=== PATIENT | female | born 1990 | race Caucasian/White ===

== ENCOUNTER 2018-01-29 16:20 | Emergency (ER) | payer BC, SELFPAY ==
[2018-01-29 16:44] VITALS: BP 113/65; PULSE 77; RESP 18; TEMP 37; O2SAT 99; BMI 27.4
[2018-01-29 17:02] LABS: UTC Influenza A Antigen Negative (Negative); UTC Influenza B Antigen Negative (Negative); UTC Strep Screen (Rapid) Negative (Negative)
[2018-01-29 17:26] VITALS: BP 113/65; PULSE 77; RESP 18; TEMP 37
--- NOTE | 2018-01-29 17:29 | HMH.EDUTC ---
[facility] [place] Clinical Impression: URI (upper respiratory infection) Qualifiers: URI type: unspecified URI Qualified Code(s): J06.9 - Acute upper respiratory infection, unspecified Disposition: Home, Self-Care Condition on Discharge: Good Instructions: Sore Throat Additional Instructions: * Monitor Temp. Tylenol and/or Ibuprofen as needed. ER if fever is no less than 101 despite alternating Tylenol and Ibuprofen * Encourage fluids, water, Gatorade, powerade, pedialyte if /toddler/or child * Warm salt water gargles for throat irritation *Warm fluids *Sore throat lozenges *Sleep elevated *humidifier or vaporizer Lots of rest Increase fluids, water, Gatorade, powerade *Your throat swab was sent to lab for culture. Those results area typically sent to your primary care physician. Be sure to follow up in 2-3 days if no improvement so they can review those results and treat if necessary If you dont have primary care I recommend you get one, but in the mean time you will have to return to a walk in clinic Follow up IMMEDIATELY for new or worsening of symptoms OR no noticeable improvement over the next 48-72 hours. 911 immediately for any life threatening symptoms such as chest pain or difficulty breathing Prescriptions: Azithromycin [Z-Sergo 250mg Tab] 250 mg PO UD DOSE PK #6 tab predniSONE [Prednisone 20mg Tab] 20 mg PO BID #10 tab Referrals: Manish Hilton MD [Primary Care Provider] - Forms: Work/School Release Time of Disposition: 17:34 Medical Decision Making - Medical Records Medical records reviewed: Yes: I reviewed the patient's medical records. - Gregorio Inquiry Pt receiving controlled substance: No Gregorio was queried for this patient: No Vital Signs: 01/29/18 16:44 01/29/18 17:26 Temperature 98.6 F 98.6 F Temperature Source Temporal Artery Scan Pulse Rate 77 Pulse Rate [Right] 77 Respiratory Rate 18 18 Blood Pressure 113/65 Blood Pressure [Right Arm] 113/65 Blood Pressure Mean [Right Arm] 81 Blood Pressure Source [Right Arm] Automatic Cuff Blood Pressure Position [Right Arm] Sitting 02 Sat by Pulse Oximetry 99 Oxygen Delivery Method Room Air - Lab Data Lab results reviewed: Yes: I reviewed the patient's lab results. Lab Results 01/29/18 17:00: Influenza Type A Ag Negative, Influenza Type B Ag Negative, Strep Scn Rapid Clinic Negative Orders (Tests/Meds): ORDERS Category Date Time Status Strep Screen Confirmation Stat Micro 01/29/18 17:00 Received [facility] – [place] HPI - General Stated complaint: sore throat Time Seen by Provider: 01/29/18 17:00 Mode of Arrival: Ambulatory Source of Information: Patient Limitations: No Limitations Description of Symptoms (Recalled from Triage Doc. by RN): SORE THROAT, FEVER HEENT Symptoms (Recalled from RN notes): Yes Resp Symptoms (Recalled from RN notes): No Skin Symptoms (Recalled from RN notes): No MS Symptoms (Recalled from RN notes): No Functional Status (Recalled from RN notes): N - History of Present Illness Provider Complaint: Patient state that she has had sore throat for several days now that has continued to get worse State that she use to have strep alot when she was a child and this feels like it did then State that throat feels raw and irritated and has continued to get worse Last night she ran a low grade fever and today she has continued to run the fever on and off so her brought her in to get her checked out - Related Data Previous Rx's Medication Instructions Recorded Azithromycin [Z-Sergo 250mg Tab] 250 mg PO UD DOSE PK #6 tab 01/29/18 predniSONE [Prednisone 20mg 20 mg PO BID #10 tab 01/29/18 Tab] Allergies Allergy/AdvReac Type Severity Reaction Status Date / Time Sulfa (Sulfonamide Allergy Unknown R/T Verified 01/29/18 16:47 Antibiotics) AUTOIMMUNE [SULFA (SULFONAMIDE DISEASE ANTIBIOTICS)] - Worker's Comp Is this a Worker's Comp case?: No [facility] History
--- NOTE | 2018-01-29 17:32 | ED_ITS ---
[facility] – [place] Disposition Clinical Impression: URI (upper respiratory infection) Qualifiers: URI type: unspecified URI Qualified Code(s): J06.9 - Acute upper respiratory infection, unspecified Disposition: Home, Self-Care Condition on Discharge: Good Instructions: Sore Throat Additional Instructions: * Monitor Temp. Tylenol and/or Ibuprofen as needed. ER if fever is no less than 101 despite alternating Tylenol and Ibuprofen * Encourage fluids, water, Gatorade, powerade, pedialyte if /toddler/or child * Warm salt water gargles for throat irritation *Warm fluids *Sore throat lozenges *Sleep elevated *humidifier or vaporizer Lots of rest Increase fluids, water, Gatorade, powerade *Your throat swab was sent to lab for culture. Those results area typically sent to your primary care physician. Be sure to follow up in 2-3 days if no improvement so they can review those results and treat if necessary If you don? t have primary care I recommend you get one, but in the mean time you will have to return to a walk in clinic Follow up IMMEDIATELY for new or worsening of symptoms OR no noticeable improvement over the next 48-72 hours. 911 immediately for any life threatening symptoms such as chest pain or difficulty breathing Prescriptions: Azithromycin [Z-Sergo 250mg Tab] 250 mg PO UD DOSE PK #6 tab predniSONE [Prednisone 20mg Tab] 20 mg PO BID #10 tab Referrals: Manish Hilton MD [Primary Care Provider] - Forms: Work/School Release Time of Disposition: 17:34 Medical Decision Making - Medical Records Medical records reviewed: Yes: I reviewed the patient's medical records. - Gregorio Inquiry Pt receiving controlled substance: No Gregorio was queried for this patient: No Vital Signs: 01/29/18 16:44 01/29/18 17:26 Temperature 98.6 F 98.6 F Temperature Source Temporal Artery Scan Pulse Rate 77 Pulse Rate [Right] 77 Respiratory Rate 18 18 Blood Pressure 113/65 Blood Pressure [Right Arm] 113/65 Blood Pressure Mean [Right Arm] 81 Blood Pressure Source [Right Arm] Automatic Cuff Blood Pressure Position [Right Arm] Sitting 02 Sat by Pulse Oximetry 99 Oxygen Delivery Method Room Air - Lab Data Lab results reviewed: Yes: I reviewed the patient's lab results. Lab Results 01/29/18 17:00: Influenza Type A Ag Negative, Influenza Type B Ag Negative, Strep Scn Rapid Clinic Negative Orders (Tests/Meds): ORDERS Category Date Time Status Strep Screen Confirmation Stat Micro 01/29/18 17:00 Received [facility] [place] HPI - General Stated complaint: sore throat Time Seen by Provider: 01/29/18 17:00 Mode of Arrival: Ambulatory Source of Information: Patient Limitations: No Limitations Description of Symptoms (Recalled from Triage Doc. by RN): SORE THROAT, FEVER HEENT Symptoms (Recalled from RN notes): Yes Resp Symptoms (Recalled from RN notes): No Skin Symptoms (Recalled from RN notes): No MS Symptoms (Recalled from RN notes): No Functional Status (Recalled from RN notes): N - History of Present Illness Provider Complaint: Patient state that she has had sore throat for several days now that has continued to get worse State that she use to have strep alot when she was a child and this feels like it did then State that throat feels raw and irritated and has continued to get worse Last night she ran a low grade fever and today she has continued to run the fever on and
== END 2018-01-29 17:40 | disposition home or self-care (01) ==
PROVIDERS: Emergency Provider Nurse Practitioner; Family Provider Emergency Medicine; PCP Emergency Medicine
DX: J06.9 Acute upper respiratory infection, unspecified (principal); Z88.2 Allergy status to sulfonamides
CPT/HCPCS: 87804; 87880; 99202

== ENCOUNTER → 2018-03-07 14:28 | Outpatient (CLI) | payer BC, SELFPAY ==
[2018-03-07 18:15] LABS: Basophils % 0.4 % (0.1-2.0); Eosinophils # 0.1 K/mm3 (0.0-0.4); Eosinophils % 1.6 % (0.1-12.0); Hematocrit 36.3 % (37.0-47.0); Hemoglobin 12.1 g/dL (12.2-16.2); Lymphocytes # 1.8 K/mm3 (0.7-4.5); Lymphocytes % 22.9 K/mm3 (10-50); Mean Corpuscular HGB Conc 33.3 g/dL (31.8-35.4); Mean Corpuscular Hemoglobin 29.6 pg (27.0-31.2); Mean Platelet Volume 8.7 fl (7.4-10.4); Monocytes # 0.6 K/mm3 (0.1-1.0); Monocytes % 7.8 % (1.7-9.3); Neutrophils # 5.4 K/mm3 (1.8-7.8); Neutrophils % 67.3 % (37.0-80.0); Platelet Count 337 K/mm3 (142-424); Red Blood Count 4.07 M/mm3 (4.20-5.40); Red Cell Distribution Width 13.2 % (11.5-17.5)
[2018-03-07 18:41] LABS: Alanine Aminotransferase 22 U/L (12-78); Albumin Level 3.6 gm/dL (3.4-5.0); Albumin/Globulin Ratio 1.1 (1.1-1.8); Alkaline Phosphatase 69 U/L (46-116); Aspartate Amino Transferase 15 U/L (15-37); Bilirubin,Total 0.3 mg/dL (0.2-1.0); Blood Urea Nitrogen 10 mg/dL (7-18); Carbon Dioxide 27 mmol/L (21.0-32.0); Chloride 106 mmol/L (98-107); Chol/HDL Ratio 2.4 (1-3.5); Cholesterol 169 mg/dL (140-200); Creatinine,Serum 0.69 mg/dL (0.55-1.02); Estimated Glomerular Filt Rate 103 ml/min (>60); GFR (African American) 124 ML/MIN (>60); Globulin 3.3 gm/dl (1.3-3.2); Glucose 87 mg/dL (74-106); HDL Cholesterol 71 mg/dL (29-89); LDL Cholesterol 91 mg/dL (0-130); Sodium 142 mmol/L (136-145); Total Protein,Serum 6.9 gm/dL (6.4-8.2); Triglycerides 34 mg/dL (30-200); VLDL Cholesterol 7 mg/dL (0-40)
== END ==
PROVIDERS: Visit Provider Nurse Practitioner Family
DX: R53.83 Other fatigue (principal); R10.9 Unspecified abdominal pain
CPT/HCPCS: 80053; 80061; 83013; 85025

== ENCOUNTER → 2018-03-13 14:44 | Outpatient (CLI) | payer BC, SELFPAY ==
--- NOTE | 2018-03-13 14:47 | US_ITS ---
US breast LT complete INDICATION: Pain the left breast, breast pain ORDERING PHYSICIAN: Aristeo Kapoor MD PATIENT AGE: 28 years TECHNIQUE: Standard ultrasound of the breast and axilla FINDINGS: No discrete solid or cystic mass evident. Small nodes are present in the axilla. IMPRESSION: Unremarkable left breast ultrasound BI-RADS Category: 1 Negative RECOMMENDED FOLLOW-UP: 1YR - 1 YEAR FOLLOW-UP Follow-up recommended As clinically warranted. Negative ultrasound does not exclude the possibility of malignancy. Any palpable abnormality should be managed on a clinical basis (A letter has been sent to the patient regarding results of the study.)
--- NOTE | 2018-03-13 14:47 | US_ITS ---
US breast RT complete COMPARISON: INDICATION: ORDERING PHYSICIAN: Aristeo Kapoor MD PATIENT AGE: 28 years TECHNIQUE: Standard ultrasound of the breast and axilla FINDINGS: No discrete solid mass evident. 3 mm cyst is present at 12:00 near the nipple Small nodes are present in the axilla. IMPRESSION: Small cyst near the nipple otherwise negative right breast ultrasound BI-RADS Category: 2 Benign Finding(s) Follow-up recommended As clinically warranted. Negative ultrasound does not exclude the possibility of malignancy. Any palpable abnormality should be managed on a clinical basis (A letter has been sent to the patient regarding results of the study.)
== END ==
PROVIDERS: Family Provider Emergency Medicine; PCP Emergency Medicine; Visit Provider Nurse Practitioner Obstetrics & Gynecology
DX: N60.12 Diffuse cystic mastopathy of left breast (principal); N60.11 Diffuse cystic mastopathy of right breast
CPT/HCPCS: 76641

== ENCOUNTER → 2018-03-18 07:50 | Outpatient (CLI) | payer BC, SELFPAY ==
--- NOTE | 2018-03-18 07:52 | US_ITS ---
US gallbladder HISTORY: Mid abdominal pain ITS.REASON: pain ORDERING PHYSICIAN: VIDA Lucas PATIENT AGE: 28 years COMPARISON: FINDINGS: PANCREAS: Unremarkable. No obvious mass or abnormal fluid collection. No ductal dilatation LIVER: No focal liver lesions demonstrated. Homogeneous echogenicity. No intrahepatic biliary ductal dilatation evident RIGHT KIDNEY: Unremarkable. Normal size and echogenicity. No hydronephrosis GALLBLADDER: No gallstones, gallbladder wall thickening, pericholecystic fluid, or biliary dilatation. Small amount sludge is present. IMPRESSION: Small amount sludge versus concentrated bile questionable clinical significance otherwise negative right upper quadrant ultrasound.
[2018-03-21 13:02] LABS: H. pylori Breath Test Negative (Negative)
== END ==
PROVIDERS: Nurse Practitioner Family; Family Provider Emergency Medicine; PCP Emergency Medicine; Visit Provider Physician Assistant
DX: R10.11 Right upper quadrant pain (principal); R10.9 Unspecified abdominal pain
CPT/HCPCS: 76705; 83013

== ENCOUNTER → 2018-04-10 10:53 | Outpatient (CLI) | payer BC, SELFPAY ==
--- NOTE | 2018-04-10 10:55 | NM_ITS ---
NM hepatobiliary w pharm HISTORY: Abdominal pain, ITS.REASON: gallbladder sludge ORDERING PHYSICIAN: Manish Hilton MD PATIENT AGE: 28 years COMPARISON: None DOSE: 7.97 mCi tc choletec 1,4 mcg inj into LT ant FINDINGS: Homogeneous activity is present within the hepatic parenchyma. Activity is present in the gallbladder by 10 minutes. Activity is present in the small bowel by 10 minutes. The gallbladder ejection fraction is calculated to be 89% The patient did not report pain or other symptoms during CCK infusion. IMPRESSION: Unremarkable hepatobiliary scan and gallbladder ejection fraction. No evidence of common or cystic duct obstruction with normal gallbladder ejection fraction
== END ==
PROVIDERS: Family Provider Emergency Medicine; PCP Emergency Medicine; Visit Provider Emergency Medicine
DX: R10.11 Right upper quadrant pain (principal)
CPT/HCPCS: 78227; A9537; J2805

== ENCOUNTER → 2018-04-30 15:19 | Outpatient (CLI) | payer BC, SELFPAY ==
[2018-04-30 15:40] LABS: Basophils # 0.1 K/mm3 (0-0.2); Basophils % 0.6 % (0.1-2.0); Eosinophils # 0.2 K/mm3 (0.0-0.4); Eosinophils % 2.8 % (0.1-12.0); Hematocrit 42.1 % (37.0-47.0); Hemoglobin 13.6 g/dL (12.2-16.2); Lymphocytes # 2.2 K/mm3 (0.7-4.5); Lymphocytes % 26.7 K/mm3 (10-50); Mean Corpuscular HGB Conc 32.4 g/dL (31.8-35.4); Mean Corpuscular Hemoglobin 28.8 pg (27.0-31.2); Mean Corpuscular Volume 88.9 fl (81-99); Mean Platelet Volume 7.7 fl (7.4-10.4); Monocytes # 0.5 K/mm3 (0.1-1.0); Monocytes % 6.2 % (1.7-9.3); Neutrophils # 5.3 K/mm3 (1.8-7.8); Neutrophils % 63.7 % (37.0-80.0); Platelet Count 352 K/mm3 (142-424); Red Blood Count 4.73 M/mm3 (4.20-5.40); Red Cell Distribution Width 12.9 % (11.5-17.5); White Blood Count 8.3 K/mm3 (4.8-10.8)
[2018-04-30 17:19] LABS: HCG,Quantitative 0 mIU/mL
== END ==
PROVIDERS: Visit Provider Otolaryngology
DX: Z01.818 Encounter for other preprocedural examination (principal); D22.30 Melanocytic nevi of unspecified part of face; L98.9 Disorder of the skin and subcutaneous tissue, unspecified
CPT/HCPCS: 36415; 84702; 85025; 93005

== ENCOUNTER → 2018-11-25 15:39 | Outpatient (CLI) | payer BC, SELFPAY ==
[2018-11-25 16:32] LABS: Basophils % 0.4 % (0.1-2.0); Eosinophils # 0.2 K/mm3 (0.0-0.4); Hematocrit 42.1 % (37.0-47.0); Hemoglobin 13.8 g/dL (12.2-16.2); Lymphocytes # 2.7 K/mm3 (0.7-4.5); Lymphocytes % 29.1 % (10-50); Mean Corpuscular HGB Conc 32.8 g/dL (31.8-35.4); Mean Corpuscular Hemoglobin 28.7 pg (27.0-31.2); Mean Corpuscular Volume 87.3 fl (81-99); Mean Platelet Volume 7.9 fl (7.4-10.4); Monocytes # 0.4 K/mm3 (0.1-1.0); Monocytes % 3.9 % (1.7-9.3); Neutrophils # 6.1 K/mm3 (1.8-7.8); Neutrophils % 64.5 % (37.0-80.0); Platelet Count 422 K/mm3 (142-424); Red Blood Count 4.82 M/mm3 (4.20-5.40); Red Cell Distribution Width 13.2 % (11.5-17.5); White Blood Count 9.4 K/mm3 (4.8-10.8)
[2018-11-25 19:20] LABS: Thyroid Stimulating Hormone 0.86 uIU/ml (0.358-3.740)
[2018-11-27 13:40] LABS: RA Latex Turbid. <10.0 IU/mL (0.0-13.9); Vitamin B12 650 pg/mL (232-1245); Vitamin D 25 Hydroxy 32.3 ng/mL (30.0-100.0)
[2018-11-27 15:15] LABS: Anti-Centromere B Antibodies <0.2 AI (0.0-0.9); Anti-Jo-1 <0.2 AI (0.0-0.9); Anti-Smith Antibody <0.2 AI (0.0-0.9); Antichromatin Antibodies <0.2 AI (0.0-0.9); Antiscleroderma-70 Antibodies <0.2 AI (0.0-0.9); RNP Antibodies <0.2 AI (0.0-0.9); Sjogren's Anti-SS-A <0.2 AI (0.0-0.9); Sjogren's Anti-SS-B <0.2 AI (0.0-0.9)
[2018-11-28 03:37] LABS: PTT-LA 35.9 sec (0.0-51.9); dRVVT 45.4 sec (0.0-47.0)
[2018-11-28 06:15] LABS: Anti-DNA (DS) Ab Qn 1 IU/mL (0-9)
[2018-11-28 06:16] LABS: Lupus Reflex Interpretation Comment: (.)
[2018-11-28 22:56] LABS: Anti-Cyclic Citrullinated Pept 7 units (0-19)
== END ==
PROVIDERS: Visit Provider Nurse Practitioner Family
DX: R53.83 Other fatigue (principal)
CPT/HCPCS: 36415; 82607; 82652; 84443; 85025; 85613; 86200; 86225; 86235; 86431

== ENCOUNTER → 2019-04-20 18:22 | Outpatient (CLI) | payer BC, SELFPAY | PROVIDERS: Visit Provider Nurse Practitioner Family | DX: N39.0 Urinary tract infection, site not specified (principal) | CPT/HCPCS: 87086 ==

== ENCOUNTER → 2019-05-06 14:28 | Outpatient (CLI) | payer BC, SELFPAY ==
--- NOTE | 2019-05-06 14:29 | US_ITS ---
US transvaginal HISTORY: Pelvic pain ITS.REASON: US T/V- Pelvic pain ORDERING PHYSICIAN: Aristeo Kapoor MD PATIENT AGE: 29 years Comparison: FINDINGS: Uterus measures 8.3 x 4 x 5 cm with a combined endometrial thickness of 6 mm. No mass. The ovaries have an unremarkable appearance. Blood flow is present within both ovaries. No cul-de-sac fluid. IMPRESSION: Unremarkable pelvic ultrasound
== END ==
PROVIDERS: PCP Emergency Medicine; Visit Provider Nurse Practitioner Obstetrics & Gynecology
DX: R10.2 Pelvic and perineal pain (principal)
CPT/HCPCS: 76830

== ENCOUNTER → 2019-07-02 12:20 | Outpatient (CLI) | payer BC, SELFPAY ==
[2019-07-04 08:31] LABS: Immunoglobulin A, Qn 183 mg/dL (87-352); Immunoglobulin G, Qn 915 mg/dL (700-1600)
[2019-07-04 22:27] LABS: Immunoglobulin M, Qn 72 mg/dL (26-217)
[2019-07-06 18:53] LABS: Tetanus Antitoxoid IgG Ab 0.94 IU/mL (<0.10)
[2019-07-07 17:10] LABS: Antibody Screen Negative (.)
[2019-07-08 07:25] LABS: Complement, Total (CH50) >60 U/mL (42-999999)
[2019-07-14 10:13] LABS: Pneumo Ab Type 14* 1.6 ug/mL (>1.3); Pneumo Ab Type 19 (19F)* 1.3 ug/mL (>1.3); Pneumo Ab Type 23 (23F)* <0.1 ug/mL (>1.3); Pneumo Ab Type 26 (6B)* 0.2 ug/mL (>1.3); Pneumo Ab Type 4* 0.2 ug/mL (>1.3); Pneumo Ab Type 56 (18C)* <0.1 ug/mL (>1.3)
[2019-07-14 10:32] LABS: Pneumo Ab Type 68 (9V)* 0.8 ug/mL (>1.3)
== END ==
PROVIDERS: Visit Provider Allergy & Immunology Allergy
DX: D84.9 Immunodeficiency, unspecified (principal)
CPT/HCPCS: 36415; 82784; 86003; 86161; 86162; 86280; 86609; 86648; 86774

== ENCOUNTER → 2019-12-01 15:27 | Outpatient (CLI) | payer BC, SELFPAY ==
[2019-12-01 17:05] LABS: Thyroid Stimulating Hormone 0.66 uIU/ml (0.358-3.740)
[2019-12-03 05:49] LABS: Iron 106 ug/dL (27-159); UIBC 223 ug/dL (131-425)
[2019-12-03 17:02] LABS: Iron Saturation 32 % (15-55); Vitamin B12 959 pg/mL (232-1245); Vitamin D 25 Hydroxy 33.4 ng/mL (30.0-100.0)
== END ==
PROVIDERS: Visit Provider Nurse Practitioner Psychiatric/Mental Health
DX: Z00.00 Encounter for general adult medical examination without abnormal findings (principal)
CPT/HCPCS: 36415; 82607; 82652; 83540; 83550; 84443

== ENCOUNTER 2020-05-17 20:25 | Emergency (ER) | payer BC, SELFPAY ==
[2020-05-17 20:43] VITALS: BP 110/65; PULSE 76; RESP 20; TEMP 36.9; O2SAT 98; BMI 30.4
[2020-05-17 20:56] VITALS: BP 124/70; PULSE 85; RESP 16; TEMP 37.2; O2SAT 99; BMI 30.3
--- NOTE | 2020-05-17 21:00 | PC.NURSE ---
PATIENT SENT TO ER PER ANNIE MACKENZIE APRN FOR FURTHER EVALUATION OF ABDOMINAL PAIN
--- NOTE | 2020-05-17 21:02 | HMH.EDABDPAI ---
ED Disposition Clinical Impression: Abdominal cramping Disposition: Home, Self-Care Condition on Discharge: Fair Instructions: DI for Acute Abdomen Additional Instructions: Reviewed labs and note mild renal failure; You received IV fluids for this; otherwise urine analysis,. CBC and CMP are essentially within normal limits. Will dc home With a prescription for Bentyl. Please follow up as needed Prescriptions: Dicyclomine HCl [Bentyl 10mg capsule] 10 mg PO TID PRN #10 cap PRN Reason: Cramping Transmission Status: Pending to [id number] Referrals: Manish Hilton MD [Primary Care Provider] - Time of Disposition: 22:01 - Critical Care Critical Care Time: No Attestation: On 05/17/20, the high probability of a clinically significant, sudden or life threatening deterioration of the following system(s) required my full and direct attention, intervention and personal management. The time I documented below is in addition to time spent performing reported procedures but includes the following listed in this critical care notation. Medical Decision Making - Medical Records Medical records reviewed: Yes: I reviewed the patient's medical records. MR Comment: 30-year-old female with a complaint of nonspecific diffuse abdominal pain, started this morning, no focal areas of pain, denies , history of IBS and takes Linzess for this. Reviewed labs and note mild renal failure; patient is getting IV fluids for this otherwise urine analysis CBC and CMP are essentially within normal limits. Will dc home With a prescription for Bentyl and advising follow up as needed - Gregorio Inquiry Pt receiving controlled substance: No Vital Signs: 05/17/20 20:43 05/17/20 20:56 Temperature 98.4 F 98.9 F Temperature Source Oral Oral Pulse Rate [Right Brachial] 76 85 Respiratory Rate 20 16 Blood Pressure [Right Arm] 110/65 124/70 Blood Pressure Mean [Right Arm] 80 88 Blood Pressure Source [Right Arm] Automatic Cuff Automatic Cuff Blood Pressure Position [Right Arm] Sitting Supine 02 Sat by Pulse Oximetry 98 99 Oxygen Delivery Method Room Air Room Air - Lab Data Lab Results 05/17/20 20:35: Urine Color Yellow, Urine Appearance Clear, Urine pH 5.5, Ur Specific [place] >= 1.030, Urine Protein Negative, Urine Glucose (UA) Negative, Urine Ketones Negative, Urine Blood Negative, Urine Nitrate Negative, Urine Bilirubin Negative, Urine Urobilinogen 0.2, Ur Leukocyte Esterase Negative 05/17/20 20:35: Urine HCG, Qual Negative 05/17/20 21:10: WBC 9.6, RBC 4.74, Hgb 14.3, Hct 41.6, MCV 87.7, MCH 30.1, MCHC 34.4, RDW 13.1, Plt Count 311, MPV 7.7, Neut % (Auto) 61.6, Lymph % (Auto) 29.9, [place] % (Auto) 5.6, Eos % (Auto) 2.2, Baso % (Auto) 0.7, Neut # (Auto) 5.9, Lymph # (Auto) 2.9, [place] # (Auto) 0.5, Eos # (Auto) 0.2, Baso # (Auto) 0.1 05/17/20 21:10: Sodium 141, Potassium 3.5, Chloride 103, Carbon Dioxide 26, Anion Gap 15.5 H, BUN 16, Creatinine 1.20 H, Estimated Creat Clear 82, Estimated GFR 53 L, Est GFR ( Amer) 64, Glucose 87, Calcium 9.7, Total Bilirubin 0.3, AST 23, ALT 17, Alkaline Phosphatase 62, Total Protein 8.1, Albumin 4.8, Globulin 3.3 H, Albumin/Globulin Ratio 1.5, Amylase 66, Lipase 89 05/17/20 21:30: Urine Color Yellow, Urine Appearance Clear, Urine pH 5.5, Ur Specific [place] >= 1.030, Urine Protein Negative, Urine Glucose (UA) Negative, Urine Ketones Negative, Urine Blood Negative, Urine Nitrate Negative, Urine Bilirubin Negative, Urine Urobilinogen 0.2, Ur Leukocyte Esterase Negative Result diagrams: 05/17/20 21:10 05/17/20 21:10 Orders (Tests/Meds): ED MEDICATIONS Generic Name Dose Route Start Last Admin Trade Name Freq PRN Reason Stop Dose Admin Sodium Chloride 1,000 mls @ 999 mls/hr 05/17/20 21:45 05/17/20 21:46 Sod Chlor 0.9% 1000ml Bag IV 05/17/20 22:45 999 mls/hr .[id number] SOLOMON Administration Discontinued Medications Generic Name Dose Route Start Last Admin Trade Name Freq
[2020-05-17 21:07] LABS: Microscopic, Urine URINE MICROSCOPIC (MICROSCOPIC)
[2020-05-17 21:10] LABS: Appearance,Urine CLEAR (Clear); Bilirubin,Urine Negative (Negative); Blood, Urine Negative (Negative); Color,Urine YELLOW (Yellow); Glucose,Urine (UA) Negative (Negative); Ketones,Urine Negative (Negative); Leukocyte Esterase,Urine Negative (Negative); Nitrate,Urine Negative (Negative); PH,Urine 5.5 (5.0-8.5); Protein,Urine Negative (Negative); Specific Gravity, Urine >= 1.030 (1.005-1.030); Urobilinogen,Urine 0.2 EU/dl (0.2)
[2020-05-17 21:13] LABS: Urine Pregnancy, HCG Qual. Negative (Negative)
[2020-05-17 21:16] LABS: Basophils # 0.1 K/mm3 (0-0.2); Basophils % 0.7 % (0.1-2.0); Eosinophils # 0.2 K/mm3 (0.0-0.4); Eosinophils % 2.2 % (0.1-12.0); Hematocrit 41.6 % (37.0-47.0); Hemoglobin 14.3 g/dL (12.2-16.2); Lymphocytes # 2.9 K/mm3 (0.7-4.5); Lymphocytes % 29.9 % (10-50); Mean Corpuscular HGB Conc 34.4 g/dL (31.8-35.4); Mean Corpuscular Hemoglobin 30.1 pg (27.0-31.2); Mean Corpuscular Volume 87.7 fl (81-99); Mean Platelet Volume 7.7 fl (7.4-10.4); Monocytes # 0.5 K/mm3 (0.1-1.0); Monocytes % 5.6 % (1.7-9.3); Neutrophils # 5.9 K/mm3 (1.8-7.8); Neutrophils % 61.6 % (37.0-80.0); Platelet Count 311 K/mm3 (142-424); Red Blood Count 4.74 M/mm3 (4.20-5.40); Red Cell Distribution Width 13.1 % (11.5-17.5); White Blood Count 9.6 K/mm3 (4.8-10.8)
[2020-05-17 21:24] LABS: Chloride 103 mmol/L (98-107); Potassium 3.5 mmoL/L (3.5-5.1); Sodium 141 mmol/L (136-145)
[2020-05-17 21:26] LABS: Amylase 66 U/L (30-110)
[2020-05-17 21:27] LABS: Alanine Aminotransferase 17 U/L (12-78); Albumin Level 4.8 g/dl (3.5-5.0); Albumin/Globulin Ratio 1.5 (1.1-1.8); Alkaline Phosphatase 62 U/L (38-126); Anion Gap 15.5 mEq/L (5-15); Aspartate Amino Transferase 23 U/L (14-36); Bilirubin,Total 0.3 mg/dl (0.2-1.3); Blood Urea Nitrogen 16 mg/dl (7-17); Calcium 9.7 mg/dl (8.4-10.2); Carbon Dioxide 26 mmol/L (22.0-30.0); Creatinine Clearance Estimated 82 mL/min (50-200); Estimated Glomerular Filt Rate 53 ml/min (>60); GFR (African American) 64 ML/MIN (>60); Globulin 3.3 g/dL (1.3-3.2); Glucose 87 mg/dl (74-100); Lipase 89 U/L (23-300); Total Protein,Serum 8.1 g/dl (6.3-8.2)
[2020-05-17 21:31] LABS: Apearance,Urine Clear (Clear); Color,Urine Yellow (Yellow); PH,Urine 5.5 (5.0-8.5)
[2020-05-17 21:32] LABS: Bilirubin,Urine Negative (Negative); Blood, Urine Negative (Negative); Glucose,Urine (UA) Negative (Negative); Ketones,Urine Negative (Negative); Protein,Urine Negative (Negative); Specific Gravity, Urine >= 1.030 (1.005-1.030); UTC Leukocyte Esterase,Urine Negative (Negative); UTC Nitrate,Urine Negative (Negative); Urobilinogen,Urine 0.2 EU/dl (0.2)
[2020-05-17 21:59] LABS: Bacteria,Urine 1+ /lpf
[2020-05-17 22:17] VITALS: BP 161/84; PULSE 99; RESP 14; TEMP 37.1; O2SAT 99
== END 2020-05-17 22:23 | disposition home or self-care (01) ==
LOC: UTC 20:38 → ER 20:50
PROVIDERS: Nurse Practitioner Family; Emergency Provider Emergency Medicine; PCP Emergency Medicine
DX: R10.10 Upper abdominal pain, unspecified (principal); I10 Essential (primary) hypertension; K58.9 Irritable bowel syndrome, unspecified; Z79.899 Other long term (current) drug therapy; Z88.2 Allergy status to sulfonamides
CPT/HCPCS: 80053; 81001; 81003; 81025; 82150; 83690; 85025; 96365; 96375; 99283; J2405

== ENCOUNTER → 2020-06-06 17:17 | Outpatient (CLI) | payer BC, SELFPAY ==
[2020-06-06 17:37] LABS: Chloride 104 mmol/L (98-107); Potassium 4.8 mmoL/L (3.5-5.1); Sodium 140 mmol/L (136-145)
[2020-06-06 17:40] LABS: Anion Gap 14.8 mEq/L (5-15); Blood Urea Nitrogen 11 mg/dl (7-17); Carbon Dioxide 26 mmol/L (22.0-30.0); Estimated Glomerular Filt Rate 74 ml/min (>60); GFR (African American) 90 ML/MIN (>60); Glucose 80 mg/dl (74-100)
== END ==
PROVIDERS: Visit Provider Emergency Medicine
DX: R79.89 Other specified abnormal findings of blood chemistry (principal)
CPT/HCPCS: 80048

== ENCOUNTER 2020-08-22 08:05 | Emergency (ER) | payer BC, SELFPAY ==
[2020-08-22 08:07] VITALS: BP 113/73; PULSE 95; RESP 16; TEMP 37; O2SAT 100; BMI 29.2
--- NOTE | 2020-08-22 08:11 | HMH.EDGENADL ---
ED Disposition Clinical Impression: Bruised toe Disposition: Home, Self-Care Condition on Discharge: Good Instructions: Toe Sprain Additional Instructions: Take Tylenol/ibuprofen as needed for pain. Use ice packs to help with swelling. May also take toes together/cristela taping to help alleviate pressure. Avoid strenuous exercise or running until swelling improves. Referrals: Manish Hilton MD [Primary Care Provider] - - Critical Care Critical Care Time: No Attestation: On , the high probability of a clinically significant, sudden or life threatening deterioration of the following system(s) required my full and direct attention, intervention and personal management. The time I documented below is in addition to time spent performing reported procedures but includes the following listed in this critical care notation. Medical Decision Making - Medical Records Medical records reviewed: Yes: I reviewed the patient's medical records. - Gregorio Inquiry Pt receiving controlled substance: No Vital Signs: 08/22/20 08:07 Temperature 98.6 F Temperature Source Oral Pulse Rate [Right Radial] 95 H Respiratory Rate 16 Blood Pressure [Right Arm] 113/73 Blood Pressure Mean [Right Arm] 86 Blood Pressure Source [Right Arm] Automatic Cuff Blood Pressure Position [Right Arm] Sitting 02 Sat by Pulse Oximetry 100 Oxygen Delivery Method Room Air Orders (Tests/Meds): ED MEDICATIONS Discontinued Medications Generic Name Dose Route Start Last Admin Trade Name Steve PRN Reason Stop Dose Admin Acetaminophen 1,000 mg 08/22/20 08:18 08/22/20 08:20 Acetaminophen 500mg Tab PO 08/22/20 08:19 1,000 mg ONCE ONE Administration ORDERS Category Date Time Status XR foot RT min 3V Stat Exams 08/22/20 08:14 Taken Medical Decision Narrative: 30-year-old female seen and evaluated for right second toe pain after trauma. Physical exam significant for swelling and tenderness to palpation of right second toe with no lacerations or visible bony deformities. Differential diagnosis includes but is not limited to sprain/stubbed toe, fractured toe, and dislocated toe/metatarsal. Obtained x-rays which showed no acute fractures or dislocations. Provided patient with Tylenol and advised on return precautions/proper care for stubbed toe. Patient ambulatory in emergency department. Safe to discharge at this time. General Adult HPI - General Stated complaint: rt foot middle toe pain Time Seen by Provider: 08/22/20 08:10 Mode of Arrival: Ambulatory Source of Information: Patient Limitations: No Limitations - History of Present Illness HPI narrative: 30-year-old female with no significant past medical problems who presents to the emergency department for evaluation of right toe pain. Patient states that last night she stubbed it on a dresser. Initially cristela taped toes together, but then this morning hit toe again and had throbbing pain so came to emergency department. Took ibuprofen prior to arrival but no other pain medications. Denies any other injuries. Denies any fevers, chills, cough, or any other symptoms at this time. - Related Data Home Medications Medication Instructions Recorded Confirmed Linaclotide [Linzess] 145 mcg PO DAILY 06/22/19 06/22/20 medroxyprogesterone 150 mg/mL 150 mg IM DIRECTED 12/15/19 06/22/20 intramuscular suspension levocetirizine 5 mg tablet mg PO 03/03/20 06/22/20 omeprazole 20 mg capsule,delayed 20 mg PO DAILY 03/03/20 06/22/20 release Previous Rx's Medication Instructions Recorded estradiol 2 mg tablet 2 mg PO DAILY #30 tab 03/14/20 epinephrine 0.3 mg/0.3 mL See Rx Instructions .ROUTE 04/13/20 injection, auto-injector .COMPLEX #2 each Dicyclomine HCl [Bentyl 10mg 10 mg PO TID PRN #10 cap 05/17/20 capsule] montelukast 10 mg tablet 10 mg PO DAILY #90 tab 06/13/20 phentermine 37.5 mg tablet 37.5 mg PO DAILY #30 tab 06/22/20 bupropion HCl 150 mg 24 hr t
--- NOTE | 2020-08-22 08:14 | XR_ITS ---
PROCEDURE: XR FOOT RT MIN 3V CLINICAL INDICATION: right 2nd toe swelling after trauma COMPARISON: No exams were available for comparison FINDINGS: No fracture or dislocation. No lytic or blastic change. There is normal mineralization. The joint spaces are well-preserved. There is mild soft tissue swelling about the distal phalanx of the 2nd toe. There is mild hallux valgus noted and there is a small subchondral cyst 1st metatarsal head. The plantar arch is normal. Other findings:None. IMPRESSION: Negative for acute fracture Dictated by: Dr. Oswald Colon MD 08/22/2020 09:04 Dr. Oswald Colon MD in [place] 08/22/2020 09:04
--- NOTE | 2020-08-22 08:17 | PC.NURSE ---
sarah notified of xray order, spoke with rosalinda
[2020-08-22 08:50] VITALS: BP 113/73; PULSE 95; RESP 16; TEMP 37; O2SAT 100
== END 2020-08-22 08:50 | disposition home or self-care (01) ==
PROVIDERS: Emergency Provider Emergency Medicine; PCP Emergency Medicine
DX: S90.121A Contusion of right lesser toe(s) without damage to nail, initial encounter (principal); W22.8XXA Striking against or struck by other objects, initial encounter; Y92.019 Unspecified place in single-family (private) house as the place of occurrence of the external cause; I10 Essential (primary) hypertension; Z88.2 Allergy status to sulfonamides
CPT/HCPCS: 73630; 99282

== ENCOUNTER → 2020-09-06 14:58 | Outpatient (CLI) | payer BC, SELFPAY ==
--- NOTE | 2020-09-06 15:06 | XR_ITS ---
PROCEDURE: XR FOOT WT BEARING LT 3V CLINICAL INDICATION: bunions COMPARISON: CR XR FOOT RT MIN 3V from 08/22/2020 FINDINGS: No fracture or dislocation. No lytic or blastic change. There is normal mineralization. The joint spaces are well-preserved. No significant degenerative/arthritic changes. No erosive changes evident. Other findings:Minimal hypertrophy at the neck of the talus anteriorly. Good alignment IMPRESSION: No acute findings. Dictated by: Lonnie Palm MD 09/07/2020 06:41 Lonnie Palm MD in [place] 09/07/2020 06:41
--- NOTE | 2020-09-06 15:06 | XR_ITS ---
PROCEDURE: XR FOOT WT BEARING RT 3V CLINICAL INDICATION: bunions Pain COMPARISON: CR XR FOOT RT MIN 3V from 08/22/2020 CR XR FOOT WT BEARING LT 3V from 09/06/2020 FINDINGS: Hallux valgus with bunion formation at the distal aspect of the 1st metatarsal. A lucency is present at the head of the 1st metatarsal and could be due to a developing subchondral cyst. There is good alignment. The joint spaces are well-preserved. No significant degenerative/arthritic changes. No erosive changes evident. Other findings:None. IMPRESSION: Hallux valgus with bunion formation at the distal aspect of the 1st metatarsal. This is slightly worse than when compared to the previous exam Dictated by: Lonnie Palm MD 09/07/2020 06:40 Lonnie Palm MD in [place] 09/07/2020 06:40
== END ==
PROVIDERS: PCP Emergency Medicine; Visit Provider Podiatrist
DX: M21.612 Bunion of left foot (principal); M21.611 Bunion of right foot
CPT/HCPCS: 73630

== ENCOUNTER 2020-09-19 08:08 | Emergency (ER) | payer BC, SELFPAY ==
[2020-09-19] VITALS (7 sets, daily range): BP systolic 102–136; BP diastolic 64–75; PULSE 60–102; RESP 16; TEMP 36.6–36.7; O2SAT 97–100; BMI 29.2
--- NOTE | 2020-09-19 09:04 | HMH.EDGENADL ---
ED Disposition Clinical Impression: Gastroenteritis Disposition: Home, Self-Care Condition on Discharge: Fair Instructions: DI for Nausea -- Adult, DI for Viral Gastroenteritis -- Adult Additional Instructions: We have checked your labs and show no acute findings; we have also checked for the flu a and B and these are both negative; coronavirus testing has been done; the results are not back yet but as you are feeling reasonably well there is no reason to wait for it and hence you are being discharged home we will be giving you a prescription for Zofran for nausea please make sure that you quarantine until the results of the coronavirus are back Referrals: Manish Hilton MD [Primary Care Provider] - - Critical Care Critical Care Time: No Attestation: On 09/19/20, the high probability of a clinically significant, sudden or life threatening deterioration of the following system(s) required my full and direct attention, intervention and personal management. The time I documented below is in addition to time spent performing reported procedures but includes the following listed in this critical care notation. Medical Decision Making - Medical Records Medical records reviewed: Yes: I reviewed the patient's medical records. - Gregorio Inquiry Pt receiving controlled substance: No Vital Signs: 09/19/20 08:12 09/19/20 08:26 09/19/20 08:39 Temperature 98.1 F Temperature Source Oral Pulse Rate [Right Radial] 102 H 87 87 Respiratory Rate 16 Blood Pressure [Right Arm] 136/72 120/75 120/75 Blood Pressure Mean [Right Arm] 93 90 90 Blood Pressure Source [Right Arm] Automatic Cuff Automatic Cuff Automatic Cuff Blood Pressure Position [Right Arm] Sitting Sitting Sitting 02 Sat by Pulse Oximetry 100 Oxygen Delivery Method Room Air 09/19/20 09:09 09/19/20 09:30 09/19/20 10:00 Temperature Temperature Source Pulse Rate [Right Radial] 90 84 60 Respiratory Rate Blood Pressure [Right Arm] 114/71 102/68 L 110/70 Blood Pressure Mean [Right Arm] 85 79 83 Blood Pressure Source [Right Arm] Automatic Cuff Automatic Cuff Automatic Cuff Blood Pressure Position [Right Arm] Sitting Sitting Sitting 02 Sat by Pulse Oximetry 100 99 99 Oxygen Delivery Method Room Air Room Air Room Air - Lab Data Lab results reviewed: Yes: I reviewed the patient's lab results. Lab Results 09/19/20 09:25: Influenza Type A Ag Negative, Influenza Type B Ag Negative 09/19/20 09:27: WBC 13.6 H, RBC 5.15, Hgb 15.3, Hct 45.6, MCV 88.5, MCH 29.6, MCHC 33.5, RDW 13.5, Plt Count 367, MPV 8.1, Neut % (Auto) 77.8, Lymph % (Auto) 13.3, [place] % (Auto) 5.3, Eos % (Auto) 3.4, Baso % (Auto) 0.3, Neut # (Auto) 10.6 H, Lymph # (Auto) 1.8, [place] # (Auto) 0.7, Eos # (Auto) 0.5 H, Baso # (Auto) 0.0 09/19/20 09:27: Sodium 141, Potassium 4.5, Chloride 106, Carbon Dioxide 25, Anion Gap 14.5, BUN 16, Creatinine 1.00, Estimated Creat Clear 95, Estimated GFR 66, Est GFR ( Amer) 79, Glucose 99, Calcium 10.0, Total Bilirubin 0.4, AST 24, ALT 23, Alkaline Phosphatase 70, Total Protein 8.4 H, Albumin 5.0, Globulin 3.4 H, Albumin/Globulin Ratio 1.5, Amylase 60 Result diagrams: 09/19/20 09:27 09/19/20 09:27 Orders (Tests/Meds): ORDERS Category Date Time Status Covid-19 Nasal PCR ([facility]) Routine Lab 09/19/20 09:25 Received Lipase Stat Lab 09/19/20 09:27 Received General Adult HPI - General Chief complaint: Nausea/Vomiting/Diarrhea Stated complaint: stomach pain, diarrhea, congestion Time Seen by Provider: 09/19/20 08:35 Mode of Arrival: Ambulatory Source of Information: Patient Limitations: No Limitations Description of Symptoms (Recalled from ER Triage Doc. by RN): Pt reports runny nose, congestion, cough x2 days. Pt reports woke up this morning with cramping in lower abd and 6 episodes of diarrhea today. Pt reports exposure to a covid positive individual approx 2-3 days ago for approx 15 minutes. - History of Present Illness HPI narrative:
[2020-09-19 09:34] LABS: Basophils % 0.3 % (0.1-2.0); Eosinophils # 0.5 K/mm3 (0.0-0.4); Eosinophils % 3.4 % (0.1-12.0); Hematocrit 45.6 % (37.0-47.0); Hemoglobin 15.3 g/dL (12.2-16.2); Lymphocytes # 1.8 K/mm3 (0.7-4.5); Lymphocytes % 13.3 % (10-50); Mean Corpuscular HGB Conc 33.5 g/dL (31.8-35.4); Mean Corpuscular Hemoglobin 29.6 pg (27.0-31.2); Mean Corpuscular Volume 88.5 fl (81-99); Mean Platelet Volume 8.1 fl (7.4-10.4); Monocytes # 0.7 K/mm3 (0.1-1.0); Monocytes % 5.3 % (1.7-9.3); Neutrophils # 10.6 K/mm3 (1.8-7.8); Neutrophils % 77.8 % (37.0-80.0); Platelet Count 367 K/mm3 (142-424); Red Blood Count 5.15 M/mm3 (4.20-5.40); Red Cell Distribution Width 13.5 % (11.5-17.5); White Blood Count 13.6 K/mm3 (4.8-10.8)
[2020-09-19 09:39] LABS: Chloride 106 mmol/L (98-107); Potassium 4.5 mmoL/L (3.5-5.1); Sodium 141 mmol/L (136-145)
[2020-09-19 09:41] LABS: Amylase 60 U/L (30-110)
[2020-09-19 09:42] LABS: Alanine Aminotransferase 23 U/L (12-78); Albumin/Globulin Ratio 1.5 (1.1-1.8); Alkaline Phosphatase 70 U/L (38-126); Anion Gap 14.5 mEq/L (5-15); Aspartate Amino Transferase 24 U/L (14-36); Bilirubin,Total 0.4 mg/dl (0.2-1.3); Blood Urea Nitrogen 16 mg/dl (7-17); Carbon Dioxide 25 mmol/L (22.0-30.0); Creatinine Clearance Estimated 95 mL/min (50-200); Estimated Glomerular Filt Rate 66 ml/min (>60); GFR (African American) 79 ML/MIN (>60); Globulin 3.4 g/dL (1.3-3.2); Glucose 99 mg/dl (74-100); Total Protein,Serum 8.4 g/dl (6.3-8.2)
[2020-09-19 11:53] LABS: Lipase 70 U/L (23-300)
== END 2020-09-19 10:26 | disposition home or self-care (01) ==
PROVIDERS: Emergency Provider Emergency Medicine; PCP Emergency Medicine
DX: Z20.828 Contact with and (suspected) exposure to other viral communicable diseases (principal); K52.9 Noninfective gastroenteritis and colitis, unspecified; I10 Essential (primary) hypertension; Z79.899 Other long term (current) drug therapy
CPT/HCPCS: 80053; 82150; 83690; 85025; 87275; 87276; 99283; U0003

== ENCOUNTER 2021-03-14 16:06 | Emergency (ER) | payer BC, SELFPAY ==
[2021-03-14 16:15] VITALS: BP 132/81; PULSE 86; RESP 19; TEMP 37; O2SAT 100; BMI 30.9
--- NOTE | 2021-03-14 16:34 | HMH.EDUTC ---
[facility] [place] Impression: Strep throat Upper respiratory infection Qualifiers: URI type: unspecified URI Qualified Code(s): J06.9 - Acute upper respiratory infection, unspecified Disposition: Home, Self-Care Condition on Discharge: Good Instructions: DI for Strep Throat Additional Instructions: Drink plenty of fluids. Take tylenol or ibuprofen for pain or fever. Take the medications as directed. Throw your tooth brush away and get a new one. Follow up with your regular doctor. GO TO THE ER FOR ANY WORSENING SYMPTOMS Prescriptions: Azithromycin [Z-Sergo 250mg Tab*] 250 mg PO UD DOSE PK #6 tab Transmission Status: Received by [id number] Referrals: Manish Hilton MD [Primary Care Provider] - Forms: Work/School Release Time of Disposition: 17:03 Medical Decision Making - Medical Records Medical records reviewed: No: I reviewed the patient's medical records. - Gregorio Inquiry Pt receiving controlled substance: No Vital Signs: 03/14/21 16:15 03/14/21 17:06 Temperature 98.6 F 98.6 F Temperature Source Oral Pulse Rate 86 Pulse Rate [Right Brachial] 86 Respiratory Rate 19 19 Blood Pressure 132/81 Blood Pressure [Right Arm] 132/81 Blood Pressure Mean [Right Arm] 98 Blood Pressure Source [Right Arm] Automatic Cuff Blood Pressure Position [Right Arm] Sitting 02 Sat by Pulse Oximetry 100 Oxygen Delivery Method Room Air - Lab Data Lab results reviewed: Yes: I reviewed the patient's lab results. Lab Results 03/14/21 16:09: Strep Scn Rapid Clinic Positive A [facility] [place] - General Stated complaint: cough,BONILLA sore throat Time Seen by Provider: 03/14/21 16:34 Mode of Arrival: Ambulatory Source of Information: Patient Limitations: No Limitations Description of Symptoms (Recalled from Triage Doc. by RN): PATIENT C/O HEADACHE, SORE THROAT, AND DRAINAGE SINCE YESTERDAY HEENT Symptoms (Recalled from RN notes): Yes Resp Symptoms (Recalled from RN notes): No Skin Symptoms (Recalled from RN notes): No MS Symptoms (Recalled from RN notes): No Functional Status (Recalled from RN notes): WNL - History of Present Illness Provider Complaint: She c/o sore throat for the past 1 days. She has had sinus drainge and ear pain also. - Related Data Home Medications Medication Instructions Recorded Confirmed levocetirizine 5 mg tablet 10 mg PO DAILY 03/03/20 03/14/21 ARIPiprazole [Aripiprazole] 5 mg PO QHS 03/14/21 03/14/21 buPROPion HCL [Wellbutrin XL] 300 mg PO DAILY 03/14/21 03/14/21 estradioL [Estradiol] 2 mg PO DAILY 03/14/21 03/14/21 Previous Rx's Medication Instructions Recorded montelukast 10 mg tablet 10 mg PO DAILY #90 tab 12/05/20 linaclotide 145 mcg capsule 145 mcg PO DAILY #30 cap 12/13/20 Azithromycin [Z-Sergo 250mg Tab*] 250 mg PO UD DOSE PK #6 tab 03/14/21 Allergies Allergy/AdvReac Type Severity Reaction Status Date / Time Sulfa (Sulfonamide Allergy Unknown R/T Verified 12/07/20 16:00 Antibiotics) AUTOIMMUNE [SULFA (SULFONAMIDE DISEASE ANTIBIOTICS)] guaifenesin [From Mucinex] Allergy Verified 12/07/20 16:00 - Worker's Comp Is this a Worker's Comp case?: No [facility] History - Hepatitis A Screen Drug use history?: No High risk sexual behaviors?: No History of sexually transmitted infection?: No Currently employed?: No Childcare worker?: No Do you have indoor plumbing?: Yes Do you have electricity?: Yes Attestation statement:: This patient has been screened for Hepatitis A risk factors. I have reviewed the patient's past medical history: Yes Medical History: Reports:: Hypertension Denies:: Anxiety, Cancer, Depression, Diabetes Mellitus Type 1, Diabetes Mellitus Type 2, Hyperlipidemia, Internal Pacemaker, Migraine, MRSA, Seizures Other Medical History: Denies: Blood Transfusion Reaction Laterality Cases: Bilateral: Other Other Surgeries: Yes: No Previous Surgery. No: Pacemaker Amputation: No Fractures: No Comm
[2021-03-14 16:38] LABS: UTC Strep Screen (Rapid) Positive (Negative)
[2021-03-14 17:06] VITALS: BP 132/81; PULSE 86; RESP 19; TEMP 37; O2SAT 100
== END 2021-03-14 17:13 | disposition home or self-care (01) ==
PROVIDERS: Emergency Provider Nurse Practitioner Family; PCP Emergency Medicine
DX: J02.0 Streptococcal pharyngitis (principal); I10 Essential (primary) hypertension; Z88.2 Allergy status to sulfonamides; Z79.899 Other long term (current) drug therapy
CPT/HCPCS: 87880; 99202; G0463

== ENCOUNTER 2021-04-30 16:34 | Emergency (ER) | payer BC, SELFPAY ==
[2021-04-30 17:10] VITALS: BP 116/74; PULSE 86; RESP 16; TEMP 36.8; O2SAT 99; BMI 32.5
--- NOTE | 2021-04-30 17:56 | HMH.EDUTC ---
[facility] [place]ression: Allergic rhinitis Qualifiers: Allergic rhinitis trigger: unspecified Allergic rhinitis seasonality: unspecified Qualified Code(s): J30.9 - Allergic rhinitis, unspecified Disposition: Home, Self-Care Condition on Discharge: Good Instructions: DI for Allergic Rhinitis, Allergic Rhinitis Additional Instructions: *Monitor Temp, Over the counter Motrin or Tylenol as directed/as needed Tylenol every 4 hours and Motrin every 6 hours (as long as your family doctor has told you that you can take it) for fever or pain. and straight to ER if unable to lower temp less than 101.0 after medication given *Warm fluids like tea with honey may help to soothe the throat and open up sinus congestion *Sleep elevated *Humidifier/Vaporizer *Flonase 2 sprays in each nostril daily but be aware that it may take 2-3 days before you notice improvement Follow up IMMEDIATELY for new or worsening symptoms or no Noticeable improvement over the next 48-72 hours. 911 for difficulty breathing or swallowing Prescriptions: methylPREDNISolone [Medrol 4mg tab] 4 mg PO DIRECTED #21 tab Transmission Status: Pending to [id number] Referrals: Manish Hilton MD [Primary Care Provider] - As needed Time of Disposition: 18:03 Medical Decision Making - Gregorio Inquiry Pt receiving controlled substance: No Gregorio was queried for this patient: No Vital Signs: 04/30/21 17:10 Temperature 98.2 F Temperature Source Oral Pulse Rate [Right Brachial] 86 Respiratory Rate 16 Blood Pressure [Right Arm] 116/74 Blood Pressure Mean [Right Arm] 88 Blood Pressure Source [Right Arm] Automatic Cuff Blood Pressure Position [Right Arm] Sitting 02 Sat by Pulse Oximetry 99 Oxygen Delivery Method Room Air [facility] [place] - General Stated complaint: congested Time Seen by Provider: 04/30/21 17:56 Mode of Arrival: Ambulatory Source of Information: Patient Limitations: No Limitations Description of Symptoms (Recalled from Triage Doc. by RN): PATIENT C/O SNEEZING, WATERY EYES, NASAL CONGESTION, AND COUGHING SINCE THIS MORNING HEENT Symptoms (Recalled from RN notes): Yes Resp Symptoms (Recalled from RN notes): Yes Skin Symptoms (Recalled from RN notes): No MS Symptoms (Recalled from RN notes): No Functional Status (Recalled from RN notes): WNL - History of Present Illness Provider Complaint: Patient states that she has been having cough, runny nose, watery eyes and sneezing that started this morning States that she is feeling stuffy under her eyes States that she feels like it may be allergies but wanted to get it checked - Related Data Home Medications Medication Instructions Recorded Confirmed ARIPiprazole [Aripiprazole] 5 mg PO QHS 03/14/21 04/30/21 buPROPion HCL [Wellbutrin XL] 300 mg PO DAILY 03/14/21 04/30/21 Levocetirizine Dihydrochloride 5 mg PO DAILY 04/30/21 04/30/21 [Xyzal] Montelukast Sodium [Singulair 10mg 10 mg PO HS 04/30/21 04/30/21 tablet] Previous Rx's Medication Instructions Recorded linaclotide 145 mcg capsule 145 mcg PO DAILY #30 cap 12/13/20 methylPREDNISolone [Medrol 4mg 4 mg PO DIRECTED #21 tab 04/30/21 tab] Allergies Allergy/AdvReac Type Severity Reaction Status Date / Time Sulfa (Sulfonamide Allergy Unknown R/T Verified 12/07/20 16:00 Antibiotics) AUTOIMMUNE [SULFA (SULFONAMIDE DISEASE ANTIBIOTICS)] guaifenesin [From Mucinex] Allergy Verified 12/07/20 16:00 - Worker's Comp Is this a Worker's Comp case?: No [facility] History - Hepatitis A Screen Drug use history?: No High risk sexual behaviors?: No History of sexually transmitted infection?: No Currently employed?: No Childcare worker?: No Do you have indoor plumbing?: Yes Do you have electricity?: Yes Attestation statement:: This patient has been screened for Hepatitis A risk factors. I have reviewed the patient's past medical history: Yes Medical History: Reports:: Hypertension
[2021-04-30 18:06] VITALS: BP 116/74; PULSE 86; RESP 16; TEMP 36.8; O2SAT 99
== END 2021-04-30 18:11 | disposition home or self-care (01) ==
PROVIDERS: Emergency Provider Nurse Practitioner; PCP Emergency Medicine
DX: J30.9 Allergic rhinitis, unspecified (principal); I10 Essential (primary) hypertension; Z88.2 Allergy status to sulfonamides
CPT/HCPCS: 99202; G0463

== ENCOUNTER 2021-05-17 12:54 | Emergency (ER) | payer BC, SELFPAY ==
[2021-05-17 13:00] VITALS: BP 122/78; PULSE 85; RESP 14; TEMP 36.5; O2SAT 100; BMI 31.4
--- NOTE | 2021-05-17 13:30 | HMH.EDUTC ---
[facility] [place] Clinical Impression: Strep throat Disposition: Home, Self-Care Condition on Discharge: Good Instructions: DI for Strep Throat, Strep Throat, Amoxicillin Additional Instructions: *Monitor Temp, Over the counter Motrin or Tylenol as directed/as needed Tylenol every 4 hours and Motrin every 6 hours (as long as your family doctor has told you that you can take it) for fever or pain. and straight to ER if unable to lower temp less than 101.0 after medication given *Warm salt water gargles may help to soothe the throat *Throat Lozenges *Warm fluids like tea with honey may help to soothe the throat *Sleep elevated *Humidifier/Vaporizer If you did not take Penicillin shot or was unable to, start taking antibiotic immediately and make sure that you take it for the FULL length of time although you should start to feel better in 24-48 hours *change toothbrush and toothpaste 24-48 hours after starting to take antibiotics so you do not reinfect yourself Monitor Temp. Tylenol and/or Ibuprofen as needed. ER if fever is no less than 101 despite alternating Tylenol and Ibuprofen * Encourage fluids, water, Gatorade, powerade, pedialyte if /toddler/or child *Cold fluids, popsicles and ice cream may feel good on his throat Follow up IMMEDIATELY for new or worsening symptoms or no Noticeable improvement over the next 48-72 hours. 911 for difficulty breathing or swallowing Prescriptions: Amoxicillin [Amoxicillin 500mg Cap] 500 mg PO TID #30 cap Transmission Status: Pending to [id number] Referrals: Manish Hilton MD [Primary Care Provider] - As needed Time of Disposition: 13:35 Medical Decision Making - Gregorio Inquiry Pt receiving controlled substance: No Gregorio was queried for this patient: No Vital Signs: 05/17/21 13:00 Temperature 97.7 F Temperature Source Oral Pulse Rate [Left] 85 Respiratory Rate 14 Blood Pressure [Right Arm] 122/78 Blood Pressure Mean [Right Arm] 92 Blood Pressure Source [Right Arm] Automatic Cuff 02 Sat by Pulse Oximetry 100 Oxygen Delivery Method Room Air - Lab Data Lab results reviewed: Yes: I reviewed the patient's lab results. [facility] [place] HPI - General Stated complaint: sore throat Time Seen by Provider: 05/17/21 13:30 Mode of Arrival: Ambulatory Source of Information: Patient Limitations: No Limitations Description of Symptoms (Recalled from Triage Doc. by RN): pt c/o sore throat. she was exposed to strep positive cousin. HEENT Symptoms (Recalled from RN notes): Yes (sore throat) Resp Symptoms (Recalled from RN notes): No Skin Symptoms (Recalled from RN notes): No MS Symptoms (Recalled from RN notes): No Functional Status (Recalled from RN notes): na - History of Present Illness Provider Complaint: Patient states that she was recently around someone that tested positive for strep throat States that she has been having sore throat and feeling scratchy in her throat and hurts when she swallows States that today it was feeling worse and daughter was having similar symptoms so she brought her in - Related Data Home Medications Medication Instructions Recorded Confirmed ARIPiprazole [Aripiprazole] 5 mg PO QHS 03/14/21 04/30/21 buPROPion HCL [Wellbutrin XL] 300 mg PO DAILY 03/14/21 04/30/21 Levocetirizine Dihydrochloride 5 mg PO DAILY 04/30/21 04/30/21 [Xyzal] Montelukast Sodium [Singulair 10mg 10 mg PO HS 04/30/21 04/30/21 tablet] Previous Rx's Medication Instructions Recorded linaclotide 145 mcg capsule 145 mcg PO DAILY #30 cap 12/13/20 methylPREDNISolone [Medrol 4mg 4 mg PO DIRECTED #21 tab 04/30/21 tab] Amoxicillin [Amoxicillin 500mg 500 mg PO TID #30 cap 05/17/21 Cap] Allergies Allergy/AdvReac Type Severity Reaction Status Date / Time Sulfa (Sulfonamide Allergy Unknown R/T Verified 05/17/21 13:13 Antibiotics) AUTOIMMUNE [SULFA (SULFONAMIDE DISEASE ANTIBIOTICS)] guaifenesin [From Mucinex] Gaurang
[2021-05-17 13:33] VITALS: BP 119/82; PULSE 78; RESP 16; TEMP 36.6
[2021-05-17 13:41] LABS: UTC Strep Screen (Rapid) Positive (Negative)
== END 2021-05-17 13:45 | disposition home or self-care (01) ==
PROVIDERS: Emergency Provider Nurse Practitioner; PCP Emergency Medicine
DX: J02.0 Streptococcal pharyngitis (principal); I10 Essential (primary) hypertension; Z88.2 Allergy status to sulfonamides
CPT/HCPCS: 87880; 99202; G0463

== ENCOUNTER 2021-06-07 20:05 | Emergency (ER) | payer BC, SELFPAY ==
[2021-06-07 20:06] VITALS: BP 133/77; PULSE 102; RESP 19; TEMP 36.6; O2SAT 98; BMI 30.7
--- NOTE | 2021-06-07 21:17 | HMH.EDUTC ---
[facility] [place] Clinical Impression: Viral syndrome Pharyngitis Qualifiers: Pharyngitis/tonsillitis etiology: unspecified etiology Qualified Code(s): J02.9 - Acute pharyngitis, unspecified Disposition: Home, Self-Care Condition on Discharge: Good Instructions: DI for Viral Syndrome Additional Instructions: Drink plenty of fluids. Take tylenol or ibuprofen for pain or fever. Take the medications as directed. Follow up with your regular doctor. GO TO THE ER FOR ANY WORSENING SYMPTOMS Prescriptions: Brompheniramine/Pseudoephed/Dm [Bromfed Dm Cough Syrup] 5 ml PO Q6HP PRN #240 syrup PRN Reason: Cough Transmission Status: Received by [facility] Ondansetron [Zofran 4mg ODT] 4 mg PO Q8HP PRN #12 tab.rapdis PRN Reason: Nausea Transmission Status: Received by [id number] Referrals: Manish Hilton MD [Primary Care Provider] - Forms: Work/School Release Time of Disposition: 21:24 Medical Decision Making - Medical Records Medical records reviewed: No: I reviewed the patient's medical records. - Gregorio Inquiry Pt receiving controlled substance: No Vital Signs: 06/07/21 20:06 06/07/21 21:30 Temperature 97.9 F 97.9 F Temperature Source Oral Pulse Rate 102 H Pulse Rate [Left Radial] 102 H Respiratory Rate 19 19 Blood Pressure 133/77 Blood Pressure [Right Arm] 133/77 Blood Pressure Mean [Right Arm] 95 Blood Pressure Source Automatic Cuff Blood Pressure Source [Right Arm] Automatic Cuff Blood Pressure Position Sitting Blood Pressure Position [Right Arm] Sitting 02 Sat by Pulse Oximetry 98 Oxygen Delivery Method Room Air Room Air - Lab Data Lab Results 06/07/21 21:04: Strep Scn Rapid Clinic Negative 06/07/21 21:30: SARS-CoV-2 (PCR) Not detected, Influenza A Untype (PCR) Not detected, Influenza Type B (PCR) Not detected 06/07/21 21:30: Chlamy pneumoniae PCR Not detected, Adenovirus (PCR) Not detected, B. pertussis DNA (PCR) Not detected, Coronavirus OC43 (PCR) Not detected, Coronavirus HKU1 (PCR) Not detected, Coronavirus 229E (PCR) Not detected, Coronavirus NL63 (PCR) Not detected, Human Metapneumovir PCR Not detected, Influenza A (H1) PCR Not detected, Influ A (H1N1/09) PCR Not detected, Influenza A (H3) PCR Not detected, Influenza Type A (PCR) Not detected, Influenza Type B (PCR) Not detected, M. pneumoniae (PCR) Not detected, Parainfluenza 1 (PCR) Not detected, Parainfluenza 2 (PCR) Not detected, Parainfluenza 3 (PCR) Not detected, Parainfluenza 4 (PCR) Not detected, RSV (PCR) Not detected, Entero/Rhino (PCR) Detected A Orders (Tests/Meds): ORDERS Category Date Time Status Strep Screen Confirmation Stat Micro 06/07/21 21:04 Received [facility] [place]PI - General Stated complaint: sore throat,drainage, abd pain Time Seen by Provider: 06/07/21 21:17 Mode of Arrival: Ambulatory Source of Information: Patient Limitations: No Limitations Description of Symptoms (Recalled from Triage Doc. by RN): drainage in throat, stomach cramps and dry throat HEENT Symptoms (Recalled from RN notes): Yes Resp Symptoms (Recalled from RN notes): No Skin Symptoms (Recalled from RN notes): No MS Symptoms (Recalled from RN notes): No Functional Status (Recalled from RN notes): wnl - History of Present Illness Provider Complaint: She states that since last night she has been having a sore throat, nasal drainage, sneezing and she has felt bad. She has been vaccinated against covid. Her son currently has rhinovirus. - Related Data Home Medications Medication Instructions Recorded Confirmed Levocetirizine Dihydrochloride 5 mg PO DAILY 04/30/21 04/30/21 [Xyzal] Montelukast Sodium [Singulair 10mg 10 mg PO HS 04/30/21 04/30/21 tablet] Previous Rx's Medication Instructions Recorded linaclotide 145 mcg capsule 145 mcg PO DAILY #30 cap 12/13/20 methylPREDNISolone [Medrol 4mg 4 mg PO DIRECTED #21 tab 04/30/21 tab] Amoxicillin [Amoxicillin 500mg 50
[2021-06-07 21:24] LABS: UTC Strep Screen (Rapid) Negative (Negative)
[2021-06-07 21:30] VITALS: BP 133/77; PULSE 102; RESP 19; TEMP 36.6; O2SAT 98
[2021-06-07 21:42] LABS: Adenovirus,PCR Not Detected (NotDetected); Bordetella Pertussis Not Detected (NotDetected); Chlamydophila Pneumoniae, PCR Not Detected (NotDetected); Coronavirus 19, PCR Not Detected (NotDetected); Coronavirus 229E Not Detected (NotDetected); Coronavirus NL63 Not Detected (NotDetected); Coronavirus OC43 Not Detected (NotDetected); Coronovirus HKU1,PCR Not Detected (NotDetected); Human Metapneumovirus Not Detected (NotDetected); Influenza A, PCR Not Detected (NotDetected); Influenza AH1, 2009 Not Detected (NotDetected); Influenza AH1, PCR Not Detected (NotDetected); Influenza AH3,PCR Not Detected (NotDetected); Influenza B, PCR Not Detected (NotDetected); Mycoplasma Pneumoniae, PCR Not Detected (NotDetected); Parainfluenza 1, PCR Not Detected (NotDetected); Parainfluenza 2, PCR Not Detected (NotDetected); Parainfluenza 3, PCR Not Detected (NotDetected); Parainfluenza 4, PCR Not Detected (NotDetected); Respiratory Syncytial Virus Not Detected (NotDetected)
[2021-06-08 04:48] LABS: Rhinovirus/Enterovirus Detected (NotDetected)
== END 2021-06-07 21:31 | disposition home or self-care (01) ==
PROVIDERS: Emergency Provider Nurse Practitioner Family; PCP Emergency Medicine
DX: J02.9 Acute pharyngitis, unspecified (principal); B34.8 Other viral infections of unspecified site; I10 Essential (primary) hypertension; F41.8 Other specified anxiety disorders
CPT/HCPCS: 87486; 87581; 87633; 87798; 87880; 99202; G0463; U0003

== ENCOUNTER 2021-08-11 16:22 | Emergency (ER) | payer BC, SELFPAY ==
[2021-08-11 16:30] VITALS: BP 112/67; PULSE 78; RESP 18; TEMP 37; O2SAT 98; BMI 32.3
[2021-08-11 17:04] LABS: Adenovirus,PCR Not Detected (NotDetected); Bordetella Pertussis Not Detected (NotDetected); Chlamydophila Pneumoniae, PCR Not Detected (NotDetected); Coronavirus 229E Not Detected (NotDetected); Coronavirus NL63 Not Detected (NotDetected); Coronavirus OC43 Not Detected (NotDetected); Coronovirus HKU1,PCR Not Detected (NotDetected); Human Metapneumovirus Not Detected (NotDetected); Influenza A, PCR Not Detected (NotDetected); Influenza AH1, 2009 Not Detected (NotDetected); Influenza AH1, PCR Not Detected (NotDetected); Influenza AH3,PCR Not Detected (NotDetected); Influenza B, PCR Not Detected (NotDetected); Mycoplasma Pneumoniae, PCR Not Detected (NotDetected); Parainfluenza 1, PCR Not Detected (NotDetected); Parainfluenza 2, PCR Not Detected (NotDetected); Parainfluenza 3, PCR Not Detected (NotDetected); Parainfluenza 4, PCR Not Detected (NotDetected); Respiratory Syncytial Virus Not Detected (NotDetected); Rhinovirus/Enterovirus Not Detected (NotDetected)
--- NOTE | 2021-08-11 17:30 | HMH.EDUTC ---
[facility] [place] Impression: Bronchitis Upper respiratory infection Qualifiers: URI type: unspecified URI Qualified Code(s): J06.9 - Acute upper respiratory infection, unspecified Allergic rhinitis Qualifiers: Allergic rhinitis trigger: unspecified Allergic rhinitis seasonality: unspecified Qualified Code(s): J30.9 - Allergic rhinitis, unspecified Disposition: Home, Self-Care Condition on Discharge: Good Instructions: DI for Acute Bronchitis, DI for COVID-19 (Suspected or Confirmed ), Preventing the Spread of Coronavirus Discharge Instructions Additional Instructions: Drink plenty of fluids. Take tylenol or ibuprofen for pain or fever. Take the medications as directed. Follow up with your regular doctor. GO TO THE ER FOR ANY WORSENING SYMPTOMS Quarantine until you know the results of your covid-19 test. If it is positive, the health department should call you and give you further instructions about your length of Quarantine and other things. Notify your school or workplace of your results and follow their instructions regarding return to work/school. Prescriptions: Brompheniramine/Pseudoephed/Dm [Bromfed Dm Cough Syrup] 5 ml PO Q6HP PRN #240 ml PRN Reason: Cough Transmission Status: Received by [facility] methylPREDNISolone [Medrol] 4 mg PO DIRECTED 6 Days #21 packet Transmission Status: Received by [facility] Azithromycin [Z-Sergo 250mg Tab*] 250 mg PO UD DOSE PK #6 tab Transmission Status: Received by [facility] Referrals: Manish Hilton MD [Primary Care Provider] - Time of Disposition: 17:38 Medical Decision Making - Medical Records Medical records reviewed: No: I reviewed the patient's medical records. - Gregorio Inquiry Pt receiving controlled substance: No Vital Signs: 08/11/21 16:30 08/11/21 17:39 Temperature 98.6 F 98.6 F Temperature Source Oral Pulse Rate 78 Pulse Rate [Right Brachial] 78 Respiratory Rate 18 18 Blood Pressure 112/67 Blood Pressure [Right Arm] 112/67 Blood Pressure Mean [Right Arm] 82 Blood Pressure Source [Right Arm] Automatic Cuff Blood Pressure Position [Right Arm] Sitting 02 Sat by Pulse Oximetry 98 Oxygen Delivery Method Room Air - Lab Data Lab results reviewed: Yes: I reviewed the patient's lab results. Lab Results 08/11/21 16:46: Chlamy pneumoniae PCR Not detected, Adenovirus (PCR) Not detected, B. pertussis DNA (PCR) Not detected, Coronavirus OC43 (PCR) Not detected, Coronavirus HKU1 (PCR) Not detected, Coronavirus 229E (PCR) Not detected, SARS-CoV-2 (PCR) Detected A, Coronavirus NL63 (PCR) Not detected, Human Metapneumovir PCR Not detected, Influenza A (H1) PCR Not detected, Influ A (H1N1/09) PCR Not detected, Influenza A (H3) PCR Not detected, Influenza Type A (PCR) Not detected, Influenza Type B (PCR) Not detected, M. pneumoniae (PCR) Not detected, Parainfluenza 1 (PCR) Not detected, Parainfluenza 2 (PCR) Not detected, Parainfluenza 3 (PCR) Not detected, Parainfluenza 4 (PCR) Not detected, RSV (PCR) Not detected, Entero/Rhino (PCR) Not detected [facility] [place] - General Stated complaint: cough,congestion Time Seen by Provider: 08/11/21 17:30 Mode of Arrival: Ambulatory Source of Information: Patient Limitations: No Limitations Description of Symptoms (Recalled from Triage Doc. by RN): PATIENT C/O SNEEZING, COUGH, CONGESTION, AND WATERY EYES THAT STARTED YESTERDAY. HEENT Symptoms (Recalled from RN notes): Yes Resp Symptoms (Recalled from RN notes): Yes Skin Symptoms (Recalled from RN notes): No MS Symptoms (Recalled from RN notes): No Functional Status (Recalled from RN notes): WNL - History of Present Illness Provider Complaint: She states that for the past 2 days she has had worsening sinus and chest congestion. She has been sneezing a lot. And, she has a productive cough. She has been vaccinated against covid-19. She denies any fever/chills/body aches. She states that she normally
[2021-08-11 17:39] VITALS: BP 112/67; PULSE 78; RESP 18; TEMP 37; O2SAT 98
[2021-08-11 18:28] LABS: Coronavirus 19, PCR Detected (NotDetected)
== END 2021-08-11 17:43 | disposition home or self-care (01) ==
PROVIDERS: Emergency Provider Nurse Practitioner Family; PCP Emergency Medicine
DX: J06.9 Acute upper respiratory infection, unspecified (principal); J30.9 Allergic rhinitis, unspecified; U07.1 COVID-19
CPT/HCPCS: 87581; 87632; 87798; 99202; C9803; G0463; U0003; U0005

== ENCOUNTER 2021-11-19 09:32 | Emergency (ER) | payer BC, SELFPAY ==
[2021-11-19 11:11] VITALS: BP 0/0; PULSE 0; RESP 0; TEMP -17.7; TEMP 0
== END 2021-11-19 11:12 | disposition left against medical advice (07) ==
LOC: UTC 09:50
PROVIDERS: Emergency Provider Nurse Practitioner Family; PCP Emergency Medicine
DX: Z53.21 Procedure and treatment not carried out due to patient leaving prior to being seen by health care provider (principal)

== ENCOUNTER → 2021-11-22 20:24 | Outpatient (CLI) | payer BC, SELFPAY | PROVIDERS: Visit Provider Nurse Practitioner Family | DX: Z20.822 Contact with and (suspected) exposure to COVID-19 (principal) | CPT/HCPCS: C9803; U0003; U0005 ==

== ENCOUNTER 2022-01-22 09:31 | Emergency (ER) | payer BC, SELFPAY ==
[2022-01-22 10:28] VITALS: BP 111/62; PULSE 82; RESP 17; TEMP 36.6; O2SAT 96; BMI 30.3
[2022-01-22 10:40] LABS: UTC Strep Screen (Rapid) Negative (Negative)
--- NOTE | 2022-01-22 10:40 | HMH.EDUTC ---
[facility] [place] Disposition Clinical Impression: Conjunctivitis Qualifiers: Conjunctivitis type: acute Acute conjunctivitis type: unspecified Laterality: bilateral Qualified Code(s): H10.33 - Unspecified acute conjunctivitis, bilateral Disposition: Home, Self-Care Condition on Discharge: Good Instructions: How to Instill Eye Drops, DI for Conjunctivitis Additional Instructions: Use the eye drops as directed. Strict hand washing in the house hold, because conjunctivitis is very contagious. Follow up with your regular doctor. GO TO THE ER FOR ANY WORSENING SYMPTOMS OR CONCERNS Prescriptions: Moxifloxacin HCl [Vigamox] 1 drp EYE-BOTH TID 7 Days #3 ml Transmission Status: Received by [id number] Referrals: Manish Hilton MD [Primary Care Provider] - Time of Disposition: 11:03 Medical Decision Making - Medical Records Medical records reviewed: No: I reviewed the patient's medical records. - Gregorio Inquiry Pt receiving controlled substance: No Vital Signs: 01/22/22 10:28 01/22/22 11:11 Temperature 97.9 F 97.9 F Temperature Source Oral Oral Pulse Rate 80 Pulse Rate [Left Radial] 82 Respiratory Rate 17 17 Blood Pressure 112/67 Blood Pressure [Right Arm] 111/62 Blood Pressure Mean [Right Arm] 78 02 Sat by Pulse Oximetry 96 Oxygen Delivery Method Room Air Room Air - Lab Data Lab Results 01/22/22 10:28: Strep [facility] Negative Orders (Tests/Meds): ORDERS Category Date Time Status Strep Screen Confirmation Stat Micro 01/22/22 10:28 Received [facility] [place] HPI - General Stated complaint: eye crusted over Time Seen by Provider: 01/22/22 10:40 Mode of Arrival: Ambulatory Source of Information: Patient Limitations: No Limitations Description of Symptoms (Recalled from Triage Doc. by RN): pt to [facility] c/o left eye redness, irritation and drainage sice this morning HEENT Symptoms (Recalled from RN notes): Yes Resp Symptoms (Recalled from RN notes): No Skin Symptoms (Recalled from RN notes): No MS Symptoms (Recalled from RN notes): No Functional Status (Recalled from RN notes): na - History of Present Illness Provider Complaint: She states that she woke up with morning with her eye almost crusted together. Her son had pink eye last week and her daughter has it now. She denies any actual eye pain or vision changes. She denies any injury or foreign body. - Related Data Previous Rx's Medication Instructions Recorded linaclotide 145 mcg capsule 145 mcg PO DAILY #90 cap 09/18/21 famotidine 40 mg tablet 40 mg PO DAILY #90 tab 10/25/21 aripiprazole 5 mg tablet 5 mg PO QHS #30 tab 11/14/21 bupropion HCl 300 mg 24 hr tablet, 300 mg PO DAILY #30 tab 11/14/21 extended release levocetirizine 5 mg tablet 5 mg PO DAILY #30 tab 12/08/21 montelukast 10 mg tablet 10 mg PO HS #30 tab 12/08/21 nitrofurantoin 100 mg PO BID #20 cap 01/10/22 monohydrate/macrocrystals 100 mg capsule azithromycin 250 mg tablet 250 mg PO QDAY 5 Days #6 tab 01/21/22 Moxifloxacin HCl [Vigamox] 1 drp EYE-BOTH TID 7 Days #3 ml 01/22/22 Allergies Allergy/AdvReac Type Severity Reaction Status Date / Time Sulfa (Sulfonamide Allergy Unknown R/T Verified 11/22/21 13:18 Antibiotics) AUTOIMMUNE [SULFA (SULFONAMIDE DISEASE ANTIBIOTICS)] guaifenesin [From Mucinex] Allergy Verified 11/22/21 13:18 - Worker's Comp Is this a Worker's Comp case?: No [facility] History - Hepatitis A Screen Drug use history?: No High risk sexual behaviors?: No History of sexually transmitted infection?: No Currently employed?: No Childcare worker?: No Do you have indoor plumbing?: Yes Do you have electricity?: Yes Attestation statement:: This patient has been screened for Hepatitis A risk factors. I have reviewed the patient's past medical history: Yes Medical History: Reports:: Hypertension Denies:: Anxiety, Cancer, Depression, Diabetes Mellitus Type 1, Diabetes Mellitus Type 2, Hyperlipidemia, Internal Pace
[2022-01-22 11:11] VITALS: BP 112/67; PULSE 80; RESP 17; TEMP 36.6; O2SAT 97
== END 2022-01-22 11:12 | disposition home or self-care (01) ==
PROVIDERS: Emergency Provider Nurse Practitioner Family; PCP Emergency Medicine
DX: H10.33 Unspecified acute conjunctivitis, bilateral (principal)
CPT/HCPCS: 87880; 99212; G0463

== ENCOUNTER → 2022-04-25 09:16 | Outpatient (CLI) | payer BC, SELFPAY ==
[2022-04-24 20:27] LABS: Alanine Aminotransferase 19 U/L (12-78); Albumin Level 4.3 g/dl (3.5-5.0); Albumin/Globulin Ratio 1.5 (1.1-1.8); Alkaline Phosphatase 85 U/L (38-126); Anion Gap 11.9 mEq/L (5-15); Aspartate Amino Transferase 29 U/L (14-36); Blood Urea Nitrogen 8 mg/dl (7-17); Calcium 9.1 mg/dl (8.4-10.2); Carbon Dioxide 24 mmol/L (22.0-30.0); Chloride 106 mmol/L (98-107); Chol/HDL Ratio 2.5 (1-3.5); Cholesterol 186 mg/dl (140-200); Estimated Glomerular Filt Rate 98 ml/min (>60); GFR (African American) 118 ML/MIN (>60); Globulin 2.9 g/dL (1.3-3.2); Glucose 90 mg/dl (74-100); HDL Cholesterol 74 mg/dl (40-60); Potassium 3.9 mmoL/L (3.5-5.1); Sodium 138 mmol/L (136-145); Total Protein,Serum 7.2 g/dl (6.3-8.2); Triglycerides 86 mg/dl (30-150); VLDL Cholesterol 17 mg/dL (0-40)
[2022-04-24 20:31] LABS: Bilirubin,Total 0.1 mg/dl (0.2-1.3)
[2022-04-24 20:36] LABS: Basophils # 0.1 K/mm3 (0-0.2); Basophils % 0.8 % (0.1-2.0); Eosinophils # 0.3 K/mm3 (0.0-0.4); Eosinophils % 3.5 % (0.1-12.0); Hematocrit 42.8 % (37.0-47.0); Hemoglobin 14.5 g/dL (12.2-16.2); Lymphocytes # 2.1 K/mm3 (0.7-4.5); Lymphocytes % 21.4 % (10-50); Mean Corpuscular Hemoglobin 30.8 pg (27.0-31.2); Mean Corpuscular Volume 90.8 fl (81-99); Mean Platelet Volume 9.7 fl (7.4-10.4); Monocytes # 0.7 K/mm3 (0.1-1.0); Monocytes % 6.8 % (1.7-9.3); Neutrophils # 6.5 K/mm3 (1.8-7.8); Neutrophils % 67.6 % (37.0-80.0); Platelet Count 377 K/mm3 (142-424); Red Blood Count 4.71 M/mm3 (4.20-5.40); Red Cell Distribution Width 13.5 % (11.5-17.5); White Blood Count 9.7 K/mm3 (4.8-10.8)
[2022-04-24 20:37] LABS: Direct LDL Cholesterol 74.43 mg/dL (100-129)
[2022-04-24 20:44] LABS: 25-OH Vitamin D, Total 27.7 ng/mL (30-100); T4 (Thyroxine) 10.3 ug/dl (5.53-11.0)
[2022-04-24 20:58] LABS: Thyroid Stimulating Hormone 0.75 uIU/mL (0.465-4.68)
== END ==
PROVIDERS: PCP Nurse Practitioner Family; Visit Provider Nurse Practitioner Family
DX: E66.9 Obesity, unspecified (principal); Z68.32 Body mass index [BMI] 32.0-32.9, adult; E55.9 Vitamin D deficiency, unspecified
CPT/HCPCS: 80053; 80061; 82306; 84436; 84443; 85025

== ENCOUNTER 2022-07-12 08:08 | Emergency (ER) | payer BC, SELFPAY ==
[2022-07-12 08:10] VITALS: BP 131/76; PULSE 72; RESP 21; TEMP 36.8; O2SAT 100; BMI 26.4
--- NOTE | 2022-07-12 08:35 | EXP.UTC ---
Discharge Plan Disposition Patient Disposition: Home, Self-Care Condition: Good Prescriptions Prescriptions: New azithromycin [Zithromax Z-Sergo] 250 mg tablet 250 mg PO DAILY 6 Days Qty: 6 0RF Rx Instructions: start on day 2 of therapy methylprednisolone [Medrol (Sergo)] 4 mg tablets,dose pack See Rx Instructions .Route .COMPLEX 6 Days Qty: 21 0RF Rx Instructions: taper pack; benzonatate 100 mg capsule 100 mg PO TID PRN (Reason: cough) Qty: 30 0RF No Action linaclotide 145 mcg capsule 145 mcg PO DAILY Qty: 90 3RF aripiprazole 5 mg tablet 5 mg PO QHS Qty: 30 1RF bupropion HCl 300 mg tablet extended release 24 hr 300 mg PO DAILY Qty: 30 1RF montelukast 10 mg tablet 10 mg PO HS Qty: 30 2RF ondansetron HCl 4 mg tablet 4 mg PO TID PRN (Reason: nausea and vomiting) 5 Days Qty: 14 0RF levocetirizine 5 mg tablet See Rx Instructions .ROUTE .COMPLEX Qty: 30 0RF Dose Instruction: TAKE 1 TABLET BY MOUTH ONCE DAILY FOR ALLERGY SYMPTOMS Rx Instructions: TAKE 1 TABLET BY MOUTH ONCE DAILY FOR ALLERGY SYMPTOMS famotidine 40 mg tablet See Rx Instructions .ROUTE .COMPLEX Qty: 30 0RF Dose Instruction: Take 1 tablet by mouth once daily Rx Instructions: Take 1 tablet by mouth once daily cholecalciferol (vitamin D3) 50 mcg (2,000 unit) capsule 50 mcg PO DAILY Qty: 30 4RF cholecalciferol (vitamin D3) 1,250 mcg (50,000 unit) tablet 1,250 mcg PO WEEKLY Qty: 7 2RF phentermine [Adipex-P] 37.5 mg tablet 37.5 mg PO DAILY 30 Days Qty: 30 0RF Rx Instructions: must administer 30 minutes before or 1-2 hours after breakfast Referrals Follow up/Referrals: Manish Hiltno MD [Primary Care Provider] - See instructions Activity Restrictions/Add. Instructions Additional Instructions/Restrictions: *Monitor Temp, Over the counter Motrin or Tylenol as directed/as needed Tylenol every 4 hours and Motrin every 6 hours (as long as your family doctor has told you that you can take it) for fever or pain. and straight to ER if unable to lower temp less than 101.0 after medication given *Warm salt water gargles may help to soothe the throat *Throat Lozenges? *Warm fluids like tea with honey may help to soothe the throat? *Sleep elevated *Humidifier/Vaporizer *Flonase 2 sprays in each nostril daily but be aware that it may take 2-3 days before you notice improvement *Bromfed may cause drowsiness. Know how it effects you (your child) before driving, caring for small child, or sending your child to school. Not other antihistamines/allergy medications while taking bromfed Your throat swab was sent for culture. Those results are typically sent to your primary care. Be sure to follow up in 2-3 days with your family doctor/primary care physician if no improvement so they can review those result and treat if necessary. If you don?t have a primary care doctor, I recommend you get one but in the mean time, you will have to return to a walk in clinic Follow up IMMEDIATELY for new or worsening symptoms or no Noticeable improvement over the next 48-72 hours. 911 for difficulty breathing or swallowing Clinical Impressions Clinical Impression: Sinusitis Discharge ED Provider: Gretel Mccollum [facility] [place] HPI General Stated complaint: cough, congestion Mode of Arrival: Ambulatory Source of Information: Patient Limitations: No Limitations Time Seen by Provider: 07/12/22 08:35 Description of Symptoms (Recalled from Triage Doc. by RN): PATIENT C/O COUGH, NASAL CONGESTION, AND DRAINAGE SINCE SATURDAY HE Symptoms (Recalled from RN notes): Yes Resp Symptoms (Recalled from RN notes): Yes Skin Symptoms (Recalled from RN notes): No MS Symptoms (Recalled from RN notes): No Functional Status (Recalled from RN notes): WNL History of Present Illness Provider Complaint: Patient states that she has been having sinus congestion and pressure along with cou
[2022-07-12 08:50] VITALS: BP 131/76; PULSE 72; RESP 21; TEMP 36.8; O2SAT 100
== END 2022-07-12 08:52 | disposition home or self-care (01) ==
PROVIDERS: Emergency Provider Nurse Practitioner; PCP Emergency Medicine
DX: J32.9 Chronic sinusitis, unspecified (principal); Z79.899 Other long term (current) drug therapy
CPT/HCPCS: 99212; G0463

== ENCOUNTER 2022-08-22 08:20 | Emergency (ER) | payer BC, SELFPAY ==
[2022-08-22 08:21] VITALS: BP 113/77; PULSE 71; RESP 19; TEMP 37.1; O2SAT 98; BMI 25.8
--- NOTE | 2022-08-22 08:45 | EXP.UTC ---
Discharge Plan Disposition Patient Disposition: Home, Self-Care Condition: Good Prescriptions Prescriptions: New methylprednisolone [Medrol (Sergo)] 4 mg tablets,dose pack See Rx Instructions .Route .COMPLEX 6 Days Qty: 21 0RF Rx Instructions: taper pack; cefdinir 300 mg capsule 300 mg PO BID 7 Days Qty: 14 0RF No Action linaclotide 145 mcg capsule 145 mcg PO DAILY Qty: 90 3RF aripiprazole 5 mg tablet 5 mg PO QHS Qty: 30 1RF bupropion HCl 300 mg tablet extended release 24 hr 300 mg PO DAILY Qty: 30 1RF montelukast 10 mg tablet 10 mg PO HS Qty: 30 2RF ondansetron HCl 4 mg tablet 4 mg PO TID PRN (Reason: nausea and vomiting) 5 Days Qty: 14 0RF levocetirizine 5 mg tablet See Rx Instructions .ROUTE .COMPLEX Qty: 30 0RF Dose Instruction: TAKE 1 TABLET BY MOUTH ONCE DAILY FOR ALLERGY SYMPTOMS Rx Instructions: TAKE 1 TABLET BY MOUTH ONCE DAILY FOR ALLERGY SYMPTOMS famotidine 40 mg tablet See Rx Instructions .ROUTE .COMPLEX Qty: 30 0RF Dose Instruction: Take 1 tablet by mouth once daily Rx Instructions: Take 1 tablet by mouth once daily cholecalciferol (vitamin D3) 50 mcg (2,000 unit) capsule 50 mcg PO DAILY Qty: 30 4RF cholecalciferol (vitamin D3) 1,250 mcg (50,000 unit) tablet 1,250 mcg PO WEEKLY Qty: 7 2RF phentermine [Adipex-P] 37.5 mg tablet 37.5 mg PO DAILY 30 Days Qty: 30 0RF Rx Instructions: must administer 30 minutes before or 1-2 hours after breakfast azithromycin [Zithromax Z-Sergo] 250 mg tablet 250 mg PO DAILY 6 Days Qty: 6 0RF Rx Instructions: start on day 2 of therapy methylprednisolone [Medrol (Sergo)] 4 mg tablets,dose pack See Rx Instructions .Route .COMPLEX 6 Days Qty: 21 0RF Rx Instructions: taper pack; benzonatate 100 mg capsule 100 mg PO TID PRN (Reason: cough) Qty: 30 0RF Referrals Follow up/Referrals: Manish Hilton MD [Primary Care Provider] - See instructions Activity Restrictions/Add. Instructions Additional Instructions/Restrictions: *Monitor Temp, Over the counter Motrin or Tylenol as directed/as needed Tylenol every 4 hours and Motrin every 6 hours (as long as your family doctor has told you that you can take it) for fever or pain. and straight to ER if unable to lower temp less than 101.0 after medication given *Warm salt water gargles may help to soothe the throat *Throat Lozenges? *Warm fluids like tea with honey may help to soothe the throat? *Sleep elevated *Humidifier/Vaporizer *Flonase 2 sprays in each nostril daily but be aware that it may take 2-3 days before you notice improvement *Bromfed may cause drowsiness. Know how it effects you (your child) before driving, caring for small child, or sending your child to school. Not other antihistamines/allergy medications while taking bromfed Your throat swab was sent for culture. Those results are typically sent to your primary care. Be sure to follow up in 2-3 days with your family doctor/primary care physician if no improvement so they can review those result and treat if necessary. If you don?t have a primary care doctor, I recommend you get one but in the mean time, you will have to return to a walk in clinic Follow up IMMEDIATELY for new or worsening symptoms or no Noticeable improvement over the next 48-72 hours. 911 for difficulty breathing or swallowing Clinical Impressions Clinical Impression: Bronchitis, Sinusitis Stand Alone Forms Stand Alone Forms: Work/School Release Instructions Patient Instructions: Sinusitis, Acute Bronchitis, DI for Sinusitis Discharge ED Provider: Gretel Mccollum [facility] [place] General Stated complaint: cough, congestion, sore throat Mode of Arrival: Ambulatory Limitations: No Limitations Time Seen by Provider: 08/22/22 08:48 Description of Symptoms (Recalled from Triage Doc. by RN): COUGH, SORE THROAT, CONGESTION AND DRAINAGE SINCE LAST NI
[2022-08-22 08:47] LABS: UTC Strep Screen (Rapid) Negative (Negative)
[2022-08-22 09:06] VITALS: BP 113/77; PULSE 71; RESP 18; TEMP 37.1; O2SAT 98
== END 2022-08-22 09:08 | disposition home or self-care (01) ==
PROVIDERS: Emergency Provider Nurse Practitioner; PCP Emergency Medicine
DX: J40 Bronchitis, not specified as acute or chronic (principal); J32.9 Chronic sinusitis, unspecified
CPT/HCPCS: 87880; 99212; G0463

== ENCOUNTER → 2023-01-02 09:47 | Outpatient (CLI) | payer BC, SELFPAY ==
--- NOTE | 2023-01-02 09:48 | US_ITS ---
FINAL REPORT TECHNIQUE: Sonographic images of the pelvis were obtained transvaginally. CLINICAL HISTORY: menorrhagia FINDINGS: The uterus is anteverted and anteflexed. It measures 8.1 x 5.2 x 4.0 cm. There is a small amount of fluid within the endometrial cavity. The endometrial stripe measures 6 mm which is normal. The myometrium is homogeneous. The cervix is within normal limits. The right ovary measures 3.0 x 2.3 x 1.8 cm. There is an irregular follicle in the right ovary which is likely an involuting corpus luteum cyst. The left ovary measures 3.1 x 1.9 x 1.7 cm. It is normal in appearance. Color imaging to the ovaries is within normal limits. IMPRESSION: 1. Small amount of fluid within the endometrial cavity which can be normal in a premenopausal patient. 2. Probable involuting corpus luteal cyst in the right ovary, no follow-up needed. Reviewed, Interpreted and Dictated by Leila Nuno MD Transcribed by Michelle Aguilar Authenticated and . [facility]
== END ==
PROVIDERS: PCP Emergency Medicine; Visit Provider Nurse Practitioner Obstetrics & Gynecology
DX: N92.0 Excessive and frequent menstruation with regular cycle (principal)
CPT/HCPCS: 76830

== ENCOUNTER 2023-01-05 04:19 | Emergency (ER) | payer BC, SELFPAY ==
[2023-01-05 04:24] VITALS: BP 129/83; PULSE 117; RESP 14; TEMP 37.2; O2SAT 98; BMI 27.4
[2023-01-05 04:33] LABS: Coronavirus 19, PCR Not Detected (NotDetected); Influenza A, PCR Not Detected (NotDetected); Influenza B, PCR Not Detected (NotDetected)
[2023-01-05 04:46] LABS: Strep Scrn Group A (Rapid) Positive (Negative)
--- NOTE | 2023-01-05 04:53 | PC.NURSE ---
call placed to night time pharmacy for pcn dosing
--- NOTE | 2023-01-05 04:56 | PC.NURSE ---
call received from overnight pharmacist telecommunication operator. she states she will place order for bicillin for strep.
--- NOTE | 2023-01-05 04:57 | HMH.EDURI ---
Discharge Plan Disposition Patient Disposition: Home, Self-Care Chief Complaint: Upper Respiratory Infection Prescriptions Prescriptions: No Action aripiprazole 5 mg tablet 5 mg PO QHS Qty: 30 1RF bupropion HCl 300 mg tablet extended release 24 hr 300 mg PO DAILY Qty: 30 1RF montelukast 10 mg tablet 10 mg PO HS Qty: 30 2RF ondansetron HCl 4 mg tablet 4 mg PO TID PRN (Reason: nausea and vomiting) 5 Days Qty: 14 0RF levocetirizine 5 mg tablet See Rx Instructions .ROUTE .COMPLEX Qty: 30 0RF Dose Instruction: TAKE 1 TABLET BY MOUTH ONCE DAILY FOR ALLERGY SYMPTOMS Rx Instructions: TAKE 1 TABLET BY MOUTH ONCE DAILY FOR ALLERGY SYMPTOMS cholecalciferol (vitamin D3) 50 mcg (2,000 unit) capsule 50 mcg PO DAILY Qty: 30 4RF cholecalciferol (vitamin D3) 1,250 mcg (50,000 unit) tablet 1,250 mcg PO WEEKLY Qty: 7 2RF benzonatate 100 mg capsule 100 mg PO TID PRN (Reason: cough) Qty: 30 0RF Referrals Follow up/Referrals: Manish Hilton MD [Primary Care Provider] - See instructions Clinical Impressions Clinical Impression: Strep throat Instructions Patient Instructions: DI for Strep Throat Discharge ED Provider: Lida (ED)Manish URI/Sore Throat HPI General Chief Complaint: Upper Respiratory Infection Stated Complaint: sore throat, ear pain Time Seen by Provider: 01/05/23 04:57 Mode of Arrival: Family Vehicle Source of Information: Patient and Medical Record Limitations: No Limitations Description of Symptoms (Recalled from ER Triage Doc. by RN): 32 year old female describes having had drainage from her sinuses that has created bilateral ear pain & sore throat; onset: 20 minutes ago. Afebrile to the best of her knowledge and during presentation. PMH: hay fever Current Meds include an allergy medicine every day . Allergic to mucinex for sure. Denies smoking cigarettes/drinking etoh/recreational drug use. Denies rash. Denies dyspnea. Denies n/v/d. No other symptoms that she can describe. Her daughter had strep 2 weeks ago. History of Present Illness HPI Narrative: sore throat and ear pain over the last day no rash Complaint: sore throat Onset (ago): day(s) Duration: intermittent Severity: moderate Able to tolerate fluids by mouth: Yes Associated symptoms: denies other symptoms Related Data Previous Rx's Medication Instructions Recorded aripiprazole 5 mg tablet 5 mg PO QHS Depression #30 tabs 11/14/21 bupropion HCl 300 mg 24 hr tablet, 300 mg PO DAILY Depression #30 tabs 11/14/21 extended release montelukast 10 mg tablet 10 mg PO HS Allergy symptoms #30 12/08/21 tabs ondansetron HCl 4 mg tablet 4 mg PO TID PRN nausea and 02/04/22 vomiting 5 days #14 tabs levocetirizine 5 mg tablet See Rx Instructions .Route 02/26/22 .COMPLEX #30 tabs cholecalciferol (vitamin D3) 1,250 1,250 mcg PO WEEKLY #7 tabs 04/30/22 mcg (50,000 unit) tablet cholecalciferol (vitamin D3) 50 50 mcg PO DAILY #30 caps 04/30/22 mcg (2,000 unit) capsule benzonatate 100 mg capsule 100 mg PO TID PRN cough #30 caps 07/12/22 Allergies Allergy/AdvReac Type Severity Reaction Status Date / Time Sulfa (Sulfonamide Allergy Unknown R/T Verified 12/31/22 08:48 Antibiotics) AUTOIMMUNE [SULFA (SULFONAMIDE DISEASE ANTIBIOTICS)] guaifenesin [From Mucinex] Allergy Verified 12/31/22 08:48 [facility] Disclaimer: The information contained in this section may have been updated after the patient was seen, as this information can be updated by other users. Medical History (Updated 01/05/23 @ 05:17 by Manish Hilton (KELLY)MD) BMI 32.0-32.9,adult Depression Urinary tract infection Surgical History (Updated 12/31/22 @ 08:57 by SKIP Gregorio) H/O LEEP Family History Other Anemia Asthma Diabetes Social History Smoking Status: Never smoker second h
[2023-01-05 05:11] VITALS: BP 111/75; PULSE 83; RESP 15; TEMP 37.2; O2SAT 98
== END 2023-01-05 05:22 | disposition home or self-care (01) ==
PROVIDERS: Emergency Provider Emergency Medicine; PCP Emergency Medicine
DX: J06.9 Acute upper respiratory infection, unspecified (principal); H92.09 Otalgia, unspecified ear
CPT/HCPCS: 87430; 96374; 99285; C9803; J0561; U0003; U0005

== ENCOUNTER 2023-01-18 17:12 | Emergency (ER) | payer BC, SELFPAY ==
[2023-01-18 17:15] VITALS: BP 120/78; PULSE 90; RESP 20; TEMP 37.9; O2SAT 98; BMI 29.2
[2023-01-18 17:29] VITALS: BP 120/78; PULSE 90; RESP 20; TEMP 37.9; O2SAT 98
--- NOTE | 2023-01-18 17:33 | EXP.UTC ---
Discharge Plan Disposition Patient Disposition: Home, Self-Care Condition: Good Prescriptions Prescriptions: New azithromycin [Zithromax Z-Sergo] 250 mg tablet See Rx Instructions .ROUTE .COMPLEX 5 Days Qty: 6 0RF Rx Instructions: For 250 mg dose pack: take 500 mg today (day 1), then 250 mg for 4 days (days 2-5) methylprednisolone [Medrol (Sergo)] 4 mg tablets,dose pack See Rx Instructions .Route .COMPLEX 6 Days Qty: 21 0RF Rx Instructions: taper pack; No Action aripiprazole 5 mg tablet 5 mg PO QHS Qty: 30 1RF bupropion HCl 300 mg tablet extended release 24 hr 300 mg PO DAILY Qty: 30 1RF montelukast 10 mg tablet 10 mg PO HS Qty: 30 2RF ondansetron HCl 4 mg tablet 4 mg PO TID PRN (Reason: nausea and vomiting) 5 Days Qty: 14 0RF levocetirizine 5 mg tablet See Rx Instructions .ROUTE .COMPLEX Qty: 30 0RF Dose Instruction: TAKE 1 TABLET BY MOUTH ONCE DAILY FOR ALLERGY SYMPTOMS Rx Instructions: TAKE 1 TABLET BY MOUTH ONCE DAILY FOR ALLERGY SYMPTOMS cholecalciferol (vitamin D3) 50 mcg (2,000 unit) capsule 50 mcg PO DAILY Qty: 30 4RF cholecalciferol (vitamin D3) 1,250 mcg (50,000 unit) tablet 1,250 mcg PO WEEKLY Qty: 7 2RF benzonatate 100 mg capsule 100 mg PO TID PRN (Reason: cough) Qty: 30 0RF Referrals Follow up/Referrals: Manish Hilton MD [Primary Care Provider] - See instructions Activity Restrictions/Add. Instructions Additional Instructions/Restrictions: *Monitor Temp, Over the counter Motrin or Tylenol as directed/as needed Tylenol every 4 hours and Motrin every 6 hours (as long as your family doctor has told you that you can take it) for fever or pain. and straight to ER if unable to lower temp less than 101.0 after medication given *Warm salt water gargles may help to soothe the throat *Throat Lozenges? *Warm fluids like tea with honey may help to soothe the throat? *Sleep elevated *Humidifier/Vaporizer *Flonase 2 sprays in each nostril daily but be aware that it may take 2-3 days before you notice improvement *Bromfed may cause drowsiness. Know how it effects you (your child) before driving, caring for small child, or sending your child to school. Not other antihistamines/allergy medications while taking bromfed Your throat swab was sent for culture. Those results are typically sent to your primary care. Be sure to follow up in 2-3 days with your family doctor/primary care physician if no improvement so they can review those result and treat if necessary. If you don?t have a primary care doctor, I recommend you get one but in the mean time, you will have to return to a walk in clinic Follow up IMMEDIATELY for new or worsening symptoms or no Noticeable improvement over the next 48-72 hours. 911 for difficulty breathing or swallowing Clinical Impressions Clinical Impression: Sinusitis Qualifiers: Sinusitis location: unspecified location Chronicity: unspecified Qualified Code(s): J32.9 - Chronic sinusitis, unspecified Instructions Patient Instructions: Sinusitis, DI for Sinusitis Discharge ED Provider: Gretel Mccollum [facility] General Stated complaint: sore throat, h/a, congestion Mode of Arrival: Ambulatory Source of Information: Patient Limitations: No Limitations Time Seen by Provider: 01/18/23 17:34 Description of Symptoms (Recalled from Triage Doc. by RN): PATIENT C/O COUGH, GREEN MUCOUS, HEADACHE, SINUS DRAINAGE, DRY THROAT AND CONGESTION SINCE SATURDAY HEENT Symptoms (Recalled from RN notes): Yes Resp Symptoms (Recalled from RN notes): No Skin Symptoms (Recalled from RN notes): No MS Symptoms (Recalled from RN notes): No Functional Status (Recalled from RN notes): WNL History of Present Illness Provider Complaint: Patient states she has been having sinus pain and pressure, coughing up green mucous at times, sinus headache on and off and low grade fever that has got worse since Sat today her t
== END 2023-01-18 17:58 | disposition home or self-care (01) ==
PROVIDERS: Emergency Provider Nurse Practitioner; PCP Emergency Medicine
DX: J01.90 Acute sinusitis, unspecified (principal); R50.9 Fever, unspecified
CPT/HCPCS: 99212; 99214; G0463

== ENCOUNTER 2023-02-04 06:05 | Day surgery (SDC) | payer BC, SELFPAY ==
[2023-01-30 13:38] VITALS: BMI 27.4
[2023-02-04] VITALS (11 sets, daily range): BP systolic 95–113; BP diastolic 51–79; PULSE 52–86; RESP 12–18; TEMP 36.2–43; O2SAT 92–100
[2023-02-04 06:36] LABS: Urine Pregnancy, HCG Qual. Negative (Negative)
[2023-02-04 06:50] LABS: Chloride 106 mmol/L (98-107)
[2023-02-04 06:51] LABS: Potassium 3.6 mmoL/L (3.5-5.1); Sodium 138 mmol/L (136-145)
[2023-02-04 06:53] LABS: Alanine Aminotransferase 16 U/L (12-78); Alkaline Phosphatase 62 U/L (38-126); Anion Gap 10.6 mEq/L (5-15); Aspartate Amino Transferase 22 U/L (14-36); Bilirubin,Total 0.4 mg/dl (0.2-1.3); Blood Urea Nitrogen 12 mg/dl (7-17); Carbon Dioxide 25 mmol/L (22.0-30.0); Creatinine Clearance Estimated 113 mL/min (50-200); Estimated Glomerular Filt Rate 84 ml/min (>60); GFR (African American) 101 ML/MIN (>60)
[2023-02-04 06:54] LABS: Albumin Level 4.1 g/dl (3.5-5.0); Albumin/Globulin Ratio 1.4 (1.1-1.8); Calcium 8.5 mg/dl (8.4-10.2); Globulin 2.9 g/dL (1.3-3.2); Glucose 100 mg/dl (74-100)
[2023-02-04 07:03] LABS: Basophils # 0.1 K/mm3 (0-0.2); Eosinophils # 0.4 K/mm3 (0.0-0.4); Monocytes # 0.6 K/mm3 (0.1-1.0); Red Cell Distribution Width 13.6 % (11.5-17.5)
[2023-02-04 07:18] LABS: Basophils % 0.8 % (0.1-2.0); Eosinophils % 5.5 % (0.1-12.0); Hematocrit 36.8 % (37.0-47.0); Hemoglobin 11.9 g/dL (12.2-16.2); Lymphocytes # 2.4 K/mm3 (0.7-4.5); Lymphocytes % 34.3 % (10-50); Mean Corpuscular HGB Conc 32.4 g/dL (31.8-35.4); Mean Corpuscular Hemoglobin 29.4 pg (27.0-31.2); Mean Corpuscular Volume 90.7 fl (81-99); Mean Platelet Volume 8.3 fl (7.4-10.4); Neutrophils # 3.7 K/mm3 (1.8-7.8); Neutrophils % 51.4 % (37.0-80.0); Platelet Count 295 K/mm3 (142-424); Red Blood Count 4.06 M/mm3 (4.20-5.40); White Blood Count 7.1 K/mm3 (4.8-10.8)
--- NOTE | 2023-02-04 07:39 | P.PN_ITS ---
[facility] Disclaimer: The information contained in this section may have been updated after the patient was seen, as this information can be updated by other users. Medical History BMI 32.0-32.9,adult Depression Urinary tract infection Surgical History H/O LEEP Family History Other Anemia Asthma Diabetes Family history of cancer Social History Smoking Status: Never smoker second hand exposure: No alcohol intake: never substance use type: denies use current occupational status: other Travel in the last 8 weeks: None household members: spouse and children housing: house number of children: 2 current occupation: [employer] current occupational exposures/hazards: No caffeine: Yes [facility] Anesthesia Checklist Patient Identification Patient Identification: Verbal (Name & ) Structural Data Admitted From: Home Planned Operative Procedure/s: hy,d/c,berta Consent for Planned Operative Procedure(s) Verified: Yes NPO Status Verified Time NPO: 00:00 Additional verifications Anesthesia Reactions: No Hx Blood Transfusions: No Blood Transfusion Reaction: No Airway Assessment C-Spine Mobility Assessed: Yes TMJ Mobility Assessed: Yes Dentition: Good Dentition Neurological Assessment Level of Consciousness: Awake, Alert and Appropriate Anesthesia Plan Anesthesia Risk discussed: Yes Anesthesia Plan: Verified ASA Class: II Anesthesia Type: General
--- NOTE | 2023-02-04 07:55 | P.OP_ITS ---
Date of procedure: 02/04/23 Pre-op Diagnosis:: Menorrhagia Post-op Diagnosis:: Menorrhagia Procedure performed:: Hysteroscopy, dilation and curettage, NovaSure ablation Surgeon:: Aristeo Kapoor MD COLOR GRINDER:: Gabriel Mejia Anesthesia: LMA Estimated blood loss (mL): 50 Clinical Note:: She is a 32-year-old 2 para 2 lady who complains of extremely heavy periods. After having discussed the risk and benefits she elected to have a hysteroscopy, D&C and NovaSure ablation. Operative findings:: She had a normal-appearing endometrial cavity. She has had a previous LEEP procedure. The endometrium was lush and it was somewhat erythematous but otherwise normal. The tubal ostia were seen and appeared normal. Operative note:: She was taken to the operating room where LMA anesthesia was found be adequate. She was prepped and draped in the normal sterile fashion in the lithotomy position. A weighted speculum was placed in the vagina and the anterior lip of the cervix was grasped with a tenaculum. The cervix was then dilated to approximately 6 mm. I then inserted a hysteroscope into the uterine cavity and the findings were as previously dictated. I then performed a gentle curettage with a medium curette. I then sounded the uterus and determine the length of the uterus. I then inserted the NovaSure device and determine the width of the endometrial cavity. The width of the cavity was 4.0 cm and the length was 5.5 cm. this was placed into the NovaSure device. I then ran the device through its program. I further inspected the endometrial cavity and was found to be completely charred. I then injected 30 cc of 0.5% ropivacaine at the 3:00, 5:00, 7:00, and 9:00 positions of the cervix. She tolerated procedure well and was taken to the recovery room in excellent condition. All sponge and instrument counts were correct. The estimated blood loss was less than 50 cc. Condition: stable Disposition: PACU Specimens:: Endometrial curettings Complications:: None
--- NOTE | 2023-02-04 07:58 | P.PNANES_ITS ---
[facility] Anesthesia Record Part I Anesthesia Record I Intake, IV Amount: 800 Estimated blood loss (mL): 0 Urine output (mL): 0 Blood Pressure: 107/53 SaO2: 94 Pulse Rate: 58 Respiratory Rate: 12 Temperature: 97.5 F Patient is:: Awake and Stable Stable to PACU at:: 07:55
[2023-02-07 12:45] VITALS: BP 113/76; PULSE 86; TEMP 36.2
--- NOTE | 2023-02-07 12:45 | EXP.ANES.II ---
[facility] Anesthesia Record Part II Anesthesia Record Part II Discharge Time: 08:35 Destination: Surgical Day Care (OP Surgery) PACU nurse assessment reviewed?: Yes Patient Condition:: Good Anesthesia Complications:: None Swallowing reflex intact?: Yes Cyanosis?: No Blood Pressure: 113/76 Pulse Rate: 86 Temperature: 97.1 F Mental Status: Alert & Oriented Pain level:: 0 Nausea and/or vomitting:: None Intake, IV Amount: 0
== END 2023-02-04 09:10 | disposition home or self-care (01) ==
PROVIDERS: PCP Emergency Medicine; Visit Provider Nurse Practitioner Obstetrics & Gynecology
PROC: 0U5B8ZZ Destruction of Endometrium, Via Natural or Artificial Opening Endoscopic (ICD-10-PCS; CPT 58563; principal; 2023-02-04 07:30)
DX: N92.0 Excessive and frequent menstruation with regular cycle (principal); Z79.899 Other long term (current) drug therapy
CPT/HCPCS: 58563; 80053; 81025; 85025; 96374; J2405

== ENCOUNTER 2023-03-04 18:42 | Emergency (ER) | payer BC, SELFPAY ==
[2023-03-04 18:43] VITALS: BP 121/79; PULSE 74; RESP 17; TEMP 36.8; O2SAT 99; BMI 27.4
--- NOTE | 2023-03-04 18:58 | CT_ITS ---
PROCEDURE INFORMATION: Exam: CT Abdomen And Pelvis With Contrast Exam date and time: 03/04/2023 7:55 PM Age: 32 years old Clinical indication: Abdominal pain; Localized; Right lower quadrant (rlq); Additional info: Rlq pain TECHNIQUE: Imaging protocol: Computed tomography of the abdomen and pelvis with contrast. Radiation optimization: All CT scans at this facility use at least one of these dose optimization techniques: automated exposure control; mA and/or kV adjustment per patient size (includes targeted exams where dose is matched to clinical indication); or iterative reconstruction. Contrast material: ISOVUE; Contrast volume: 75 ml; Contrast route: IV; REPORTING DATA: Count of CT and Cardiac NM exams in prior 12 months: This patient has received 0 known CTs and 0 known cardiac nuclear medicine studies in the 12 months prior to the current study. COMPARISON: CT ABDOMEN PELVIS W CON 01/28/2020 11:06 AM FINDINGS: Lungs: Mild atelectasis in the lung bases. Heart: Heart size normal. Mediastinal space: The visualized distal esophagus is largely contracted without gross abnormality. Liver: Normal contour. No mass lesions. No intrahepatic biliary ductal dilatation. Gallbladder and bile ducts: Normal. No calcified stones. No ductal dilation. Pancreas: Normal. No inflammatory changes or ductal dilation. Spleen: Borderline mild splenomegaly measuring 13.3 cm. No focal splenic lesions. Adrenal glands: Normal. No adrenal mass. Kidneys and ureters: No acute abnormalities. No hydronephrosis or hydroureter. No urinary tract stones are identified. Stomach and bowel: The stomach is unremarkable. The small bowel is nondilated with no gross abnormality. There is a moderate amount of stool distributed in the mid and proximal colon suggesting possible constipation. Appendix: No evidence of appendicitis. Intraperitoneal space: Minimal amount of intrapelvic free fluid, within physiologic range for a young woman. No free air. Vasculature: No acute process. No abdominal aortic aneurysm. Lymph nodes: No adenopathy. Urinary bladder: The urinary bladder is largely contracted without gross abnormality. Reproductive: Uterus and left ovary are unremarkable. There is a 2.2 cm partially collapsed appearing cyst with mild peripheral enhancement in the right ovary most consistent with a recently ruptured and involuting ovarian follicle. This is within physiologic range but may produce symptoms. Bones/joints: No acute osseous abnormalities. Soft tissues: Very small fatty umbilical hernia . No evidence of associated bowel herniation or strangulation. IMPRESSION: 1. There is a 2.2 cm collapsed appearing peripherally enhancing cyst in the right ovary most consistent with a recently ruptured and involuting ovarian follicle. This is within physiologic range but may produce symptoms. 2. Trace intrapelvic free fluid, within physiologic range. No free air. 3. Borderline mild splenomegaly. 4. There is a moderate amount of stool distributed in the mid and proximal colon suggesting possible constipation. 5. Additional nonemergent findings detailed above.
--- NOTE | 2023-03-04 19:00 | HMH.EDABDPAI ---
Discharge Plan Disposition Patient Disposition: Home, Self-Care Condition: Good Prescriptions Prescriptions: New hydrocodone-acetaminophen 5-325 mg tablet 1 tab PO Q8H PRN (Reason: pain) Qty: 14 0RF No Action montelukast 10 mg tablet 10 mg PO HS Qty: 30 2RF Linzess 145 mcg capsule 145 mcg PO DAILY Label Comments: TAKE ONE CAPSULE BY MOUTH EVERY DAY levocetirizine 5 mg tablet See Rx Instructions .ROUTE .COMPLEX Rx Instructions: TAKE 1 TABLET BY MOUTH ONCE DAILY FOR ALLERGY SYMPTOMS cholecalciferol (vitamin D3) 50 mcg (2,000 unit) capsule 50 mcg PO DAILY cholecalciferol (vitamin D3) 1,250 mcg (50,000 unit) tablet 1,250 mcg PO WEEKLY oxycodone-acetaminophen [Percocet] 5-325 mg Tablet 1 tab PO Q4-6H PRN (Reason: severe pain.) Qty: 12 0RF Referrals Follow up/Referrals: Manish Hilton MD [Primary Care Provider] - See instructions Activity Restrictions/Add. Instructions Additional Instructions/Restrictions: Pelvic rest and avoid strenuous physical activity. Return for severe persistent worsening pain or other concerns. Follow-up with your juvenile justice officer Clinical Impressions Clinical Impression: Ovarian cyst rupture Stand Alone Forms Stand Alone Forms: Work/School Release Instructions Patient Instructions: DI for Acute Abdominal Pain Discharge ED Provider: Donaldo Grajeda Abdominal Pain HPI General Chief Complaint: Abdominal Pain Stated Complaint: Right side pain radiating down right leg Time Seen by Provider: 03/04/23 18:54 Mode of Arrival: Ambulatory Source of Information: Patient Limitations: No Limitations Description of Symptoms (Recalled from ER Triage Doc. by RN): pt to the ED with RLQ pain that radiates down her right leg. pt reports the pain started 30 minutes ago and denies any known injury History of Present Illness HPI narrative: Patient presents complaining of right lower quadrant abdominal pain that began approximately 30 minutes prior to ED presentation. She describes the pain as sudden onset and severe she denies vomiting or diarrhea she denies abnormal vaginal discharge or bleeding, hematuria or dysuria or fever. Pain is worse with certain movements. Related Data Home Medications Medication Instructions Recorded Confirmed cholecalciferol (vitamin D3) 1,250 1,250 mcg PO WEEKLY Supplement 01/30/23 02/04/23 mcg (50,000 unit) tablet cholecalciferol (vitamin D3) 50 50 mcg PO DAILY Supplement 01/30/23 02/04/23 mcg (2,000 unit) capsule levocetirizine 5 mg tablet See Rx Instructions .Route 01/30/23 02/04/23 .COMPLEX allergies linaclotide 145 mcg capsule 145 mcg PO DAILY constipation 01/30/23 02/04/23 (Linzess) Previous Rx's Medication Instructions Recorded montelukast 10 mg tablet 10 mg PO HS Allergy symptoms #30 12/08/21 tabs oxycodone-acetaminophen 5 mg-325 1 tab PO Q4-6H PRN severe pain. 02/04/23 mg tablet (Percocet) #12 tabs hydrocodone 5 mg-acetaminophen 325 1 tab PO Q8H PRN pain #14 tabs 03/04/23 mg tablet Allergies Allergy/AdvReac Type Severity Reaction Status Date / Time Sulfa (Sulfonamide Allergy Unknown R/T Verified 01/30/23 13:44 Antibiotics) AUTOIMMUNE [SULFA (SULFONAMIDE DISEASE ANTIBIOTICS)] guaifenesin [From Mucinex] Allergy Verified 01/30/23 13:44 [facility] Disclaimer: The information contained in this section may have been updated after the patient was seen, as this information can be updated by other users. Medical History BMI 32.0-32.9,adult Depression Urinary tract infection Surgical History H/O LEEP Family History Other Anemia Asthma Diabetes Family history of cancer Social History Smoking Status: Never smoker second hand exposure: No alcohol intake:
[2023-03-04 19:14] LABS: Basophils % 0.4 % (0.1-2.0); Eosinophils # 0.4 K/mm3 (0.0-0.4); Eosinophils % 4.3 % (0.1-12.0); Hematocrit 38.9 % (37.0-47.0); Hemoglobin 12.8 g/dL (12.2-16.2); Lymphocytes # 2.6 K/mm3 (0.7-4.5); Lymphocytes % 25.7 % (10-50); Mean Corpuscular HGB Conc 32.9 g/dL (31.8-35.4); Mean Corpuscular Hemoglobin 29.4 pg (27.0-31.2); Mean Corpuscular Volume 89.4 fl (81-99); Mean Platelet Volume 8.2 fl (7.4-10.4); Monocytes # 0.6 K/mm3 (0.1-1.0); Monocytes % 6.2 % (1.7-9.3); Neutrophils # 6.3 K/mm3 (1.8-7.8); Neutrophils % 63.4 % (37.0-80.0); Platelet Count 338 K/mm3 (142-424); Red Blood Count 4.35 M/mm3 (4.20-5.40); Red Cell Distribution Width 13.9 % (11.5-17.5)
[2023-03-04 19:15] LABS: Microscopic, Urine URINE MICROSCOPIC (MICROSCOPIC)
[2023-03-04 19:16] VITALS: BP 112/70
[2023-03-04 19:22] LABS: Appearance,Urine CLEAR (Clear); Bilirubin,Urine Negative (Negative); Blood, Urine 2+ (Negative); Color,Urine YELLOW (Yellow); Glucose,Urine (UA) Negative (Negative); Ketones,Urine Negative (Negative); Leukocyte Esterase,Urine Negative (Negative); Nitrate,Urine Negative (Negative); Protein,Urine Negative (Negative); Urobilinogen,Urine 0.2 EU/dl (0.2)
[2023-03-04 19:23] LABS: Chloride 101 mmol/L (98-107); Potassium 3.6 mmoL/L (3.5-5.1); Sodium 140 mmol/L (136-145)
[2023-03-04 19:26] LABS: Alanine Aminotransferase 18 U/L (12-78); Albumin Level 4.4 g/dl (3.5-5.0); Albumin/Globulin Ratio 1.4 (1.1-1.8); Alkaline Phosphatase 76 U/L (38-126); Anion Gap 16.6 mEq/L (5-15); Aspartate Amino Transferase 27 U/L (14-36); Bilirubin,Total 0.3 mg/dl (0.2-1.3); Blood Urea Nitrogen 16 mg/dl (7-17); Calcium 8.3 mg/dl (8.4-10.2); Carbon Dioxide 26 mmol/L (22.0-30.0); Creatinine Clearance Estimated 151 mL/min (50-200); Estimated Glomerular Filt Rate 117 ml/min (>60); GFR (African American) 141 ML/MIN (>60); Globulin 3.2 g/dL (1.3-3.2); Glucose 93 mg/dl (74-100); Lipase 90 U/L (23-300); Total Protein,Serum 7.6 g/dl (6.3-8.2)
[2023-03-04 19:30] VITALS: BP 119/63
[2023-03-04 19:45] LABS: HCG,Quantitative < 2 mIU/ml (0-5.42)
[2023-03-04 19:55] LABS: Bacteria,Urine 2+ /lpf; RBC,Urine Occasional #/hpf (0-3); WBC,Urine Occasional #/hpf (0-3)
--- NOTE | 2023-03-04 20:49 | PC.NURSE ---
called radio mechanic apprentice to check on ct scan results. States [facility] is reading now.
[2023-03-04 21:11] VITALS: BP 115/72; PULSE 71; RESP 16; TEMP 36.8
== END 2023-03-04 21:13 | disposition home or self-care (01) ==
PROVIDERS: Emergency Provider Emergency Medicine; PCP Emergency Medicine
DX: N83.291 Other ovarian cyst, right side (principal)
CPT/HCPCS: 74177; 80053; 81001; 83690; 84702; 85025; 87086; 99284; 99285; Q9967

== ENCOUNTER 2023-09-16 17:28 | Emergency (ER) | payer BC, SELFPAY ==
[2023-09-16 17:55] VITALS: BP 135/63; PULSE 98; RESP 18; TEMP 37.2; O2SAT 97; BMI 27.4
--- NOTE | 2023-09-16 18:16 | EXP.UTC ---
Discharge Plan Disposition Patient Disposition: Home, Self-Care Condition: Good Prescriptions Prescriptions: New jpgoexayytygqbi-ufayxqvqi-XI [Bromfed DM] 2-30-10 mg/5 mL Syrup 5 ml PO Q6H PRN (Reason: Cough) Qty: 240 0RF prednisone 10 mg tablet 10 mg PO BID 3 Days Qty: 6 0RF amoxicillin [amoxicillin] 500 mg tablet 500 mg PO TID 10 Days Qty: 30 0RF No Action bupropion HCl [Wellbutrin XL] 150 mg tablet extended release 24 hr 150 mg PO DAILY Qty: 30 1RF montelukast 10 mg tablet 10 mg PO HS Qty: 30 2RF Linzess 145 mcg capsule 145 mcg PO DAILY Patient Comments: TAKE ONE CAPSULE BY MOUTH EVERY DAY levocetirizine 5 mg tablet See Rx Instructions .ROUTE .COMPLEX Rx Instructions: TAKE 1 TABLET BY MOUTH ONCE DAILY FOR ALLERGY SYMPTOMS cholecalciferol (vitamin D3) 1,250 mcg (50,000 unit) tablet 1,250 mcg PO WEEKLY Referrals Follow up/Referrals: Manish Hilton MD [Primary Care Provider] - See instructions Activity Restrictions/Add. Instructions Additional Instructions/Restrictions: Drink plenty of fluids. Take tylenol or ibuprofen for pain or fever. Take the medications as directed. Follow up with your regular doctor. GO TO THE ER FOR ANY WORSENING SYMPTOMS Clinical Impressions Clinical Impression: Pharyngitis Stand Alone Forms Stand Alone Forms: Work/School Release Instructions Patient Instructions: Sore Throat, DI for Pharyngitis/Tonsillopharyngitis -- Adult Discharge ED Provider: Ethan Longo [facility] General Stated complaint: st, bonilla, dry throat Mode of Arrival: Ambulatory Source of Information: Patient Limitations: No Limitations Time Seen by Provider: 09/16/23 18:16 Description of Symptoms (Recalled from Triage Doc. by RN): sore throat, nasal drip, and BONILLA HEENT Symptoms (Recalled from RN notes): Yes Resp Symptoms (Recalled from RN notes): No Skin Symptoms (Recalled from RN notes): No MS Symptoms (Recalled from RN notes): No Functional Status (Recalled from RN notes): n/a History of Present Illness Provider Complaint: She states that for the past 2 days she has had sore throat, chills, body aches and low grade fever. Related Data Home Medications Medication Instructions Recorded Confirmed cholecalciferol (vitamin D3) 1,250 1,250 mcg PO WEEKLY Supplement 01/30/23 09/16/23 mcg (50,000 unit) tablet levocetirizine 5 mg tablet See Rx Instructions .Route 01/30/23 09/16/23 .COMPLEX allergies linaclotide 145 mcg capsule 145 mcg PO DAILY constipation 01/30/23 09/16/23 (Linzess) Previous Rx's Medication Instructions Recorded montelukast 10 mg tablet 10 mg PO HS Allergy symptoms #30 12/08/21 tabs bupropion HCl 150 mg 24 hr tablet, 150 mg PO DAILY #30 tabs 07/16/23 extended release (Wellbutrin XL) amoxicillin 500 mg tablet 500 mg PO TID 10 days #30 tabs 09/16/23 jwbeilvpkqvjarn-dxiqaemdlncvbfq-CM 5 ml PO Q6H PRN Cough #240 mL 09/16/23 2 mg-30 mg-10 mg/5 mL oral syrup (Bromfed DM) prednisone 10 mg tablet 10 mg PO BID 3 days #6 tabs 09/16/23 Allergies Allergy/AdvReac Type Severity Reaction Status Date / Time Sulfa (Sulfonamide Allergy Unknown R/T Verified 09/16/23 17:59 Antibiotics) AUTOIMMUNE [SULFA (SULFONAMIDE DISEASE ANTIBIOTICS)] guaifenesin [From Mucinex] Allergy Verified 09/16/23 17:59 Worker's Comp Is this a Worker's Comp case?: No [facility] Disclaimer: The information contained in this section may have been updated after the patient was seen, as this information can be updated by other users. Medical History (Updated 09/16/23 @ 18:35 by Ethan Longo APRN) BMI 32.0-32.9,adult Depression Major depressive disorder Urinary tract infection Surgical History H/O dilation and curettage H/O LEEP History of endometrial ablation History of hysteroscopy Family History Other
[2023-09-16 18:25] LABS: UTC Strep Screen (Rapid) Negative (Negative)
[2023-09-16 18:47] VITALS: BP 135/63; PULSE 98; RESP 18; TEMP 37.2; O2SAT 98
== END 2023-09-16 18:45 | disposition home or self-care (01) ==
PROVIDERS: Emergency Provider Nurse Practitioner Family; PCP Emergency Medicine
DX: J02.9 Acute pharyngitis, unspecified (principal); R50.9 Fever, unspecified; R51.9 Headache, unspecified
CPT/HCPCS: 87880; 99212; 99214; G0463

== ENCOUNTER 2023-12-16 15:33 | Outpatient (CLI) | payer BC, SELFPAY ==
--- NOTE | 2023-12-16 15:43 | XR_ITS ---
PROCEDURE INFORMATION: Exam: XR Lumbosacral Spine Exam date and time: 12/16/2023 4:12 PM Age: 33 years old Clinical indication: Low back pain; Additional info: Lumbar pain radiating lle TECHNIQUE: Imaging protocol: Radiologic exam of the lumbosacral spine. Views: 4 or 5 views. COMPARISON: CT ABDOMEN PELVIS W CON 03/04/2023 7:55 PM FINDINGS: Bones/joints: Normal. No acute fracture. Normal alignment. Soft tissues: Unremarkable. IMPRESSION: No acute findings.
--- NOTE | 2023-12-16 15:43 | XR_ITS ---
PROCEDURE INFORMATION: Exam: XR Cervical Spine Exam date and time: 12/16/2023 4:12 PM Age: 33 years old Clinical indication: Neck pain; Additional info: Neck pain radiating down left arm TECHNIQUE: Imaging protocol: Radiologic exam of the cervical spine. Views: 4 or 5 views. COMPARISON: CT CERVICAL SPINE WO CON 06/22/2019 3:15 PM FINDINGS: Bones/joints: Posterior spurring most severe involving the posteroinferior corner of C6. Mild to moderate facet joint hypertrophic changes. Mild left-sided foraminal narrowing at C6/7 with right-sided foramina being unremarkable. Arthritic changes have progressed since the previous study. No fracture. Soft tissues: Unremarkable. IMPRESSION: Mild progression of arthritic disease most severe at C6/7 especially on the left.
== END 2023-12-16 23:59 ==
LOC: RAD 15:34
PROVIDERS: PCP Physician Assistant; Visit Provider Physician Assistant
DX: M54.2 Cervicalgia (principal); M54.50 Low back pain, unspecified
CPT/HCPCS: 72050; 72110

== ENCOUNTER 2024-01-21 16:36 | Emergency (ER) | payer BC, SELFPAY ==
[2024-01-21 16:50] VITALS: BP 124/98; PULSE 77; RESP 18; TEMP 36.8; O2SAT 99; BMI 31.8
--- NOTE | 2024-01-21 17:03 | EXP.UTC ---
Discharge Plan Disposition Patient Disposition: Home, Self-Care Condition: Good Prescriptions Prescriptions: New azithromycin [Zithromax] 250 mg tablet 250 mg PO UD DOSE PK Qty: 6 0RF Rx Instructions: Take two (2) tablets today, then one (1) tablet days #2 thru #5 methylprednisolone 4 mg Tablets,Dose Pack 4 mg PO DIRECTED 6 Days Qty: 21 0RF Rx Instructions: Take 1 pack as directed for 6 days vbcibcbupehfygu-apmuqrxzm-LC [Bromfed DM] 2-30-10 mg/5 mL Syrup 5 ml PO Q6H PRN (Reason: Cough) Qty: 240 0RF No Action ipratropium bromide 21 mcg (0.03 %) spray,non-aerosol 2 spray intranasal DAILY Patient Comments: USE 1 SPRAY(S) IN EACH NOSTRIL TWICE DAILY celecoxib [Celebrex] 200 mg capsule 200 mg PO DAILY Qty: 30 2RF bupropion HCl [Wellbutrin XL] 300 mg tablet extended release 24 hr 300 mg PO DAILY Qty: 30 1RF montelukast 10 mg tablet 10 mg PO HS Qty: 30 2RF Linzess 145 mcg capsule 145 mcg PO DAILY Patient Comments: TAKE ONE CAPSULE BY MOUTH EVERY DAY levocetirizine 5 mg tablet See Rx Instructions .ROUTE .COMPLEX Rx Instructions: TAKE 1 TABLET BY MOUTH ONCE DAILY FOR ALLERGY SYMPTOMS cholecalciferol (vitamin D3) 1,250 mcg (50,000 unit) tablet 1,250 mcg PO WEEKLY Referrals Follow up/Referrals: Cristiana Faustin PA [Primary Care Provider] - See instructions Activity Restrictions/Add. Instructions Additional Instructions/Restrictions: Drink plenty of fluids. Take tylenol or ibuprofen for pain or fever. Take the medications as directed. Follow up with your regular doctor. GO TO THE ER FOR ANY WORSENING SYMPTOMS Clinical Impressions Clinical Impression: Sinusitis Stand Alone Forms Stand Alone Forms: Work/School Release Instructions Patient Instructions: Sinusitis, DI for Sinusitis Discharge ED Provider: [place] Long[place] [facility] [place] General Stated complaint: BONILLA,nose dry,Face hurts from head to neck Time Seen by Provider: 01/21/24 17:03 History of Present Illness Provider Complaint: She states that for the past 3 days she has has sinus congestion, sinus pressure, and headache. Related Data Home Medications Medication Instructions Recorded Confirmed cholecalciferol (vitamin D3) 1,250 1,250 mcg PO WEEKLY Supplement 01/30/23 01/21/24 mcg (50,000 unit) tablet levocetirizine 5 mg tablet See Rx Instructions .Route 01/30/23 01/21/24 .COMPLEX allergies linaclotide 145 mcg capsule 145 mcg PO DAILY constipation 01/30/23 01/21/24 (Linzess) ipratropium bromide 21 mcg (0.03 2 spray intranasal DAILY allergies 12/16/23 01/21/24 %) nasal spray Previous Rx's Medication Instructions Recorded montelukast 10 mg tablet 10 mg PO HS Allergy symptoms #30 12/08/21 tabs bupropion HCl 300 mg 24 hr tablet, 300 mg PO DAILY #30 tabs 12/04/23 extended release (Wellbutrin XL) celecoxib 200 mg capsule (Celebrex) 200 mg PO DAILY #30 caps 12/16/23 azithromycin 250 mg tablet 250 mg PO UD DOSE PK #6 tabs 01/21/24 (Zithromax) zshqqglfqxktvse-tgkqwkwvngjcefg-OB 5 ml PO Q6H PRN Cough #240 mL 01/21/24 2 mg-30 mg-10 mg/5 mL oral syrup (Bromfed DM) methylprednisolone 4 mg tablets in 4 mg PO DIRECTED 6 days #21 tabs 01/21/24 a dose pack Allergies Allergy/AdvReac Type Severity Reaction Status Date / Time Sulfa (Sulfonamide Allergy Unknown R/T Verified 01/21/24 17:05 Antibiotics) AUTOIMMUNE [SULFA (SULFONAMIDE DISEASE ANTIBIOTICS)] guaifenesin [From Mucinex] Allergy Verified 01/21/24 17:05 [facility] Disclaimer: The information contained in this section may have been updated after the patient was seen, as this information can be updated by other users. Medical History (Updated 01/21/24 @ 17:22 by Ethan Longo APRN) Chronic constipation Major depressive disorder Menorrhagia Depression Urinary tract infection BMI 32.0-32.9,adult HGSIL (high grade squamous intraepithelial lesion) on Pap smear of cervix Surgical History History of endometrial ablation H/O dilation and curettage History of hysteroscopy H/O LEEP Family History Other Anemia Asthma Diabetes Family history of cancer Social History Smoking Status: Never smoker second hand exposure: No alcohol intake: never substance use type: denies use current occupational status: other Travel in the last 8 weeks: None household members: spouse and children housing: house number of children: 2 current occupation: [employer] current occupational exposures/hazards: No caffeine: Yes ROS Obtained: Yes All systems reviewed & no additional complaints except as documented Constitutional Constitutional: Reports poor appetite Eyes Eyes: Reports system reviewed and no additional complaints, except as documented ENT Ears, Nose, Mouth, and Throat: Reports as per HPI Cardiovascular Cardiovascular: Reports system reviewed and no additional complaints, except as documented and Denies chest pain Respiratory Respiratory: Denies shortness of breath, Denies chest congestion, Reports cough, Denies stridor and Denies wheezing Gastrointestinal Gastrointestingal: Reports system reviewed and no additional complaints, except as documented; Denies abdominal pain, diarrhea or vomiting Musculoskeletal Musculoskeletal: Reports system reviewed and no additional complaints, except as documented and Denies arthralgias Integumentary/Breasts Skin/Breast: Reports system reviewed and no additional complaints, except as documented and Denies rash Neurologic Neurologic: Denies paresthesias Allergic/Immunologic Allergic/Immunologic: Denies wheezing Physical Exam General General appearance: alert and in no apparent distress Eye Eye exam: Present normal appearance, PERRL and EOMI ENT ENT exam: Present mucous membranes moist and normal external ear exam Expanded ENT Exam External ear exam: Present normal external inspection TM/Canal exam: Bilateral TM: erythema and bulging Nose exam: Absent sinus tenderness Nasal speculum exam: Bilateral: normal Mouth exam: Present normal external inspection; Absent drooling Teeth exam: Present normal inspection Throat exam: Present tonsillar erythema and tonsillomegaly Neck Neck exam: Present normal inspection, full ROM and trachea midline; Absent tenderness, lymphadenopathy or thyromegaly Chest Chest inspection: Present normal inspection and symmetric chest wall rise; Absent tenderness or rash Respiratory Respiratory exam: Present normal lung sounds bilaterally; Absent respiratory distress, wheezes, stridor or accessory muscle use Cardiovascular Cardiovascular exam: Present regular rate, normal rhythm and normal heart sounds Abdominal Exam Abdominal exam: Present soft; Absent distention, tenderness, guarding, rebound or rigidity Extremities Exam Extremities exam: Present normal inspection, full ROM and normal capillary refill; Absent tenderness or calf tenderness Back Exam Back exam: Present normal inspection and full ROM; Absent tenderness Neurological Exam Neurological exam: Present alert and oriented X3 Psychiatric Psychiatric exam: Present normal affect and normal mood Skin Skin exam: Present warm, dry, intact and normal color Lymphatic Lymphatic Findings: no adenopathy Medical Decision Making Medical Records Medical records reviewed: No I reviewed the patient's medical records. Gregorio Inquiry Pt receiving controlled substance: No Lab Data Lab results reviewed: Yes I reviewed the patient's lab results.
[2024-01-21 17:31] LABS: UTC Influenza A Antigen Negative (Negative); UTC Influenza B Antigen Negative (Negative)
[2024-01-21 17:42] VITALS: BP 124/98; PULSE 77; RESP 18; TEMP 36.8; O2SAT 99
[2024-01-21 17:44] LABS: Coronavirus 19, PCR Not Detected (NotDetected); Influenza A, PCR Not Detected (NotDetected); Influenza B, PCR Not Detected (NotDetected)
--- NOTE | 2024-01-21 20:01 | PC.NURSE ---
Call pt about test results was unable to leave message
== END 2024-01-21 17:42 | disposition home or self-care (01) ==
PROVIDERS: Emergency Provider Nurse Practitioner Family; PCP Physician Assistant
DX: J01.90 Acute sinusitis, unspecified (principal); R51.9 Headache, unspecified; R09.81 Nasal congestion; F32.9 Major depressive disorder, single episode, unspecified
CPT/HCPCS: 87636; 87804; 99212; 99214; G0463

== ENCOUNTER 2024-08-10 18:58 | Emergency (ER) | payer BC, SELFPAY ==
[2024-08-10 18:59] VITALS: BP 143/88; PULSE 97; RESP 18; TEMP 36.7; O2SAT 100; BMI 27.4
--- NOTE | 2024-08-10 19:37 | ED_ITS ---
Discharge Plan Disposition Patient Disposition: Home, Self-Care Prescriptions Prescriptions: New amoxicillin-pot clavulanate 875-125 mg tablet 1 tab PO BID 7 Days Qty: 14 0RF No Action bupropion HCl [Wellbutrin XL] 300 mg tablet extended release 24 hr 300 mg PO DAILY Qty: 30 1RF triamcinolone acetonide 0.1 % cream 1 applic topical BID Qty: 30 0RF Linzess 145 mcg capsule 145 mcg PO DAILY Qty: 90 3RF montelukast 10 mg tablet 10 mg PO HS Qty: 30 2RF cetirizine 10 mg tablet See Rx Instructions .ROUTE .COMPLEX Qty: 90 3RF Dose Instruction: TAKE 1 TABLET BY MOUTH ONCE DAILY NEEDED FOR ALLERGY SYMPTOMS Rx Instructions: TAKE 1 TABLET BY MOUTH ONCE DAILY NEEDED FOR ALLERGY SYMPTOMS ipratropium bromide 21 mcg (0.03 %) spray,non-aerosol 2 spray intranasal BID Qty: 30 2RF Rx Instructions: administer into each nostril cholecalciferol (vitamin D3) 1,250 mcg (50,000 unit) tablet 1,250 mcg PO WEEKLY Referrals Follow up/Referrals: Veena Oliveira PA [Primary Care Provider] - See instructions Activity Restrictions/Add. Instructions Additional Instructions/Restrictions: Call your family doctor to establish care for this visit to the emergency department and schedule follow-up within 48 hours to ensure improvement. If you have any worsening of your condition or any other concerning signs or symptoms, return to the emergency department or your primary care doctor for further evaluation. Augmentin twice daily for 7 days. Talk to your dentist about root canal and crown as opposed to removing the tooth. Clinical Impressions Clinical Impression: Pain, dental Print Language Print Language: Kazakh Discharge ED Provider: Donaldo Singletary General Adult HPI General Chief complaint: Dental/Oral Stated complaint: dental pain Time Seen by Provider: 08/10/24 19:14 Mode of Arrival: Ambulatory Source of Information: Patient Limitations: No Limitations Description of Symptoms (Recalled from ER Triage Doc. by RN): Patient presents to ED with a lower left toothache. Patient states she seen a dentist on saturday and her dentist wantd to extract the tooth and patient refused. Patient rates pain 08/13. History of Present Illness HPI narrative: Please note that above description of symptoms, in this electronic medical record under categorization of recalled from ER triage doctor by RN are reflective of an initial nursing assessment, however, is not reflective of my full history and physical exam that was personally taken and clarified. Consequentially, this preceding description of symptoms, which may include the patient's categorized chief complaint in the EMR, do not reflect my personal clinical impression, and the ultimate description of history of present illness and patient stated complaints should be deferred to this section of the note. Unless stated otherwise or congruent with this section of the note, additional signs, symptoms, or incongruence should be interpreted as inaccurate with my clinical impression. Related Data Home Medications ?Medication ?Instructions ?Recorded ?Confirmed cholecalciferol (vitamin D3) 1,250 1,250 mcg PO WEEKLY Supplement 01/30/23 06/22/24 mcg (50,000 unit) tablet Previous Rx's ?Medication ?Instructions ?Recorded bupropion HCl 300 mg 24 hr tablet, 300 mg PO DAILY #30 tabs 12/04/23 extended release (Wellbutrin XL) linaclotide 145 mcg capsule 145 mcg PO DAILY constipation #90 01/28/24 (Linzess) caps montelukast 10 mg tablet 10 mg PO HS Allergy symptoms #30 02/13/24 tabs cetirizine 10 mg tablet See Rx Instructions .Route 03/20/24 .COMPLEX #90 tabs triamcinolone acetonide 0.1 % 1 applic topical BID #30 grams 05/18/24 topical cream ipratropium bromide 21 mcg (0.03 2 spray intranasal BID #30 mL 05/19/24 %) nasal spray amoxicillin 875 mg-potassium 1 tab PO BID 7 days #14 tabs 08/10/24 clavulanate 125 mg tablet Allergies Allergy/AdvReac Type Severity Reaction Status Date / Time Sulfa (Sulfonamide Allergy Unknown R/T Verified 05/18/24 14:02 Antibiotics) AUTOIMMUNE [SULFA (SULFONAMIDE DISEASE ANTIBIOTICS)] guaifenesin [From Mucinex] Allergy Verified 05/18/24 14:02 [facility] Disclaimer: The information contained in this section may have been updated after the patient was seen, as this information can be updated by other users. Medical History Chronic constipation Major depressive disorder Menorrhagia Depression HGSIL (high grade squamous intraepithelial lesion) on Pap smear of cervix Surgical History History of endometrial ablation H/O dilation and curettage History of hysteroscopy H/O LEEP Family History Other Anemia Asthma Diabetes Family history of cancer Social History Smoking Status: Never smoker second hand exposure: No alcohol intake: never substance use type: denies use current occupational status: other Travel in the last 8 weeks: None household members: spouse and children housing: house number of children: 2 current occupation: [employer] current occupational exposures/hazards: No caffeine: Yes Other Medical History Have you received the Flu Vaccine for this season: No Have you received the Pneumonia Vaccine: No ROS Obtained: Yes All systems reviewed & no additional complaints except as do cumented Physical Exam General General appearance: alert Head Head exam: atraumatic and normocephalic Eye Eye exam: Present normal appearance, PERRL and EOMI ENT ENT exam: Present other (No evidence of tonsillitis, exudate, pharyngeal erythema, uvular deviation, palatal swelling, trismus, external neck swelling, submental induration, dental abscess, angioedema, or other abnormal shabnam pharyngeal findings) Neck Neck exam: Present normal inspection, full ROM and trachea midline Respiratory Respiratory exam: Absent respiratory distress, wheezes, stridor, accessory muscle use or prolonged expiratory phase Cardiovascular Cardiovascular exam: Present other (Pulses equal symmetric in upper and lower extremities) Abdominal Exam Abdominal exam: Present soft; Absent distention, tenderness or pulsatile mass Extremities Exam Extremities exam: Absent edema Neurological Exam Neurological exam: Present alert, oriented X3 and CN II-XII intact; Absent motor sensory deficit Skin Skin exam: Present warm and dry; Absent diaphoresis or erythema Medical Decision Making Medical Records Medical records reviewed: Yes I reviewed the patient's medical records. Screening: Per USPSTF and CDC recommendations, given the prevalence of disease in our region, it is our hospital?s policy to screen for HIV and viral Hepatitis for all patients aged 18 and over and those with ongoing risk factors. Gregorio Inquiry Pt receiving controlled substance: No Gregorio was queried for this patient: No Vital Signs: 08/10/24 18:59 Temperature 98.0 F Temperature Source Oral Pulse Rate [Right Brachial] 97 H Respiratory Rate 18 Blood Pressure [Right Arm] 143/88 H Blood Pressure Mean [Right Arm] 106 Blood Pressure Source [Right Arm] Automatic Cuff Blood Pressure Position [Right Arm] Supine 02 Sat by Pulse Oximetry 100 Oxygen Delivery Method Room Air Orders (Tests/Meds): ED MEDICATIONS Discontinued Medications Generic Name Dose Route Start Last Admin Trade Name Steve PRN Reason Stop Dose Admin Amoxicillin/Clavulanate Potassium 1 each 08/10/24 19:20 Amoxicillin/Clavulanate Potassium 875/125mg Tablet PO 08/10/24 19:21 ONCE ONE Lidocaine HCl 15 ml 08/10/24 19:20 Lidocaine 2% Viscous Alba 15ml Udc PO 08/10/24 19:21 ONCE ONE Medical Decision Narrative: This is a 34-year-old female history of dental carry and dental filling presenting with dental pain. Patient states that she has been following with a dentist for this. Had a feeling in tooth in the left side of her mandible. Started having pain a couple days prior to this. States that it starts in the tooth that has the feeling in it, radiates upward toward her ear and downward toward her chin intermittent, sharp and painful. Getting worse and more frequent. No fevers or chills, facial swelling, drainage. Patient states that she was seen by the dentist just a couple days ago, from the sounds of it she had a veneer placed on the front of the tooth to try to help as well as having it refilled. None of this seemed to help. Patient presents for further evaluation. History obtained the patient. On arrival, patient's oral exam completely benign. No evidence of tonsillitis, exudate, pharyngeal erythema, uvular deviation, palatal swelling, trismus, external neck swelling, submental induration, dental abscess, angioedema, or other abnormal shabnam pharyngeal findings. No lymphadenopathy, any other concerns. Patient was given dental balls and Augmentin here. Rest of Augmentin sent to her pharmacy after conversation regarding allergies Reveals that patient does not have any true medication allergies. Because patient at baseline without signs or symptoms of clinical decompensation, deemed appropriate for discharge. Results were relayed to patient who voiced understanding and were agreeable to outpatient management and follow up. I discussed my clinical impression with patient and answered all questions. At this time, the evidence for any other entities in the differential is insufficient to warrant any further testing or ED observation. This was explained as well. Advisory was given that persistent or worsening symptoms require further evaluation. I confirmed the understanding of this discussion. Dehydrating Press Operator disclaimer Much of this encounter note is an electronic curriculum designer spoken language to printed text. Electronic curriculum designer of the spoken language may permit errors. Although I have reviewed the note, some errors may still exist. Critical Care Critical Care Time Critical Care Time: No
[2024-08-10] MEDS: AMOXICILLIN/CLAVULANATE POTASSIUM 875/125MG TABLET 1 EACH PO (19:50)
[2024-08-10] MEDS: LIDOCAINE 2% VISCOUS SOL 15ML UDC 15 ML PO (19:50)
[2024-08-10 19:51] VITALS: BP 140/88; PULSE 88; RESP 20; TEMP 36.7; O2SAT 100
== END 2024-08-10 19:59 | disposition home or self-care (01) ==
PROVIDERS: Emergency Provider Emergency Medicine; PCP Student in an Organized Health Care Education/Training Program
DX: K08.89 Other specified disorders of teeth and supporting structures (principal)
CPT/HCPCS: 99282

== ENCOUNTER 2024-09-22 09:10 | Outpatient (CLI) | payer BC, SELFPAY ==
[2024-09-22 18:14] LABS: Coronavirus 19, PCR Not Detected (NotDetected); Influenza A, PCR Not Detected (NotDetected); Influenza B, PCR Not Detected (NotDetected)
== END 2024-09-22 23:59 | disposition home or self-care (01) ==
LOC: LAB.DROPOF 09-23 13:17
PROVIDERS: PCP Student in an Organized Health Care Education/Training Program; Visit Provider Student in an Organized Health Care Education/Training Program
DX: R09.81 Nasal congestion (principal); J02.9 Acute pharyngitis, unspecified
CPT/HCPCS: 87070; 87636

== ENCOUNTER 2025-04-13 14:43 | Outpatient (CLI) | payer BC, SELFPAY ==
[2025-04-13 18:47] LABS: Basophils % 0.5 % (0.1-2.0); Eosinophils # 0.2 Kmm3 (0.0-0.4); Hematocrit 40.2 % (37.0-47.0); Hemoglobin 13.3 g/dL (12.2-16.2); Immature Granulocytes # 0.01 10^3uL; Immature Granulocytes % 0.1 %; Lymphocytes # 2.1 K/mm3 (0.7-4.5); Lymphocytes % 27.4 % (10-50); Mean Corpuscular HGB Conc 33.1 g/dL (31.8-35.4); Mean Corpuscular Hemoglobin 29.4 pg (27.0-31.2); Mean Corpuscular Volume 88.7 fl (81-99); Mean Platelet Volume 10.9 fl (7.4-10.4); Monocytes # 0.5 K/mm3 (0.1-1.0); Monocytes % 6.5 % (1.7-9.3); Neutrophils # 4.9 K/mm3 (1.8-7.8); Neutrophils % 62.5 % (37.0-80.0); Nucleated Red Blood Cells # 0 10^3/uL; Nucleated Red Blood Cells % 0 %; Platelet Count 386 K/mm3 (142-424); Red Blood Count 4.53 M/mm3 (4.20-5.40); Red Cell Distribution Width 13.1 % (11.5-17.5); Red Cell Distribution Width-SD 42.7 fL; White Blood Count 7.8 K/mm3 (4.8-10.8)
[2025-04-13 19:30] LABS: Alanine Aminotransferase 19 U/L (12-78); Albumin Level 4.8 g/dl (3.5-5.0); Albumin/Globulin Ratio 1.7 (1.1-1.8); Alkaline Phosphatase 80 U/L (38-126); Anion Gap 10.4 mEq/L (5-15); Aspartate Amino Transferase 24 U/L (14-36); Bilirubin,Total 0.5 mg/dl (0.2-1.3); Blood Urea Nitrogen 15 mg/dl (7-17); Calcium 9.4 mg/dl (8.4-10.2); Carbon Dioxide 26 mmol/L (22.0-30.0); Chloride 105 mmol/L (98-107); Chol/HDL Ratio 3.2 (1-3.5); Cholesterol 208 mg/dl (140-200); Estimated Glomerular Filt Rate 82 ml/min (>60); GFR (African American) 99 ML/MIN (>60); Globulin 2.8 g/dL (1.3-3.2); Glucose 83 mg/dl (74-100); HDL Cholesterol 66 mg/dl (40-60); Potassium 4.4 mmoL/L (3.5-5.1); Sodium 137 mmol/L (136-145); Total Protein,Serum 7.6 g/dl (6.3-8.2); Triglycerides 101 mg/dl (30-150); VLDL Cholesterol 20 mg/dL (0-40)
[2025-04-13 19:42] LABS: Direct LDL Cholesterol 92.75 mg/dL (100-129)
[2025-04-13 19:45] LABS: 25-OH Vitamin D, Total 37.6 ng/mL (30-100)
[2025-04-13 20:00] LABS: Thyroid Stimulating Hormone 0.72 uIU/mL (0.465-4.68)
[2025-04-13 21:18] LABS: HIV Combo NEGATIVE (Negative)
[2025-04-13 21:26] LABS: Hepatitis C Ab Qual. W/ RFX NEGATIVE (Negative)
== END 2025-04-13 23:59 | disposition home or self-care (01) ==
LOC: LAB.DROPOF 04-14 11:44
PROVIDERS: PCP Nurse Practitioner Family; Visit Provider Nurse Practitioner Family
DX: E55.9 Vitamin D deficiency, unspecified (principal); R53.83 Other fatigue; Z13.9 Encounter for screening, unspecified
CPT/HCPCS: 80053; 80061; 82306; 84443; 85025; 86803; 87389

== ENCOUNTER 2025-04-19 10:58 | Outpatient (CLI) | payer BC, SELFPAY | END 2025-04-19 23:59 | disposition home or self-care (01) | LOC: LAB.DROPOF 04-20 09:27 | PROVIDERS: PCP Nurse Practitioner; Visit Provider Nurse Practitioner | DX: R39.89 Other symptoms and signs involving the genitourinary system (principal) | CPT/HCPCS: 87086; 87088 ==

== ENCOUNTER 2025-04-26 13:07 | Emergency (ER) | payer BC, SELFPAY ==
[2025-04-26 13:56] VITALS: BP 142/85; PULSE 98; RESP 17; TEMP 36.6; O2SAT 100; BMI 31.3
--- NOTE | 2025-04-26 14:00 | PC.NURSE ---
pt triaged at this time. urine sample collected. pt informed i could stright stick her now for labs and get an IV if needed when she gets back to a room. pt denied the stright stick because she didnt want multiple pokes. pt informed it could be an hour or so before she got a room and was okay with waiting
--- NOTE | 2025-04-26 15:27 | PC.NURSE ---
rounded in lobby no needs at the time
--- NOTE | 2025-04-26 15:55 | CT_ITS ---
PROCEDURE INFORMATION: Exam: CT Abdomen And Pelvis With Contrast Exam date and time: 04/26/2025 4:22 PM Age: 35 years old Clinical indication: Other: Pelvic pain; Additional info: Pelvis pain TECHNIQUE: Imaging protocol: Computed tomography of the abdomen and pelvis with contrast. Radiation optimization: All CT scans at this facility use at least one of these dose optimization techniques: automated exposure control; mA and/or kV adjustment per patient size (includes targeted exams where dose is matched to clinical indication); or iterative reconstruction. Contrast material: ISOVUE; Contrast volume: 75 ml; Contrast route: IV; COMPARISON: CT ABDOMEN PELVIS W CON 03/04/2023 7:55 PM FINDINGS: Liver: Normal. No mass. Gallbladder and biliary ducts: Normal. No calcified stones. No ductal dilation. Pancreas: Normal. No ductal dilation. Spleen: Multiple benign-appearing calcific densities of the spleen. Adrenal glands: Normal. No mass. Kidneys and ureters: Normal. No hydronephrosis. Stomach and bowel: Unremarkable. No obstruction. No mucosal thickening. Appendix: No evidence of appendicitis. Intraperitoneal space: Unremarkable. No free air. No significant fluid collection. Vasculature: Unremarkable. No abdominal aortic aneurysm. Lymph nodes: Unremarkable. No enlarged lymph nodes. Urinary bladder: Unremarkable as visualized. Reproductive: Rim enhancing right ovarian cyst compatible with corpus luteum cyst measuring 1.7 cm in diameter. Bones/joints: Unremarkable. No acute fracture. Soft tissues: Normal. IMPRESSION: No acute findings.
[2025-04-26 16:01] LABS: Microscopic, Urine URINE MICROSCOPIC (MICROSCOPIC)
[2025-04-26 16:03] LABS: Appearance,Urine CLEAR (Clear); Bilirubin,Urine Negative (Negative); Blood, Urine Negative (Negative); Color,Urine YELLOW (Yellow); Glucose,Urine (UA) Negative (Negative); Ketones,Urine Negative (Negative); Leukocyte Esterase,Urine Negative (Negative); Nitrate,Urine Negative (Negative); Protein,Urine Negative (Negative); Urobilinogen,Urine 0.2 EU/dl (0.2)
[2025-04-26] MEDS: 0.9 % SODIUM CHLORIDE 1000ML 1,000 ML 999 ML IV (16:06)
[2025-04-26 16:07] LABS: Urine Pregnancy, HCG Qual. Negative (Negative)
[2025-04-26 16:08] LABS: Basophils # 0.1 K/mm3 (0-0.2); Basophils % 0.5 % (0.1-2.0); Eosinophils # 0.3 Kmm3 (0.0-0.4); Eosinophils % 2.1 % (0.1-12.0); Hematocrit 39.8 % (37.0-47.0); Hemoglobin 13.5 g/dL (12.2-16.2); Immature Granulocytes # 0.02 10^3uL; Immature Granulocytes % 0.2 %; Lymphocytes # 2.7 K/mm3 (0.7-4.5); Lymphocytes % 22.6 % (10-50); Mean Corpuscular HGB Conc 33.9 g/dL (31.8-35.4); Mean Corpuscular Volume 88.4 fl (81-99); Mean Platelet Volume 9.9 fl (7.4-10.4); Monocytes # 0.7 K/mm3 (0.1-1.0); Neutrophils # 8.1 K/mm3 (1.8-7.8); Neutrophils % 68.6 % (37.0-80.0); Nucleated Red Blood Cells # 0 10^3/uL; Nucleated Red Blood Cells % 0 %; Platelet Count 376 K/mm3 (142-424); Red Cell Distribution Width 13.2 % (11.5-17.5); Red Cell Distribution Width-SD 42.6 fL; White Blood Count 11.8 K/mm3 (4.8-10.8)
[2025-04-26 16:16] LABS: Albumin Level 4.7 g/dl (3.5-5.0); Chloride 104 mmol/L (98-107); Potassium 3.8 mmoL/L (3.5-5.1); Sodium 139 mmol/L (136-145)
[2025-04-26 16:18] LABS: Alanine Aminotransferase 19 U/L (12-78); Anion Gap 13.8 mEq/L (5-15); Aspartate Amino Transferase 26 U/L (14-36); Bilirubin,Total 0.2 mg/dl (0.2-1.3); Blood Urea Nitrogen 11 mg/dl (7-17); Carbon Dioxide 25 mmol/L (22.0-30.0); Creatinine Clearance Estimated 126 mL/min (50-200); Estimated Glomerular Filt Rate 82 ml/min (>60); GFR (African American) 99 ML/MIN (>60)
[2025-04-26 16:19] LABS: Albumin/Globulin Ratio 1.2 (1.1-1.8); Alkaline Phosphatase 79 U/L (38-126); Calcium 9.1 mg/dl (8.4-10.2); Globulin 3.8 g/dL (1.3-3.2); Glucose 94 mg/dl (74-100); Lipase 65 U/L (23-300); Magnesium 2.4 mg/dl (1.6-2.3); Total Protein,Serum 8.5 g/dl (6.3-8.2)
[2025-04-26] MEDS: IOPAMIDOL-370 (76%);100ML BOTTLE 85 ML IV (16:23)
[2025-04-26] MEDS: SODIUM CHLORIDE 0.9% 10ML SYR (RAD ONLY) 10 ML IV (16:23)
[2025-04-26 16:24] LABS: Bacteria,Urine Trace /lpf; WBC,Urine Occasional #/hpf (0-3)
--- NOTE | 2025-04-26 16:27 | ED_ITS ---
<Statement entered by Sydnie Buchanan DO - 04/26/25 20:06> I was consulted by the PAOLA, and we discussed the complexity of the problems being addressed. I approved the treatment and management plan for this patient's care in the emergency department, thus performing a substantive portion of the medical decision making. Sydnie Buchanan DO Discharge Plan Disposition Patient Disposition: Home, Self-Care Prescriptions Prescriptions: No Action dicyclomine 20 mg tablet 20 mg PO TID Qty: 90 2RF bupropion HCl [Wellbutrin XL] 300 mg tablet extended release 24 hr 300 mg PO DAILY Qty: 30 1RF nitrofurantoin monohyd/m-cryst [Macrobid] 100 mg capsule 100 mg PO Q12H 5 Days Qty: 10 0RF Rx Instructions: must administer with a meal/food phenazopyridine [Pyridium] 200 mg tablet 200 mg PO Q8H 2 Days Qty: 6 0RF montelukast 10 mg tablet 10 mg PO HS Qty: 30 2RF cetirizine 10 mg tablet See Rx Instructions .ROUTE .COMPLEX Qty: 90 3RF Dose Instruction: TAKE 1 TABLET BY MOUTH ONCE DAILY NEEDED FOR ALLERGY SYMPTOMS Rx Instructions: TAKE 1 TABLET BY MOUTH ONCE DAILY NEEDED FOR ALLERGY SYMPTOMS Referrals Follow up/Referrals: Lawanda Lemons DO [Staff Physician, BAGGAGE SMASHER] - See instructions Micky Li MD [Primary Care Provider, Family Practice] - See instructions Clinical Impressions Clinical Impression: Abdominal pain, Constipation Instructions Patient Instructions: Constipation, Acute Abdominal Pain, DI for Abdominal Pain-Adult Print Language Print Language: Macanese Discharge ED Provider: Sydnie Buchanan General Adult HPI General Chief complaint: Abdominal Pain Stated complaint: pelvic pain Time Seen by Provider: 04/26/25 15:48 Mode of Arrival: Ambulatory Source of Information: Patient Description of Symptoms (Recalled from ER Triage Doc. by RN): PT TO THE ED WITH PELVIC PAIN AND URINARY PRESSURE. PT STATED SHE WAS RECENTLY TREATED FOR A UTI AND HAS FINISHED HER ANTIBIOTIC BUT STATED SHE IS NOW HAVING PELVIC PAIN THAT FEELS LIKE THERE IS A BALLOON FILLING UP INSIDE HER BUT WONT POP. History of Present Illness HPI narrative: 35-year-old female presents to the ED today for complaint of pain that feels like a balloon in her pelvis. She went last Saturday to see Gretel Mccollum at the [facility]. She says that she had positive white cells in her urine so she was treated with Macrobid for 5 days. She says she felt better. Saturday she had lots of pain in her pelvis again. No nausea or vomiting. She says the pain is in her low pelvis and it moves up. No nausea still no blood in her urine. No other associated signs or symptoms. Related Data Previous Rx's ?Medication ?Instructions ?Recorded bupropion HCl 300 mg 24 hr tablet, 300 mg PO DAILY #30 tabs 12/04/23 extended release (Wellbutrin XL) montelukast 10 mg tablet 10 mg PO HS Allergy symptoms #30 02/13/24 tabs cetirizine 10 mg tablet See Rx Instructions .Route 0 03/20/24 .COMPLEX #90 tabs dicyclomine 20 mg tablet 20 mg PO TID #90 tabs nitrofurantoin 100 mg PO Q12H 5 days #10 ca ps 04/19/25 monohydrate/macrocrystals 100 mg capsule (Macrobid) phenazopyridine 200 mg tablet 200 mg PO Q8H 2 days #6 tabs 04/19/25 (Pyridium) Allergies Allergy/AdvReac Type Severity Reaction Status Date / Time Sulfa (Sulfonamide Allergy Unknown R/T Verified 04/19/25 11:01 Antibiotics) (SULFA AUTOIMMUNE (SULFONAMIDE ANTIBIOTICS)) DISEASE guaifenesin (From Mucinex) Allergy Verified 04/19/25 11:[address] [facility] Disclaimer: The information contained in this section may have been updated after the patient was seen, as this information can be updated by other users. Medical History Chronic constipation Major depressive disorder Menorrhagia Depression HGSIL (high grade squamous intraepithelial lesion) on Pap smear of cervix Surgical History History of endometrial ablation H/O dilation and curettage History of hysteroscopy H/O LEEP Family History Other Anemia Asthma Diabetes Family history of cancer Social History Smoking Status: Current every day smoker second hand exposure: No alcohol intake: never substance use type: denies use current occupational status: other Travel in the last 8 weeks?: None household members: spouse and children housing: house number of children: 2 current occupation: [employer] current occupational exposures/hazards: No caffeine: Yes Have you lived/traveled outside [place] in past 30 days?: No Contact w/someone who lives/traveled outside US past 30 days?: No Exposure to someone with infectious disease in past 14 days?: No Do you have a fever (greater than 100.4 F or 38 C)?: No Have you tested positive for COVID-19?: No Exposed to someone with COVID-19 in past 14 days?: No Do you have a sore throat?: No Do you have a cough?: No Do you have any weakness?: No Do you have any diarrhea?: No Are you experiencing any unusual bleeding?: No Do you have any muscle aches/pain?: No Do you have any abdominal pain?: No Are you experiencing loss of taste or smell?: No Other Medical History Have you received the Flu Vaccine for this season: No Have you received the Pneumonia Vaccine: No ROS Obtained: Yes Systems reviewed as appropriate & no additional complaints except as documented Constitutional Constitutional: Reports as per HPI Physical Exam General General appearance: alert and in no apparent distress Head Head exam: atraumatic and normocephalic Eye Eye exam: Present normal appearance, PERRL and EOMI ENT ENT exam: Present normal exam, normal oropharynx and mucous membranes moist Neck Neck exam: Present full ROM and trachea midline Respiratory Respiratory exam: Present normal lung sounds bilaterally Cardiovascular Cardiovascular exam: Present regular rate, normal rhythm, normal heart sounds, +S1 and +S2 Abdominal Exam Abdominal exam: Present soft and normal bowel sounds Abdominal tenderness: Present LUQ, LLQ, suprapubic and moderate Extremities Exam Extremities exam: Present normal inspection, full ROM and normal capillary refill Neurological Exam Neurological exam: Present alert, oriented X3 and normal gait Skin Skin exam: Present warm, dry and intact Medical Decision Making Medical Records Screening: Per USPSTF and CDC recommendations, given the prevalence of disease in our region, it is our hospital?s policy to screen for HIV and viral Hepatitis for all patients aged 18 and over and those with ongoing risk factors. Gregorio Inquiry Pt receiving controlled substance: No Gregorio was queried for this patient: No Vital Signs: 04/26/25 13:56 04/26/25 18:33 04/26/25 18:45 Temperature 98 F 98.2 F Temperature Source Oral Pulse Rate 67 81 Pulse Rate [Left Radial] 98 H Respiratory Rate 17 18 20 Blood Pressure 127/76 122/72 Blood Pressure [Right Arm] 142/85 H Blood Pressure Mean 85 Blood Pressure Mean [Right Arm] 104 Blood Pressure Source [Right Arm] Automatic Cuff Blood Pressure Position [Right Arm] Sitting 02 Sat by Pulse Oximetry 100 95 Oxygen Delivery Method Room Air Room Air Lab Data Lab Results 04/26/25 14:04: Urine Color Yellow, Urine Appearance Clear, Urine pH 6.0, Ur Specific [place] 1.020, Urine Protein Negative, Urine Glucose (UA) Negative, Urine Ketones Negative, Urine Blood Negative, Urine Nitrate Negative, Urine Bilirubin Negative, Urine Urobilinogen 0.2, Ur Leukocyte Esterase Negative, Urine WBC Occasional, Ur Squamous Epith Cells 5-10, Urine Bacteria Trace, Urine HCG, Qual Negative 04/26/25 16:01: WBC 11.8 H, RBC 4.50, Hgb 13.5, Hct 39.8, MCV 88.4, MCH 30.0, MCHC 33.9, RDW 13.2, Plt Count 376, MPV 9.9, Neut % (Auto) 68.6, Lymph % (Auto) 22.6, [place] % (Auto) 6.0, Eos % (Auto) 2.1, Baso % (Auto) 0.5, Neut # (Auto) 8.1 H, Lymph # (Auto) 2.7, [place] # (Auto) 0.7, Eos # (Auto) 0.3, Baso # (Auto) 0.1, Sodium 139, Potassium 3.8, Chloride 104, Carbon Dioxide 25, Anion Gap 13.8, BUN 11, Creatinine 0.80, Estimated Creat Clear 126, Estimated GFR 82, Est GFR ( Amer) 99, Glucose 94, Calcium 9.1, Magnesium 2.4 H, Total Bilirubin 0.2, AST 26, ALT 19, Alkaline Phosphatase 79, Total Protein 8.5 H, Albumin 4.7, Globulin 3.8 H, Albumin/Globulin Ratio 1.2, Lipase 65, HCG, Quant < 2 04/26/25 16:01 04/26/25 16:01 Orders (Tests/Meds): ED MEDICATIONS Discontinued Medications Generic Name Dose Route Start Last Admin Trade Name Steve PRN Reason Stop Dose Admin Sodium Chloride 1,000 mls @ 999 mls/hr 04/26/25 15:55 04/26/25 16:06 Sod Chlor 0.9% 1000ml Bag IV 04/26/25 16:55 999 mls/hr .Q1H1M ONE Administration Iopamidol 85 ml 04/26/25 16:20 04/26/25 16:23 Iopamidol-370 (76%);100ml Bottle IV 04/26/25 16:21 75 ml ONCE ONE Administration Sodium Chloride 10 ml 04/26/25 16:22 04/26/25 16:23 Sodium Chloride 0.9% 10ml Syr (Rad Only) IV 05/26/25 16:21 10 ml NEEDED PRN Administration Maintain IV Site ORDERS Category Date Time Status CT abdomen pelvis w con Stat Cat Scan 04/26/25 15:55 Taken US transvaginal Stat Exams 04/26/25 16:30 Ordered CBC [Complete Blood Count Auto Diff] Stat Lab 04/26/25 16:01 Completed Comprehensive Metabolic Panel Stat Lab 04/26/25 16:01 Completed HCG,Quantitative Stat Lab 04/26/25 16:01 Completed Lipase Stat Lab 04/26/25 16:01 Completed Magnesium Stat Lab 04/26/25 16:01 Completed Urinalysis and Microscopic Stat Lab 04/26/25 14:04 Completed Urine , HCG Qual. Stat Lab 04/26/25 14:04 Completed Medical Decision Narrative: patient is a 35-year-old female presenting to the emergency department for evaluation of pelvic pain. Patient is hemodynamically stable and nontoxic- appearing upon arrival, afebrile. Differential diagnosis includes torsion, ovarian cyst, constipation, UTI, among others. Workup will be conducted with hematologic labs, specific imaging, provocative tests. Initial inventions include crystalloid bolus, analgesics. Initial workup reviewed by oh hematologic labs are remarkable for minimally elevated white count 11.8 otherwise unremarkable labs. Imaging informally interpreted by Dr. Buchanan and remarkable for nothing acute. Please see radiology report for formal imaging read. Dr. Buchanan read the ultrasound is negative. CT scan read as mild constipation. Patient to follow with PCP outpatient. Patient stable for discharge home. Critical Care Critical Care Time Critical Care Time: No
--- NOTE | 2025-04-26 16:27 | PC.NURSE ---
pt back from RAD
--- NOTE | 2025-04-26 16:30 | US_ITS ---
PROCEDURE INFORMATION: Exam: US Duplex Artery or Vein of the Abdominal and/or Reproductive Organs, Limited Ovaries Exam date and time: 04/26/2025 5:28 PM Age: 35 years old Clinical indication: Pelvic pain; Additional info: Rule out torsion TECHNIQUE: Imaging protocol: Real-time duplex ultrasound scan of the arterial or venous flow with guerrero scale, color Doppler flow and spectral waveform analysis with image documentation. Limited duplex exam focused on the ovaries. Duplex exam was performed to evaluate for torsion and other vascular conditions. COMPARISON: CT ABDOMEN PELVIS W CON 04/26/2025 4:22 PM FINDINGS: Right ovary/adnexa: The right ovary has normal color Doppler echoes. The right ovary has normal arterial spectral waveforms. Left ovary/adnexa: The left ovary has normal color Doppler echoes. The left ovary has normal arterial and venous spectral waveforms. IMPRESSION: Normal duplex of the ovaries. No evidence of ovarian torsion. PROCEDURE INFORMATION: Exam: US Pelvis, Transvaginal, Non-Obstetric Exam date and time: 04/26/2025 5:28 PM Age: 35 years old Clinical indication: Pelvic pain; Additional info: Rule out torsion TECHNIQUE: Imaging protocol: Real-time transvaginal pelvic (non-obstetric) ultrasound with image documentation. Transvaginal imaging was used for better evaluation of the endometrium, adnexa, and/or cervix. COMPARISON: US TRANSVAGINAL 01/02/2023 11:14 AM FINDINGS: Uterus: Uterus is normal. Endometrial stripe is normal. Right ovary/adnexa: Right ovary corpus luteum cysts measure up to 1.4 cm in diameter. Left ovary/adnexa: Normal. No mass. Normal ovarian blood flow on color Doppler. Urinary bladder: Urinary bladder is limited. Intraperitoneal space: No free fluid. IMPRESSION: No acute findings.
[2025-04-26 16:38] LABS: HCG,Quantitative < 2 mIU/ml (0-5.42)
--- NOTE | 2025-04-26 17:35 | PC.NURSE ---
pt to US via wheelchair
[2025-04-26 18:33] VITALS: BP 127/76; PULSE 67; RESP 18; O2SAT 95
[2025-04-26 18:45] VITALS: BP 122/72; PULSE 81; RESP 20; TEMP 36.8; O2SAT 100
== END 2025-04-26 18:46 | disposition home or self-care (01) ==
PROVIDERS: Nurse Practitioner; Emergency Provider Emergency Medicine; PCP Family Medicine
DX: R10.2 Pelvic and perineal pain (principal); K59.00 Constipation, unspecified; F17.210 Nicotine dependence, cigarettes, uncomplicated
CPT/HCPCS: 74177; 76830; 80053; 81001; 81025; 83690; 83735; 84702; 85025; 96360; 99284; J7030; Q9967

== ENCOUNTER 2025-06-24 08:20 | Outpatient (CLI) | payer BC, SELFPAY ==
[2025-06-24 14:49] LABS: Coronavirus 19, PCR Not Detected (NotDetected); Influenza A, PCR Not Detected (NotDetected); Influenza B, PCR Not Detected (NotDetected)
== END 2025-06-24 23:59 | disposition home or self-care (01) ==
LOC: LAB.DROPOF 06-25 13:49
PROVIDERS: PCP Student in an Organized Health Care Education/Training Program; Visit Provider Student in an Organized Health Care Education/Training Program
DX: J06.9 Acute upper respiratory infection, unspecified (principal)
CPT/HCPCS: 87631

== ENCOUNTER 2025-07-26 19:05 | Outpatient (CLI) | payer BC, SELFPAY | END 2025-07-26 23:59 | disposition home or self-care (01) | LOC: LAB.DROPOF 07-27 13:40 | PROVIDERS: PCP Nurse Practitioner; Visit Provider Nurse Practitioner | DX: N39.0 Urinary tract infection, site not specified (principal) | CPT/HCPCS: 87086; 87088 ==

== ENCOUNTER 2025-09-05 09:14 | Outpatient (CLI) | payer BC, SELFPAY ==
[2025-09-06 00:28] LABS: Coronavirus 19, PCR Not Detected (NotDetected); Influenza A, PCR Not Detected (NotDetected); Influenza B, PCR Not Detected (NotDetected)
--- OUTSIDE RECORDS SUMMARY | 2025-09-06 19:34 | XMS_ITS ---
Author Organization Unknown ENCOUNTERS Encounter Performer Location Date Diagnosis Diagnosis Status Pre Admit Saji Abreu [facility] [address] [place] [address] [id number] [facility] [address] [place] [address] [id number] DARIN Pre Admit [facility] [address] [place] [address] [id number] Emergency [facility] [address] [place] [address] [id number] DARIN Emergency [facility] [address] [place] [address] [id number] DARIN Pre Admit [facility] [address] [place] [address] [id number] Pre Admit [facility] [address] [place] [address] [phone] Emergency [facility] [address] [place] [address] [id number] DARIN Emergency [facility] [address] [place] [address] [id number] DARIN Emergency [facility] [address] [place] [address] [id number] DARIN Emergency [facility] (ED) [facility] [address] [place] [address] [phone] DARIN Emergency [facility] [address] [place] [address] [id number] DARIN Emergency [facility] [address] [place] [address] [id number] DARIN Emergency [facility] [address] [place] [address] [id number] DARIN Emergency [facility] [address] [facility] [address] [place] [address] [id number] LWBS Emergency [facility] [address] [facility] [address] [place] [address] [id number] DARIN Emergency [facility] [address] [facility] [address] [place] [address] [id number] DARIN Emergency [facility] [address] [facility] [address] [place] [address] [id number] DARIN Emergency [facility] [address] [facility] [address] [place] [address] [id number] DARIN Emergency [facility] [address] [facility] [address] [place] [address] [id number] DARIN Emergency Blayne Palacios [facility] [address] [facility] [address] [place] [address] [phone] DARIN *Note: Encounters from your own facility or health system may be excluded. Allergies, Adverse Reactions, Alerts Allergen Type Severity Identification Date guaifenesin drug allergy 0 [id number] Sulfa (Sulfonamide Antibiotics) drug allergy 0 [id number] Medications Name Date Quantity Days Supplied GPI Number
== END 2025-09-05 23:59 | disposition home or self-care (01) ==
LOC: LAB.DROPOF 09-06 19:33
PROVIDERS: PCP Family Medicine; Visit Provider Student in an Organized Health Care Education/Training Program
DX: J06.9 Acute upper respiratory infection, unspecified (principal)
CPT/HCPCS: 87631

== ENCOUNTER 2025-09-10 18:59 | Emergency (ER) | payer BC, SELFPAY ==
--- NOTE | 2025-09-10 19:18 | XR_ITS ---
PROCEDURE INFORMATION: Exam: XR Chest Exam date and time: 09/10/2025 7:34 PM Age: 35 years old Clinical indication: Shortness of breath; Additional info: Short of breath TECHNIQUE: Imaging protocol: Radiologic exam of the chest. Views: 1 view. COMPARISON: CT ABDOMEN PELVIS W CON 04/26/2025 4:22 PM FINDINGS: Lungs: No evidence of airspace infiltrate, noting that evaluation is limited by low lung volumes. Pleural spaces: No visible pleural effusion. No pneumothorax. Heart/Mediastinum: Cardiomediastinal silouhette is unremarkable. Bones/joints: No evidence of acute osseous abnormality. IMPRESSION: No evidence of acute cardiopulmonary process.
[2025-09-10 19:19] VITALS: BP 118/78; PULSE 71; RESP 18; TEMP 37.1; O2SAT 98; BMI 30.1
--- NOTE | 2025-09-10 19:29 | HMH.EDGENADL ---
Discharge Plan Disposition Patient Disposition: Home, Self-Care Prescriptions Prescriptions: New prednisone 20 mg tablet 20 mg PO BID 7 Days Qty: 14 0RF doxycycline hyclate 100 mg tablet 100 mg PO BID 7 Days Qty: 14 0RF albuterol sulfate [Ventolin HFA] 90 mcg/actuation HFA aerosol inhaler 1 inh inhalation Q4H PRN (Reason: shortness of breath or wheezing) Qty: 8.5 0RF No Action dicyclomine 20 mg tablet 20 mg PO TID Qty: 90 2RF bupropion HCl [Wellbutrin XL] 300 mg tablet extended release 24 hr 300 mg PO DAILY Qty: 30 1RF pseudoephedrine HCl 120 mg tablet extended release 120 mg PO Q12H PRN (Reason: nasal congestion) Qty: 20 0RF methylprednisolone 4 mg tablets,dose pack See Rx Instructions PO PER PKG DIR Qty: 21 0RF Rx Instructions: PO PER PKG DIR albuterol sulfate [Ventolin HFA] 90 mcg/actuation HFA aerosol inhaler 1 inh inhalation QID PRN (Reason: shortness of breath or wheezing) Qty: 6.7 0RF montelukast 10 mg tablet 10 mg PO HS Qty: 30 2RF cetirizine 10 mg tablet See Rx Instructions .ROUTE .COMPLEX Qty: 90 3RF Dose Instruction: TAKE 1 TABLET BY MOUTH ONCE DAILY NEEDED FOR ALLERGY SYMPTOMS Rx Instructions: TAKE 1 TABLET BY MOUTH ONCE DAILY NEEDED FOR ALLERGY SYMPTOMS Referrals Follow up/Referrals: Micky Li MD [Primary Care Provider, Family Practice] - See instructions Activity Restrictions/Add. Instructions Additional Instructions/Restrictions: Increase fluids and rest. Meds as directed. If you are not improving please see your PCP or return to the ED for further treatment and management Clinical Impressions Clinical Impression: Cough, Rhinovirus Instructions Patient Instructions: Cough, DI for Viral Syndrome Print Language Print Language: Zambian Discharge ED Provider: Veena Arana General Adult HPI <Savanah Camarillo (ED), [employer] GR[employer]ER OPERATOR - Last Filed: 09/10/25 21:40> General Chief complaint: Cough Stated complaint: has Rhinovirus since saturday not better Time Seen by Provider: 09/10/25 19:06 Mode of Arrival: Ambulatory Source of Information: Patient Description of Symptoms (Recalled from ER Triage Doc. by RN): Patient states she was diagnosed with rhinovirus saturday at the [facility]. States she has not improved. States she has had a productive cough with wheezing, and a fever for the past four days. Patient does not have a fever today. Patient is coughing. Patient describes what she calls a sinus headache. History of Present Illness HPI narrative: 35-year-old female presents to the ED today for complaint of continued cough that is productive and she is wheezing. She has had a fever last night but none today. She does have cold moments and heart movements. Patient does also have a headache. She has had some sinus drainage as well. No nausea, vomiting or diarrhea. No other symptoms. Related Data Previous Rx's ?Medication ?Instructions ?Recorded bupropion HCl 300 mg 24 hr tablet, 300 mg PO DAILY #30 tabs 12/04/23 extended release (Wellbutrin XL) montelukast 10 mg tablet 10 mg PO HS Allergy symptoms #30 02/13/24 tabs cetirizine 10 mg tablet See Rx Instructions .Route 03/20/24 .COMPLEX #90 tabs dicyclomine 20 mg tablet 20 mg PO TID #90 tabs 08/25/24 pseudoephedrine HCl 120 mg 120 mg PO Q12H PRN nasal 06/24/25 tablet,extended release congestion #20 tabs albuterol sulfate 90 mcg/actuation 1 inh inhalation QID PRN shortness 09/05/25 aerosol inhaler (Ventolin HFA) of breath or wheezing #6.7 grams methylprednisolone 4 mg tablets in See Rx Instructions PO PER PKG DIR 09/05/25 a dose pack #21 tabs albuterol sulfate 90 mcg/actuation 1 inh inhalation Q4H PRN shortness 09/10/25 aerosol inhaler (Ventolin HFA) of breath or wheezing #8.5 grams doxycycline hyclate 100 mg tablet 100 mg PO BID 7 days #14 tabs 09/10/25 prednisone 20 mg tablet 20 mg PO BID 7 days #14 tabs 09/10/25 Allergies Allergy/AdvReac Type Severity Reaction Status Date / Time Sulfa (Sulfonamide Allergy Unknown R/T Verified 09/05/25 08:46 Antibiotics) (SULFA AUTOIMMUNE (SULFONAMIDE ANTIBIOTICS)) DISEASE guaifenesin (From Mucinex) Allergy Unknown Verified 09/05/25 08:46 allergy reaction PFSH <Savanah Camarillo (ED), [employer]CH[employer] GRINDER OPERATOR - Last Filed: 09/10/25 21:40> [facility] Disclaimer: The information contained in this section may have been updated after the patient was seen, as this information can be updated by other users. Medical History Pelvic pressure in female Chronic constipation Major depressive disorder Menorrhagia Depression HGSIL (high grade squamous intraepithelial lesion) on Pap smear of cervix Surgical History History of endometrial ablation H/O dilation and curettage History of hysteroscopy H/O LEEP Family History Other Anemia Asthma Diabetes Family history of cancer Social History Smoking Status: Never smoker second hand exposure: No alcohol intake: never substance use type: denies use current occupational status: other Travel in the last 8 weeks?: None household members: spouse and children housing: house number of children: 2 current occupation: [employer] current occupational exposures/hazards: No caffeine: Yes Have you lived/traveled outside [place] in past 30 days?: No Contact w/someone who lives/traveled outside US past 30 days?: No Exposure to someone with infectious disease in past 14 days?: No Do you have a fever (greater than 100.4 F or 38 C)?: No Have you tested positive for COVID-19?: No Exposed to someone with COVID-19 in past 14 days?: No Do you have a sore throat?: No Do you have a cough?: No Do you have any weakness?: No Do you have any diarrhea?: No Are you experiencing any unusual bleeding?: No Do you have any muscle aches/pain?: No Do you have any abdominal pain?: No Are you experiencing loss of taste or smell?: No Other Medical History Have you received the Flu Vaccine for this season: No Have you received the Pneumonia Vaccine: No <Savanah Camarillo (ED), [employer] GR[employer]ER OPERATOR - Last Filed: 09/10/25 21:40> ROS Obtained: Yes Systems reviewed as appropriate & no additional complaints except as documented Physical Exam <Savanah Camarillo (ED), [employer]CH[employer] GRINDER OPERATOR - Last Filed: 09/10/25 21:40> General General appearance: alert Head Head exam: normocephalic Eye Eye exam: Present PERRL and EOMI ENT ENT exam: Present normal oropharynx and mucous membranes moist Neck Neck exam: Present full ROM and trachea midline Respiratory Respiratory exam: Present wheezes Cardiovascular Cardiovascular exam: Present regular rate, normal rhythm, normal heart sounds, +S1 and +S2 Abdominal Exam Abdominal exam: Present soft and normal bowel sounds Extremities Exam Extremities exam: Present full ROM and normal capillary refill Neurological Exam Neurological exam: Present alert and oriented X3 Skin Skin exam: Present warm and dry Medical Decision Making <Savanah Camarillo (ED), [employer] GRINDER OPERATOR - Last Filed: 09/10/25 21:40> Medical Records Screening: Per USPSTF and CDC recommendations, given the prevalence of disease in our region, it is our hospital?s policy to screen for HIV and viral Hepatitis for all patients aged 18 and over and those with ongoing risk factors. Gregorio Inquiry Pt receiving controlled substance: No Gregorio was queried for this patient: No Vital Signs: 09/10/25 19:19 09/10/25 19:46 09/10/25 19:46 Temperature 98.7 F Temperature Source Oral Pulse Rate 121 H 97 H Pulse Rate [Left] 71 Respiratory Rate 18 Blood Pressure Blood Pressure [Right Arm] 118/78 Blood Pressure Mean [Right Arm] 91 Blood Pressure Source Blood Pressure Position 02 Sat by Pulse Oximetry 98 Oxygen Delivery Method Room Air 09/10/25 20:00 09/10/25 21:00 09/10/25 21:39 Temperature 98.2 F Temperature Source Oral Pulse Rate 102 H 104 H 92 H Pulse Rate [Left] Respiratory Rate 18 18 Blood Pressure 135/74 120/66 122/67 Blood Pressure [Right Arm] Blood Pressure Mean [Right Arm] Blood Pressure Source Automatic Cuff Automatic Cuff Automatic Cuff Blood Pressure Position Sitting 02 Sat by Pulse Oximetry 98 94 L Oxygen Delivery Method Room Air Room Air Room Air Orders (Tests/Meds): ED MEDICATIONS Discontinued Medications Generic Name Dose Route Start Last Admin Trade Name Freq PRN Reason Stop Dose Admin Acetaminophen 1,000 mg 09/10/25 20:35 09/10/25 20:45 Acetaminophen 1,000mg/100ml Vial IV 09/10/25 20:36 Not Given ONCE ONE Acetaminophen 1,000 mg 09/10/25 20:41 09/10/25 20:43 Acetaminophen 500mg Tab PO 09/10/25 20:42 1,000 mg ONCE ONE Administration Albuterol/Ipratropium 9 ml 09/10/25 19:17 09/10/25 19:46 Ipratropium/Albuterol 3 Ml Neb IH 09/10/25 19:18 9 ml ONCE ONE Administration Ketorolac Tromethamine 30 mg 09/10/25 19:18 09/10/25 19:43 Ketorolac 30mg/Ml Vial IM 09/10/25 19:19 30 mg ONCE ONE Administration Methylprednisolone Sodium Succinate 125 mg 09/10/25 19:18 09/10/25 19:42 Methylprednisolone Sod Succ 125mg Vial IM 09/10/25 19:19 125 mg ONCE ONE Administration ORDERS Category Date Time Status Chest XR -- portable [XR chest portable] Stat Exams 09/10/25 19:18 Completed Medical Decision Narrative: patient is a 35-year-old female presenting to the emergency department for evaluation of cough and wheezing with his diagnosis of rhinovirus on Saturday. Patient is hemodynamically stable and nontoxic-appearing upon arrival, afebrile. Differential diagnosis includes viral illness, pneumonia, among others. Workup will be conducted with chest x-ray. Initial inventions include DuoNeb, dexamethasone and Toradol. Initial workup reviewed by me [hematologic labs are remarkable for:]. [Imaging informally interpreted by me and remarkable for:] [Formal imaging read remarkable for:] Upon repeat evaluation [patient's pain is improved, appears better perfused, appears the same, appears worse, etc.]. Due to this [additional interventions, patient is appropriate for discharge, patient requires admission, etc.]. <Veena Arana DO - Last Filed: 09/11/25 00:20> Vital Signs: 09/10/25 19:19 09/10/25 19:46 09/10/25 19:46 Temperature 98.7 F Temperature Source Oral Pulse Rate 121 H 97 H Pulse Rate [Left] 71 Respiratory Rate 18 Blood Pressure Blood Pressure [Right Arm] 118/78 Blood Pressure Mean [Right Arm] 91 Blood Pressure Source Blood Pressure Position 02 Sat by Pulse Oximetry 98 Oxygen Delivery Method Room Air 09/10/25 20:00 09/10/25 21:00 09/10/25 21:39 Temperature 98.2 F Temperature Source Oral Pulse Rate 102 H 104 H 92 H Pulse Rate [Left] Respiratory Rate 18 18 Blood Pressure 135/74 120/66 122/67 Blood Pressure [Right Arm] Blood Pressure Mean [Right Arm] Blood Pressure Source Automatic Cuff Automatic Cuff Automatic Cuff Blood Pressure Position Sitting 02 Sat by Pulse Oximetry 98 94 L Oxygen Delivery Method Room Air Room Air Room Air Lab Data Lab results reviewed: Yes I reviewed the patient's lab results. Orders (Tests/Meds): ED MEDICATIONS Discontinued Medications Generic Name Dose Route Start Last Admin Trade Name Steve PRN Reason Stop Dose Admin Acetaminophen 1,000 mg 09/10/25 20:35 09/10/25 20:45 Acetaminophen 1,000mg/100ml Vial IV 09/10/25 20:36 Not Given ONCE ONE Acetaminophen 1,000 mg 09/10/25 20:41 09/10/25 20:43 Acetaminophen 500mg Tab PO 09/10/25 20:42 1,000 mg ONCE ONE Administration Albuterol/Ipratropium 9 ml 09/10/25 19:17 09/10/25 19:46 Ipratropium/Albuterol 3 Ml Neb IH 09/10/25 19:18 9 ml ONCE ONE Administration Ketorolac Tromethamine 30 mg 09/10/25 19:18 09/10/25 19:43 Ketorolac 30mg/Ml Vial IM 09/10/25 19:19 30 mg ONCE ONE Administration Methylprednisolone Sodium Succinate 125 mg 09/10/25 19:18 09/10/25 19:42 Methylprednisolone Sod Succ 125mg Vial IM 09/10/25 19:19 125 mg ONCE ONE Administration ORDERS Category Date Time Status Chest XR -- portable [XR chest portable] Stat Exams 09/10/25 19:18 Completed Medical Decision Narrative: patient is a 35-year-old female presenting to the emergency department for evaluation of cough and wheezing with his diagnosis of rhinovirus on Saturday. Patient is hemodynamically stable and nontoxic-appearing upon arrival, afebrile. Differential diagnosis includes viral illness, pneumonia, among others. Workup will be conducted with chest x-ray. Initial inventions include DuoNeb, dexamethasone and Toradol. Chest x-ray was reviewed and interpreted by myself and showed no acute pulmonary process. Patient was given medications here in the emergency department and had symptomatic improvement. At this time, patient was discharged home in stable condition return precautions were discussed. Patient was otherwise not hypoxic not tachycardic patient was PERC negative low concern for other pulmonary process. Critical Care <Savanah Camarillo (ED), BLANCHARD GRINDER OPERATOR - Last Filed: 09/10/25 21:40> Critical Care Time Critical Care Time: No
[2025-09-10] MEDS: METHYLPREDNISOLONE SOD SUCC 125MG VIAL 125 MG IM (19:42)
[2025-09-10] MEDS: KETOROLAC 30MG/ML VIAL 30 MG IM (19:43)
[2025-09-10 19:46] VITALS: PULSE 121; PULSE 97
[2025-09-10] MEDS: IPRATROPIUM/ALBUTEROL 3 ML NEB 9 ML IH (19:46)
[2025-09-10 20:00] VITALS: BP 135/74; PULSE 102; RESP 18; O2SAT 98
[2025-09-10] MEDS: ACETAMINOPHEN 500MG TAB 1000 MG PO (20:43)
[2025-09-10 21:00] VITALS: BP 120/66; PULSE 104; O2SAT 94
[2025-09-10 21:39] VITALS: BP 122/67; PULSE 92; RESP 18; TEMP 36.8; O2SAT 95
== END 2025-09-10 21:44 | disposition home or self-care (01) ==
PROVIDERS: Emergency Provider Student in an Organized Health Care Education/Training Program; PCP Family Medicine
DX: R06.2 Wheezing (principal); R51.9 Headache, unspecified; R05.1 Acute cough; B34.8 Other viral infections of unspecified site
CPT/HCPCS: 71045; 96372; 99283; 99284; J1885; J2919

== ENCOUNTER 2025-09-19 07:42 | Emergency (ER) | payer BC, SELFPAY ==
[2025-09-19] VITALS (10 sets, daily range): BP systolic 106–134; BP diastolic 67–82; PULSE 71–104; RESP 20; TEMP 36.7–36.9; O2SAT 97–100; BMI 31.8
--- NOTE | 2025-09-19 07:55 | XR_ITS ---
PROCEDURE INFORMATION: Exam: XR Pelvis Exam date and time: 09/19/2025 8:47 AM Age: 35 years old Clinical indication: Pelvic pain; Additional info: Pain/tender over bilateral si joints TECHNIQUE: Imaging protocol: Radiologic exam of the pelvis. Views: 1 or 2 view. COMPARISON: CT ABDOMEN PELVIS W CON 04/26/2025 4:22 PM FINDINGS: Bones/joints: Both hips are normal in appearance. The sacrum, iliac bones and pubic rami are unremarkable. No radiographic evidence of sacroiliitis. Soft tissues: Unremarkable. IMPRESSION: No acute findings.
--- NOTE | 2025-09-19 07:57 | HMH.EDGENADL ---
Discharge Plan Disposition Patient Disposition: Home, Self-Care Prescriptions Prescriptions: New methocarbamol 500 mg tablet 500 mg PO Q8H PRN (Reason: muscle pain) Qty: 30 0RF lidocaine 5 % adhesive patch,medicated 1 patch topical DAILY Qty: 15 0RF Rx Instructions: leave on most painful area for up to 12 hrs No Action dicyclomine 20 mg tablet 20 mg PO TID Qty: 90 2RF bupropion HCl [Wellbutrin XL] 300 mg tablet extended release 24 hr 300 mg PO DAILY Qty: 30 1RF pseudoephedrine HCl 120 mg tablet extended release 120 mg PO Q12H PRN (Reason: nasal congestion) Qty: 20 0RF methylprednisolone 4 mg tablets,dose pack See Rx Instructions PO PER PKG DIR Qty: 21 0RF Rx Instructions: PO PER PKG DIR albuterol sulfate [Ventolin HFA] 90 mcg/actuation HFA aerosol inhaler 1 inh inhalation QID PRN (Reason: shortness of breath or wheezing) Qty: 6.7 0RF montelukast 10 mg tablet 10 mg PO HS Qty: 30 2RF cetirizine 10 mg tablet See Rx Instructions .ROUTE .COMPLEX Qty: 90 3RF Dose Instruction: TAKE 1 TABLET BY MOUTH ONCE DAILY NEEDED FOR ALLERGY SYMPTOMS Rx Instructions: TAKE 1 TABLET BY MOUTH ONCE DAILY NEEDED FOR ALLERGY SYMPTOMS prednisone 20 mg tablet 20 mg PO BID 7 Days Qty: 14 0RF doxycycline hyclate 100 mg tablet 100 mg PO BID 7 Days Qty: 14 0RF albuterol sulfate [Ventolin HFA] 90 mcg/actuation HFA aerosol inhaler 1 inh inhalation Q4H PRN (Reason: shortness of breath or wheezing) Qty: 8.5 0RF Referrals Follow up/Referrals: Micky Li MD [Primary Care Provider, Family Practice] - See instructions Activity Restrictions/Add. Instructions Additional Instructions/Restrictions: Your workup today showed no bony issues and no evidence of infection. You are being prescribed a muscle relaxer as well as lidocaine patches. Take these as prescribed. You can also take Tylenol and ibuprofen every 6 hours as needed to help with your symptoms. Follow-up with your primary care physician if symptoms do not improve. If you develop any new or worsening symptoms, or if you become concerned for your help for any reason, return to the emergency department for evaluation Clinical Impressions Clinical Impression: Back pain Print Language Print Language: Swazi Discharge ED Provider: Mejia Lema General Adult HPI General Chief complaint: PAIN Stated complaint: Pain in both legs Time Seen by Provider: 09/19/25 07:49 History of Present Illness HPI narrative: Horace Mack is a 35F with a history of major depression, IBS, LEEP procedure who presents to the emergency department for complaints of back pain that radiates to her bilateral thighs and knees. Patient states that she was diagnosed with a viral illness on the seventh of this month and over the last 2 days has had pain on both sides of her lower back that radiates to bilateral thighs and knees. She states that makes it difficult to walk. She denies any swelling in her legs. She denies any history of blood clots. She denies any dysuria, hematuria, numbness or tingling. She denies any changes in her bowel habits. She denies any trauma or falls. She denies any fevers. She does not drink alcohol, use tobacco, or use recreational drugs. Related Data Previous Rx's ?Medication ?Instructions ?Recorded bupropion HCl 300 mg 24 hr tablet, 300 mg PO DAILY #30 tabs 12/04/23 extended release (Wellbutrin XL) montelukast 10 mg tablet 10 mg PO HS Allergy symptoms #30 02/13/24 tabs cetirizine 10 mg tablet See Rx Instructions .Route 03/20/24 .COMPLEX #90 tabs dicyclomine 20 mg tablet 20 mg PO TID #90 tabs 08/25/24 pseudoephedrine HCl 120 mg 120 mg PO Q12H PRN nasal 06/24/25 tablet,extended release congestion #20 tabs albuterol sulfate 90 mcg/actuation 1 inh inhalation QID PRN shortness 09/05/25 aerosol inhaler (Ventolin HFA) of breath or wheezing #6.7 grams methylprednisolone 4 mg tablets in See Rx Instructions PO PER PKG DIR 09/05/25 a dose pack #21 tabs albuterol sulfate 90 mcg/actuation 1 inh inhalation Q4H PRN shortness 09/10/25 aerosol inhaler (Ventolin HFA) of breath or wheezing #8.5 grams doxycycline hyclate 100 mg tablet 100 mg PO BID 7 days #14 tabs 09/10/25 prednisone 20 mg tablet 20 mg PO BID 7 days #14 tabs 09/10/25 lidocaine 5 % topical patch 1 patch topical DAILY #15 ea 09/19/25 methocarbamol 500 mg tablet 500 mg PO Q8H PRN muscle pain #30 09/19/25 tabs Allergies Allergy/AdvReac Type Severity Reaction Status Date / Time Sulfa (Sulfonamide Allergy Unknown R/T Verified 09/05/25 08:46 Antibiotics) (SULFA AUTOIMMUNE (SULFONAMIDE ANTIBIOTICS)) DISEASE guaifenesin (From Mucinex) Allergy Unknown Verified 09/05/25 08:46 allergy reaction [facility] Disclaimer: The information contained in this section may have been updated after the patient was seen, as this information can be updated by other users. Medical History Pelvic pressure in female Chronic constipation Major depressive disorder Menorrhagia Depression HGSIL (high grade squamous intraepithelial lesion) on Pap smear of cervix Surgical History History of endometrial ablation H/O dilation and curettage History of hysteroscopy H/O LEEP Family History Other Anemia Asthma Diabetes Family history of cancer Social History Smoking Status: Never smoker second hand exposure: No alcohol intake: never substance use type: denies use current occupational status: other Travel in the last 8 weeks?: None household members: spouse and children housing: house number of children: 2 current occupation: [employer] current occupational exposures/hazards: No caffeine: Yes Have you lived/traveled outside [place] in past 30 days?: No Contact w/someone who lives/traveled outside [place] past 30 days?: No Exposure to someone with infectious disease in past 14 days?: No Do you have a fever (greater than 100.4 F or 38 C)?: No Have you tested positive for COVID-19?: No Exposed to someone with COVID-19 in past 14 days?: No Do you have a sore throat?: No Do you have a cough?: No Do you have any weakness?: No Do you have any diarrhea?: No Are you experiencing any unusual bleeding?: No Do you have any muscle aches/pain?: No Do you have any abdominal pain?: No Are you experiencing loss of taste or smell?: No Other Medical History Have you received the Flu Vaccine for this season: No Have you received the Pneumonia Vaccine: No ROS Obtained: Yes Systems reviewed as appropriate & no additional complaints except as documented Physical Exam General General appearance: alert and in no apparent distress Head Head exam: atraumatic Eye Eye exam: Present normal appearance ENT ENT exam: Present normal external ear exam Neck Neck exam: Present full ROM Chest Chest inspection: Present symmetric chest wall rise Respiratory Respiratory exam: Present normal lung sounds bilaterally; Absent respiratory distress, wheezes or stridor Cardiovascular Cardiovascular exam: Present regular rate and normal rhythm Abdominal Exam Abdominal exam: Present soft; Absent tenderness or guarding Extremities Exam Extremities exam: Present normal inspection Back Exam Back exam: Present normal inspection and paraspinal tenderness (Bilateral lumbar paraspinal tenderness as well as tenderness over the bilateral SI joints); Absent vertebral tenderness, straight leg raise (R) or straight leg raise (L) Neurological Exam Neurological exam: Present alert and oriented X3 Psychiatric Psychiatric exam: Present normal affect Skin Skin exam: Present warm and dry Medical Decision Making Medical Records Screening: Per USPSTF and CDC recommendations, given the prevalence of disease in our region, it is our hospital?s policy to screen for HIV and viral Hepatitis for all patients aged 18 and over and those with ongoing risk factors. Gregorio Inquiry Pt receiving controlled substance: No Vital Signs: 09/19/25 07:44 09/19/25 08:00 09/19/25 08:20 Temperature 98.5 F Temperature Source Oral Pulse Rate 95 H 80 Pulse Rate [Left Radial] 104 H Respiratory Rate 20 Blood Pressure 112/74 110/77 Blood Pressure [Right Arm] 134/82 Blood Pressure Mean [Right Arm] 99 02 Sat by Pulse Oximetry 97 97 98 Oxygen Delivery Method Room Air Room Air Room Air 09/19/25 08:30 09/19/25 08:40 09/19/25 08:50 Temperature Temperature Source Pulse Rate 80 75 77 Pulse Rate [Left Radial] Respiratory Rate Blood Pressure 110/73 107/75 L 117/69 Blood Pressure [Right Arm] Blood Pressure Mean [Right Arm] 02 Sat by Pulse Oximetry 97 98 100 Oxygen Delivery Method Room Air Room Air Room Air 09/19/25 09:00 09/19/25 09:10 09/19/25 09:30 Temperature Temperature Source Pulse Rate 71 74 74 Pulse Rate [Left Radial] Respiratory Rate Blood Pressure 108/72 L 107/67 L 107/70 L Blood Pressure [Right Arm] Blood Pressure Mean [Right Arm] 02 Sat by Pulse Oximetry 98 98 98 Oxygen Delivery Method Room Air Room Air Room Air 09/19/25 10:08 Temperature 98.1 F Temperature Source Pulse Rate 88 Pulse Rate [Left Radial] Respiratory Rate 20 Blood Pressure 106/72 L Blood Pressure [Right Arm] Blood Pressure Mean [Right Arm] 02 Sat by Pulse Oximetry Oxygen Delivery Method Room Air Lab Data Lab Results 09/19/25 07:45: Urine Color Yellow, Urine Appearance Clear, Urine pH 6.0, Ur Specific Stanley 1.015, Urine Protein Negative, Urine Glucose (UA) Negative, Urine Ketones Negative, Urine Blood Negative, Urine Nitrate Negative, Urine Bilirubin Negative, Urine Urobilinogen 0.2, Ur Leukocyte Esterase Negative, Urine RBC None, Urine WBC Occasional, Ur Squamous Epith Cells 5-10, Urine Bacteria Trace, Urine HCG, Qual Negative 09/19/25 08:08: WBC 14.4 H, RBC 4.27, Hgb 12.7, Hct 37.8, MCV 88.5, MCH 29.7, MCHC 33.6, RDW 13.3, Plt Count 329, MPV 9.9, Neut % (Auto) 48.9, Lymph % (Auto) 40.8, [place] % (Auto) 7.6, Eos % (Auto) 0.6, Baso % (Auto) 0.3, Neut # (Auto) 7.0, Lymph # (Auto) 5.9 H, [place] # (Auto) 1.1 H, Eos # (Auto) 0.1, Baso # (Auto) 0.1, Total Counted 100, Neutrophils % (Manual) 45, Lymphocytes % (Manual) 47, Monocytes % (Manual) 8, Platelet Estimate Normal, RBC Morphology Normal, Sodium 137, Potassium 3.7, Chloride 99, Carbon Dioxide 31 H, Anion Gap 10.7, BUN 26 H, Creatinine 0.90, Estimated Creat Clear 114, Estimated GFR 72, Est GFR ( Amer) 87, Glucose 86, Lactate 0.6 L, Calcium 8.7, Total Bilirubin 0.3, AST 31, ALT 26, Alkaline Phosphatase 91, Total Creatine Kinase 24 L, Total Protein 7.2, Albumin 4.1, Globulin 3.1, Albumin/Globulin Ratio 1.3, Lipase 78 09/19/25 08:08 09/19/25 08:08 Orders (Tests/Meds): ED MEDICATIONS Discontinued Medications Generic Name Dose Route Start Last Admin Trade Name Steve PRN Reason Stop Dose Admin Acetaminophen 1,000 mg 09/19/25 07:55 09/19/25 08:25 Acetaminophen 500mg Tab PO 09/19/25 07:56 1,000 mg ONCE ONE Administration Lidocaine 1 each 09/19/25 07:55 09/19/25 08:25 Lidocaine 5% Transdermal Patch TD 09/19/25 07:56 1 each ONCE ONE Administration Methocarbamol 500 mg 09/19/25 07:57 09/19/25 08:26 Methocarbamol 500mg Tablet PO 09/19/25 07:58 500 mg ONCE ONE Administration ORDERS Category Date Time Status Pelvis XR 1-2 views [XR pelvis 1-2V] Stat Exams 09/19/25 07:55 Completed CBC w/Auto Diff [Complete Blood Count Auto Diff] Stat Lab 09/19/25 08:08 Completed CK [Creatine Kinase] Stat Lab 09/19/25 08:08 Completed CMP [Comprehensive Metabolic Panel] Stat Lab 09/19/25 08:08 Completed Lactic Acid Stat Lab 09/19/25 08:08 Completed Lipase Stat Lab 09/19/25 08:08 Completed UA [Urinalysis and Microscopic] Stat Lab 09/19/25 07:45 Completed Urine , HCG Qual. Stat Lab 09/19/25 07:45 Completed Medical Decision Narrative: Horace aMck is a 35F with a history of major depression, IBS, LEEP procedure who presents to the emergency department for complaints of back pain that radiates to her bilateral thighs and knees. Patient states that she was diagnosed with a viral illness on the seventh of this month and over the last 2 days has had pain on both sides of her lower back that radiates to bilateral thighs and knees. She states that makes it difficult to walk. She denies any swelling in her legs. She denies any history of blood clots. She denies any dysuria, hematuria, numbness or tingling. She denies any changes in her bowel habits. She denies any trauma or falls. She denies any fevers. She does not drink alcohol, use tobacco, or use recreational drugs. On arrival, patient is hemodynamically stable, afebrile, heart rate within normal image, normotensive, maintaining appropriate oxygen saturation on room air. Physical exam, as stated above, revealed an overall nontoxic-appearing female in no distress. She has negative straight leg test bilaterally. Sensation and strength to the bilateral lower extremities are intact. Pulses are intact to the bilateral lower extremities. She has tenderness over the bilateral lumbar paraspinal muscles and bilateral SI joint tenderness. No midline tenderness or step-offs. I do not appreciate any swelling to the bilateral legs. Patient states that she has not had any calf swelling or pain. Differential diagnosis includes, but is not limited to: Sacroiliitis, rhabdomyolysis, urinary tract infection, electrolyte derangement, lumbar radiculopathy, low concern for DVT And no red flag symptoms for cauda equina. Patient states that she took ibuprofen just prior to arrival. Will administer 1000 mg Tylenol, lidocaine patch and 500 mg of methocarbamol. Workup in the emergency department included: Pelvis x-ray, CBC, CMP, CK, lactate, urinalysis, urine test X-ray interpreted by me personally. No acute fracture or malalignment. No evidence of sacroiliitis on plain films. See radiology report for details. Laboratory studies show leukocytosis without neutrophilia. She has been on steroids recently and I do feel this is likely related to the steroid use and less likely infectious. Electrolytes within normal limits. Anion gap normal at 10.7. BUN mildly elevated at 26 but no DRAKE. Lactate unremarkable. Liver enzymes bili within normal limits. CK low normal at 24. Lipase 78. Urinalysis without blood or evidence of infection. Negative test. On reassessment, patient is sleeping comfortably. She states that she has had improvement of her symptoms. Do feel that she could be experiencing myalgias due to her recent respiratory illness or muscle strain or arthralgias and recommended Tylenol, ibuprofen and will prescribe Robaxin as well as lidocaine patches to treat her symptoms. I did encourage her to follow-up with her primary care doctor. Return precautions were given. All questions were answered. She demonstrated understanding and was in agreement this plan. She was then discharged from emergency department in stable condition. Critical Care Critical Care Time Critical Care Time: No
[2025-09-19] MEDS: ACETAMINOPHEN 500MG TAB 1000 MG PO (08:25)
[2025-09-19] MEDS: LIDOCAINE 5% TRANSDERMAL PATCH 1 EACH TD (08:25)
[2025-09-19] MEDS: METHOCARBAMOL 500MG TABLET 500 MG PO (08:26)
[2025-09-19 08:33] LABS: Microscopic, Urine URINE MICROSCOPIC (MICROSCOPIC)
[2025-09-19 08:34] LABS: Bilirubin,Urine Negative (Negative); Color,Urine YELLOW (Yellow); Glucose,Urine (UA) Negative (Negative); Ketones,Urine Negative (Negative); Leukocyte Esterase,Urine Negative (Negative); PH,Urine 6.0 (5.0-8.5); Protein,Urine Negative (Negative); Specific Gravity, Urine 1.015 (1.005-1.030); Urobilinogen,Urine 0.2 EU/dl (0.2)
[2025-09-19 08:36] LABS: Hematocrit 37.8 % (37.0-47.0); Hemoglobin 12.7 g/dL (12.2-16.2); Immature Granulocytes % 1.8 %; Mean Corpuscular HGB Conc 33.6 g/dL (31.8-35.4); Mean Corpuscular Hemoglobin 29.7 pg (27.0-31.2); Mean Corpuscular Volume 88.5 fl (81-99); Nucleated Red Blood Cells % 0 %; Platelet Count 329 K/mm3 (142-424); Red Blood Count 4.27 M/mm3 (4.20-5.40); Red Cell Distribution Width-SD 43.5 fL; White Blood Count 14.4 K/mm3 (4.8-10.8)
[2025-09-19 08:39] LABS: Urine Pregnancy, HCG Qual. Negative (Negative)
[2025-09-19 08:42] LABS: Bacteria,Urine Trace /lpf; WBC,Urine Occasional #/hpf (0-3)
[2025-09-19 08:52] LABS: Albumin Level 4.1 g/dl (3.5-5.0); Chloride 99 mmol/L (98-107); Potassium 3.7 mmoL/L (3.5-5.1); Sodium 137 mmol/L (136-145)
[2025-09-19 08:55] LABS: Alanine Aminotransferase 26 U/L (12-78); Albumin/Globulin Ratio 1.3 (1.1-1.8); Alkaline Phosphatase 91 U/L (38-126); Anion Gap 10.7 mEq/L (5-15); Aspartate Amino Transferase 31 U/L (14-36); Bilirubin,Total 0.3 mg/dl (0.2-1.3); Blood Urea Nitrogen 26 mg/dl (7-17); Calcium 8.7 mg/dl (8.4-10.2); Carbon Dioxide 31 mmol/L (22.0-30.0); Creatine Kinase 24 U/L (30-135); Creatinine Clearance Estimated 114 mL/min (50-200); Creatinine,Serum 0.90 mg/dl (0.52-1.04); Estimated Glomerular Filt Rate 72 ml/min (>60); GFR (African American) 87 ML/MIN (>60); Globulin 3.1 g/dL (1.3-3.2); Glucose 86 mg/dl (74-100); Lipase 78 U/L (23-300); Total Protein,Serum 7.2 g/dl (6.3-8.2)
[2025-09-19 09:02] LABS: RBC Morphology Normal; Total Cells Counted 100
== END 2025-09-19 10:12 | disposition home or self-care (01) ==
PROVIDERS: Emergency Provider Student in an Organized Health Care Education/Training Program; PCP Family Medicine
DX: M54.9 Dorsalgia, unspecified (principal)
CPT/HCPCS: 72170; 80053; 81001; 81025; 82550; 83605; 83690; 85007; 85025; 85027; 99284; 99285

== ENCOUNTER 2025-10-16 12:15 | Emergency (ER) | payer BC, SELFPAY ==
[2025-10-16 12:23] VITALS: BP 149/81; PULSE 89; RESP 16; TEMP 36.8; O2SAT 100; BMI 30.1
--- NOTE | 2025-10-16 13:36 | ED_ITS ---
<Statement entered by Julito Crawley MD - 10/16/25 15:41> I was consulted by the PAOLA, and we discussed the complexity of the problems being addressed. I approved the treatment and management plan for this patient's care in the emergency department, thus performing a substantive portion of the medical decision making. Julito Crwaley MD, VIJI, FACEP Discharge Plan Disposition Patient Disposition: Home, Self-Care Condition: Good Prescriptions Prescriptions: No Action dicyclomine 20 mg tablet 20 mg PO TID Qty: 90 2RF montelukast 10 mg tablet 10 mg PO HS Qty: 30 2RF cetirizine 10 mg tablet See Rx Instructions .ROUTE .COMPLEX Qty: 90 3RF Dose Instruction: TAKE 1 TABLET BY MOUTH ONCE DAILY NEEDED FOR ALLERGY SYMPTOMS Rx Instructions: TAKE 1 TABLET BY MOUTH ONCE DAILY NEEDED FOR ALLERGY SYMPTOMS prednisone 20 mg tablet 20 mg PO BID 7 Days Qty: 14 0RF albuterol sulfate [Ventolin HFA] 90 mcg/actuation HFA aerosol inhaler 1 inh inhalation Q4H PRN (Reason: shortness of breath or wheezing) Qty: 8.5 0RF Referrals Follow up/Referrals: Micky Li MD [Primary Care Provider, Family Practice] - See instructions Activity Restrictions/Add. Instructions Additional Instructions/Restrictions: Please return to the emergency department any worsening signs or symptoms. Please follow-up with core manager or eye doctor in the upcoming days/weeks. Please continue to take all medication as prescribed. Clinical Impressions Clinical Impression: Scotoma Instructions Patient Instructions: DI for Migraine, DI for Visual Field Disturbances Print Language Print Language: [place] Discharge ED Provider: Julito Crawley General Adult HPI General Chief complaint: Headache Stated complaint: impaired vision with halos Time Seen by Provider: 10/16/25 12:42 Mode of Arrival: Ambulatory Source of Information: Patient Description of Symptoms (Recalled from ER Triage Doc. by RN): Patient states about an hour ago when she woke up she was having what she describes as rainbow vision in both of her eyes, with left eye possibly being a little worse than left. Patient states she does have a history of migraine headaches. Patient denies any other neuro deficits. History of Present Illness HPI narrative: 35-year-old female presents to the emergency department with a left eye complaint, patient states that around 11 AM, she had an episode of what she describes as flashes floaters and squiggly lines , with blurry vision, it looks like that she was looking through a window with rain , she is unsure if it affected both eyes, she is quite sure that it was only the left eye that is affected, lasted for around 15 minutes, and is now completely resolved, patient denies any headache lightheadedness presyncopal or syncopal event, denies any fever chills chest pain shortness of breath nausea vomiting constipation diarrhea, denies any other visual disturbance at this time, denies any ocular trauma, denies any eye pain, no foreign body sensation or irritation denies any urinary symptomatology, patient has other past medical history consistent with asthma, CLAUDINE, degenerative disease, MDD, previous eye surgery with sounds like chalazion/hordeolum removed as a child, on the left eye, patient denies any alcohol tobacco or drug use, patient is recently getting over what she states was a rhinovirus , several days ago. Initial triage vitals are grossly unremarkable. Please note that above description of symptoms, in this electronic medical record under categorization of recalled from ER triage doctor by RN are reflective of an initial nursing assessment, however, is not reflective of my full history and physical exam that was personally taken and clarified. Consequentially, this preceding description of symptoms, which may include the patient's categorized chief complaint in the EMR, do not reflect my personal clinical impression, and the ultimate description of history of present illness and patient stated complaints should be deferred to this section of the note. Unless stated otherwise or congruent with this section of the note, additional signs, symptoms, or incongruence should be interpreted as inaccurate with my clinical impression. Onset (ago): hour(s) Related Data Previous Rx's ?Medication ?Instructions ?Recorded montelukast 10 mg tablet 10 mg PO HS Allergy symptoms #30 02/13/24 tabs cetirizine 10 mg tablet See Rx Instructions .Route 0 03/20/24 .COMPLEX #90 tabs dicyclomine 20 mg tablet 20 mg PO TID #90 tabs albuterol sulfate 90 mcg/actuation 1 inh inhalation Q4 H PRN shortness 09/10/25 aerosol inhaler (Ventolin HFA) of breath or wheezing # 8.5 grams prednisone 20 mg tablet 20 mg PO BID 7 days #14 tabs 09/10/25 Allergies Allergy/AdvReac Type Severity Reaction Status Date / Time Sulfa (Sulfonamide Allergy Unknown R/T Verified 09/29/25 16:24 Antibiotics) (SULFA AUTOIMMUNE (SULFONAMIDE ANTIBIOTICS)) DISEASE guaifenesin (From Mucinex) Allergy Unknown Verified 09/29/25 16:24 allergy reaction [facility] Disclaimer: The information contained in this section may have been updated after the patient was seen, as this information can be updated by other users. Medical History Pelvic pressure in female Chronic constipation Major depressive disorder Menorrhagia Depression HGSIL (high grade squamous intraepithelial lesion) on Pap smear of cervix Surgical History History of endometrial ablation H/O dilation and curettage History of hysteroscopy H/O LEEP Family History Other Anemia Asthma Diabetes Family history of cancer Social History Smoking Status: Never smoker second hand exposure: No alcohol intake: never substance use type: denies use current occupational status: other Travel in the last 8 weeks?: None household members: spouse and children housing: house number of children: 2 current occupation: [employer] current occupational exposures/hazards: No caffeine: Yes Have you lived/traveled outside [place] in past 30 days?: No Contact w/someone who lives/traveled outside [place] past 30 days?: No Exposure to someone with infectious disease in past 14 days?: No Do you have a fever (greater than 100.4 F or 38 C)?: No Have you tested positive for COVID-19?: No Exposed to someone with COVID-19 in past 14 days?: No Do you have a sore throat?: No Do you have a cough?: No Do you have any weakness?: No Do you have any diarrhea?: No Are you experiencing any unusual bleeding?: No Do you have any muscle aches/pain?: No Do you have any abdominal pain?: No Are you experiencing loss of taste or smell?: No Other Medical History Have you received the Flu Vaccine for this season: No Have you received the Pneumonia Vaccine: No ROS Obtained: Yes All systems reviewed & no additional complaints except as documented Physical Exam General General appearance: alert and in no apparent distress Head Head exam: atraumatic and normocephalic Eye Eye exam: Present PERRL and EOMI ENT ENT exam: Present mucous membranes moist Neck Neck exam: Present normal inspection Chest Chest inspection: Present normal inspection and symmetric chest wall rise Respiratory Respiratory exam: Present normal lung sounds bilaterally; Absent respiratory distress Cardiovascular Cardiovascular exam: Present regular rate and normal rhythm Abdominal Exam Abdominal exam: Present soft; Absent tenderness Extremities Exam Extremities exam: Present normal inspection Neurological Exam Neurological exam: Present alert, oriented X3 and other (5 out of 5 strength in bilateral lower and upper extremities, negative ituhle-ys-tthw test, good visual acuity, no gross sensation deficit or no other neurological focal deficit noted) Psychiatric Psychiatric exam: Present normal affect Skin Skin exam: Present warm and dry Medical Decision Making Medical Records Medical records reviewed: Yes I reviewed the patient's medical records. Screening: Per USPSTF and CDC recommendations, given the prevalence of disease in our region, it is our hospital?s policy to screen for HIV and viral Hepatitis for all patients aged 18 and over and those with ongoing risk factors. Gregorio Inquiry Pt receiving controlled substance: No Gregorio was queried for this patient: No Vital Signs: 10/16/25 12:23 Temperature 98.2 F Temperature Source Oral Pulse Rate [Left Brachial] 89 Respiratory Rate 16 Blood Pressure [Left Arm] 149/81 H Blood Pressure Mean [Left Arm] 103 Blood Pressure Source [Left Arm] Automatic Cuff Blood Pressure Position [Left Arm] Sitting 02 Sat by Pulse Oximetry 100 Oxygen Delivery Method Room Air Lab Data Lab results reviewed: Yes I reviewed the patient's lab results. Lab Results 10/16/25 13:53: WBC 8.9, RBC 4.37, Hgb 13.1, Hct 38.4, MCV 87.9, MCH 30.0, MCHC 34.1, RDW 13.5, Plt Count 366, MPV 10.1, Neut % (Auto) 63.6, Lymph % (Auto) 22.0, Wheeler % (Auto) 8.4, Eos % (Auto) 4.9, Baso % (Auto) 0.8, Neut # (Auto) 5.7, Lymph # (Auto) 2.0, Wheeler # (Auto) 0.8, Eos # (Auto) 0.4, Baso # (Auto) 0.1, Sodium 140, Potassium 4.1, Chloride 105, Carbon Dioxide 23, Anion Gap 16.1 H, BUN 11, Creatinine 0.80, Estimated Creat Clear 121, Estimated GFR 82, Est GFR ( Amer) 99, Glucose 82, Calcium 9.3, Total Bilirubin 0.4, AST 22, ALT 21, Alkaline Phosphatase 74, Total Protein 7.4, Albumin 4.5, Globulin 2.9, Albumin/Globulin Ratio 1.6, Serum HCG, Qual Negative 10/16/25 13:53 10/16/25 13:53 Orders (Tests/Meds): ORDERS Category Date Time Status CT angio head Stat Cat Scan 10/16/25 13:[address] angio neck Stat Cat Scan 10/16/25 13:[address] head/brain wo con Stat Cat Scan 10/16/25 13:43 Stop Req POCUS Point of Care (ER Only) Stat Exams 10/16/25 13:45 Ordered Complete Blood Count Auto Diff Stat Lab 10/16/25 13:53 Completed Comprehensive Metabolic Panel Stat Lab 10/16/25 13:53 Completed HCG Qualitative, Serum Stat Lab 10/16/25 13:53 Completed Medical Decision Narrative: 35-year-old female presents to the emergency department with left eye visual disturbance that occurred several hours ago, now complete resolved, differential diagnose include but not limited to, vitreous hemorrhage, retinal attachment, floaters, complex migraine, migraine with aura, among others. I discussed this patient's case with the attending Dr. Crawley he saw and examined the patient as well. Obtain basic laboratory studies, hCG qualitative, will come CT head without contrast, CTA head and neck with and without contrast, and perform POCUS CBC grossly unremarkable hCG negative. CMP is unremarkable. Limited ocular ultrasound Indication: [ -Vision changes Identified structures: -[/L eye Findings: Left eye: Retina: [Normal] Lens: [Normal] Vitreous body: [anechoic] Optic nerve sheath diameter: [Normal (<6mm)] Foreign body: [absent] Impression: Left eye: [-Normal ocular ultrasound] Images [were saved] to permanent archive The study [was] technically adequate CPT 63072-01 This study was performed by me, and I personally interpreted all images/videos. Based on my clinical judgement, these images were [adequate/inadequate] and [did not] necessitate further imaging I along with the attending physician saw and examined the patient, patient is currently asymptomatic, no other visual changes or disturbances, with negative POCUS ocular ultrasound ruling out retinal attachment vitreous hemorrhage, will cancel CT head and CT angiogram studies due to low likelihood for TIA versus CVA, with patient asymptomatic at this time, no other risk factors. Patient was given strict ED return precautions, most likely ocular migraine, which patient had symptomatology as described as a central scotoma. Patient will need ophthalmology follow-up, discussed this with patient bedside patient is in agreement with the current treatment plan/discharge plan. Strict return precautions given. Critical Care Critical Care Time Critical Care Time: No
[2025-10-16 14:01] LABS: Hematocrit 38.4 % (37.0-47.0); Hemoglobin 13.1 g/dL (12.2-16.2); Immature Granulocytes % 0.3 %; Mean Corpuscular HGB Conc 34.1 g/dL (31.8-35.4); Mean Corpuscular Hemoglobin 30.0 pg (27.0-31.2); Mean Corpuscular Volume 87.9 fl (81-99); Nucleated Red Blood Cells % 0 %; Platelet Count 366 K/mm3 (142-424); Red Blood Count 4.37 M/mm3 (4.20-5.40); Red Cell Distribution Width-SD 43.8 fL; White Blood Count 8.9 K/mm3 (4.8-10.8)
[2025-10-16 14:15] LABS: Alanine Aminotransferase 21 U/L (12-78); Albumin Level 4.5 g/dl (3.5-5.0); Albumin/Globulin Ratio 1.6 (1.1-1.8); Alkaline Phosphatase 74 U/L (38-126); Anion Gap 16.1 mEq/L (5-15); Aspartate Amino Transferase 22 U/L (14-36); Bilirubin,Total 0.4 mg/dl (0.2-1.3); Blood Urea Nitrogen 11 mg/dl (7-17); Calcium 9.3 mg/dl (8.4-10.2); Carbon Dioxide 23 mmol/L (22.0-30.0); Chloride 105 mmol/L (98-107); Creatinine Clearance Estimated 121 mL/min (50-200); Creatinine,Serum 0.80 mg/dl (0.52-1.04); Estimated Glomerular Filt Rate 82 ml/min (>60); GFR (African American) 99 ML/MIN (>60); Globulin 2.9 g/dL (1.3-3.2); Glucose 82 mg/dl (74-100); Potassium 4.1 mmoL/L (3.5-5.1); Sodium 140 mmol/L (136-145); Total Protein,Serum 7.4 g/dl (6.3-8.2)
[2025-10-16 14:17] LABS: HCG Qualitative, Serum Negative (Negative)
[2025-10-16 14:54] VITALS: BP 146/89; PULSE 81; RESP 18; TEMP 37.1; O2SAT 98
== END 2025-10-16 14:56 | disposition home or self-care (01) ==
PROVIDERS: Physician Assistant; Emergency Provider Student in an Organized Health Care Education/Training Program; PCP Family Medicine
DX: H53.452 Other localized visual field defect, left eye (principal); Z88.2 Allergy status to sulfonamides; Z88.8 Allergy status to other drugs, medicaments and biological substances
CPT/HCPCS: 80053; 84703; 85025; 99284